=== PATIENT | male | born 1930 | race Caucasian/White ===

== ENCOUNTER 2017-06-29 19:39 | Inpatient (IN) | payer MEDICARE ==
--- NOTE | 2017-06-29 19:40 | ED Physician Chart ---
ED Chief Complaint/HPI - Patient Information Date Seen:: 06/29/17 Time Seen:: 19:40 Chief Complaint:: Increased confusion History of Present Illness:: 86 yo male was brought from SNF to ER for evaluation of increased confusion. The patient was recently diagnosed with UTI and was treated with levaquin. He had a cervical collar for a recent C2 fracture due to falls. ED Review of Systems - Review of Systems General/Constitutional: No fever Skin: No bruising Head: No headache Eyes: No pain ENT: No nasal drainage, Other (hearing loss) Neck: Neck pain Cardio Vascular: No chest pain Pulmonary: No SOB GI: No nausea, No vomiting Musculoskeletal: No bone or joint pain Neurological: Other (Confusion) ED Past Medical History - Past Medical History Past Medical History: HTN, CVA/TIA (with left side weakness), Other (UTI, CERVICAL 2 FRACTURE, RIGHT LEG CONTRACTED, A-FIB, MULTIPLE FALLS, PROSTATE CANCER, INTESTINAL AND RECTAL CANCER) Social History: Non Smoker, No Alcohol, No Drug Use Surgical History: None Family Medical History - Family Member Mother History Unknown: Yes ED Physical Exam - Physical Examination General/Constitutional: Awake Other Gen/Cons comments:: oriented to self and place Head: Atraumatic Eyes: PERRL Skin: No skin lesions ENMT: Nasal exam nl Other Neck comments:: Wearing cervical collar Respiratory: No Wheeze/Rhonchi/Rales Cardio Vascular: RRR, No murmur, gallop, rubs, NL S1 S2 GI: No tenderness/rebounding/guarding Extremities: No edema Other Neuro/Psych comments:: oriented to self and place ED Labs/Radiology/EKG Results - Radiology Results Results: CXR: no consolidation ED Assessment - Assessment General Assessment: Confusion Anemia Dehydration Assessment/Comments:: CBC, CMP, UA CXR, EKG NS 1L IV x 1 Admit to med surg ED Septic Shock - . Is Septic Shock (SBP<90, OR Lactate>4 mmol\L) present?: No ED Reassessment (Disposition) - Reassessment Reassessment Condition:: Unchanged - Patient Disposition Discharge/Transfer:: Acute Care w/in this hosp Admitting Medical Physician:: Adilia Handley ED Discharge Plan - Patient Disposition Admit/Discharge/Transfer: Acute Care w/in this hosp
[2017-06-29 20:01] LABS: % BASOPHILS 0.7 % (0.0-2.0); % EOSINOPHILS 2.7 % (0.0-5.0); % LYMPHOCYTES 24.1 % (20.0-50.0); % MONOCYTES 8.1 % (2.0-10.0); % NEUTROPHILS 64.4 % (40.0-80.0); EOSINOPHILE ABSOLUTE 0.2 Th/cmm (0.1-0.4); HEMATOCRIT 35.1 % (41.0-60); HEMOGLOBIN 11.6 gm/dL (12-16); LYMPHOCYTE ABSOLUTE 1.5 Th/cmm (1.5-3.0); MEAN CELL VOLUME 93.2 fl (80-99); MEAN CORPUSCULAR HEMOGLOBIN 30.8 pg (27.0-31.0); MEAN PLATELET VOLUME 6.8 fl; MONOCYTE ABSOLUTE 0.5 Th/cmm (0.3-1.0); NEUTROPHILE ABSOLUTE 3.9 Th/cmm (1.8-8.0); PLATELET COUNT 227 Th/cmm (150-400); RED BLOOD COUNT 3.76 Mil/cmm (3.80-5.80); RED CELL DISTRIBUTION WIDTH 13.5 % (11.5-20.0); WHITE BLOOD COUNT 6.1 Th/cmm (4.8-10.8)
[2017-06-29 20:19] LABS: ALB/GLOB RATIO 1.1 (1.0-1.8); ALBUMIN 3.3 gm/dL (4.2-5.5); ALKALINE PHOSPHATASE 58 U/L (34-104); ANION GAP 9.9 (7.0-16.0); BILIRUBIN,TOTAL 0.5 mg/dL (0.3-1.0); BUN - UREA NITROGEN 14 mg/dL (7-25); CALCIUM SERUM 8.8 mg/dL (8.6-10.3); CHLORIDE 104 mEq/L (98-107); CREATININE - SERUM 0.7 mg/dL (0.7-1.3); GLUCOSE 99 mg/dL (70-105); POTASSIUM SERUM 3.9 mEq/L (3.5-5.1); SGOT 19 U/L (13-39); SGPT/ALT 15 U/L (7-52); SODIUM SERUM 135 mEq/L (136-145); TOTAL PROTEIN,SERUM 6.2 gm/dL (6.0-8.3)
[2017-06-29 21:10] LABS: URINE MICROSCOPIC INDICATED? YES; URINE SOURCE RANDOM
[2017-06-29 21:13] LABS: URINE BILIRUBIN NEGATIVE (NEGATIVE); URINE BLOOD NEGATIVE (NEGATIVE); URINE GLUCOSE (UA) NEGATIVE (NEGATIVE); URINE KETONE TRACE mg/dL (NEGATIVE); URINE LEUKOCYTE ESTERASE NEGATIVE (NEGATIVE); URINE NITRATE NEGATIVE (NEGATIVE); URINE PROTEIN NEGATIVE (NEGATIVE)
[2017-06-29 21:20] LABS: URINE CLARITY CLEAR (CLEAR); URINE COLOR YELLOW
[2017-06-29 21:21] LABS: URINE BACTERIA NONE SEEN /hpf (NONE SEEN); URINE EPITHELIAL CELLS NONE SEEN /lpf (FEW); URINE RBC NONE SEEN /hpf (0-5); URINE WBC NONE SEEN /hpf (0-5)
[2017-06-29] MEDS ORDERED: Sodium Chloride 0.9% 1,000 ML IV ONE (21:33)
[2017-06-30] MEDS ORDERED: cefTRIAXone 1 GM in Sodium Chloride 0.9% 50 ML IV ONE
[2017-06-30] MEDS: Sodium Chloride 0.45% 1,000 ML IV SCH ×3 (00:59→19:41)
[2017-06-30 04:13] VITALS: BP 134/67
[2017-06-30 05:51] LABS: % BASOPHILS 0.8 % (0.0-2.0); % LYMPHOCYTES 17.7 % (20.0-50.0); % MONOCYTES 6.2 % (2.0-10.0); % NEUTROPHILS 73.3 % (40.0-80.0); BASOPHILE ABSOLUTE 0.1 Th/cumm (0-0.2); EOSINOPHILE ABSOLUTE 0.2 Th/cmm (0.1-0.4); HEMATOCRIT 34.2 % (41.0-60); HEMOGLOBIN 11.7 gm/dL (12-16); LYMPHOCYTE ABSOLUTE 1.5 Th/cmm (1.5-3.0); MEAN CELL VOLUME 92.5 fl (80-99); MEAN CORPUSCULAR HEMOGLOBIN 31.5 pg (27.0-31.0); MEAN CORPUSCULAR HGB CONC 34.1 pg (28.0-36.0); MONOCYTE ABSOLUTE 0.5 Th/cmm (0.3-1.0); PLATELET COUNT 207 Th/cmm (150-400); RED CELL DISTRIBUTION WIDTH 13.4 % (11.5-20.0)
[2017-06-30 05:56] LABS: WHITE BLOOD COUNT 8.3 Th/cmm (4.8-10.8)
[2017-06-30 06:05] LABS: ANION GAP 8.7 (7.0-16.0); BUN - UREA NITROGEN 14 mg/dL (7-25); CALCIUM SERUM 8.7 mg/dL (8.6-10.3); CHLORIDE 104 mEq/L (98-107); CHOLESTEROL 163 mg/dL (<200); CREATININE - SERUM 0.7 mg/dL (0.7-1.3); GLUCOSE 104 mg/dL (70-105); HDL -HIGH DENSITY LIPOPROTEIN 58 mg/dL (23-92); POTASSIUM SERUM 3.7 mEq/L (3.5-5.1); SODIUM SERUM 133 mEq/L (136-145); TRIGLYCERIDES 93 mg/dL (<150)
--- NOTE | 2017-06-30 08:12 | Diagnostic Imaging Report ---
Chest x-ray single view History: Shortness of breath Comparison: None The heart size is normal. No focal pulmonary parenchymal processes. No hilar or mediastinal abnormalities. COPD changes are noted Impression: No acute abnormalities, COPD changes bilaterally.
[2017-06-30] MEDS ORDERED: VTE Chemical Prophylaxis Screen/Admission MC PRN (09:45)
[2017-06-30] MEDS ORDERED: Influenza Vaccine 0.5 mL Syr IM ONE (10:21)
[2017-06-30] MEDS ORDERED: Pneumococcal Vaccine 0.5 mL Vial IM ONE (10:21)
--- NOTE | 2017-06-30 10:52 | Diagnostic Imaging Report ---
Head CT without intravenous contrast Indication: confusion Comparison: None Technique: Axial images were obtained from the vertex to the skull base without IV contrast. Coronal reconstructions were made. Total DLP: 533, CTDI31.3 FINDINGS: Images of the brain obtained without contrast demonstrate no evidence of an acute hemorrhage. Atrophy noted. Moderate white matter is noted. The ventricles and basal cisterns are patent. No mass effect or midline shift. There is minimal atherosclerosis of carotid siphons. No evidence of a skull fracture or focal soft tissue swelling. There is irregularity of the left calvarium frontal calvarium. No focal soft tissue swelling. Chronic appearing left leg zygomatic arch fracture is noted. IMPRESSION: No evidence of an acute intracranial hemorrhage. Atrophy. Moderate supratentorial white matter disease which is nonspecific and may be due to chronic microvessel ischemia. Irregularity of the left likely calvarium which may be sequela of previous trauma/possibly old fracture or old surgery, please correlate clinically. Chronic appearing left leg zygomatic arch fracture. Please correlate with clinical findings.
[2017-06-30] MEDS: cefTRIAXone 1 GM in 0.9% NS 50 ML IV SCH (21:11)
[2017-07-01] MEDS: Sodium Chloride 0.45% 1,000 ML IV SCH ×3 (03:19→15:17)
[2017-07-01] MEDS: cefTRIAXone 1 GM in 0.9% NS 50 ML IV SCH (21:20)
[2017-07-02] MEDS: Sodium Chloride 0.45% 1,000 ML IV SCH ×2 (07:21)
--- NOTE | 2017-07-06 00:46 | History & Physical ---
ADMIT DATE: 06/30/2017 HISTORY OF PRESENT ILLNESS: The patient was admitted on 06/29/2017 to [facility]. Actually, the patient came from [facility] because of increasing confusion, agitation and diagnosed as UTI. REVIEW OF SYSTEMS: Negative. PAST MEDICAL HISTORY: Hypertension, history of CVA, history of atrial fib, history of multiple falls, history of prostate CA. PHYSICAL EXAMINATION: HEENT: Head examination is normal. ENT normal. LUNGS: Clear. CARDIOVASCULAR SYSTEM: S1, S2 heard. ABDOMEN: Soft. Bowel sounds are present. CENTRAL NERVOUS SYSTEM: Increasing confusion. DIAGNOSES: Toxic metabolic encephalopathy, anemia, dehydration, sepsis, history of CVA, history of hypertension, history of atrial fib. The patient is being admitted. We will go ahead and have a workup including antibiotic, and ID doctor and Neurology has been called. JOB# [id number]
--- NOTE | 2017-07-31 18:50 | Discharge Summary ---
DATE OF DISCHARGE: 07/02/2017 ADMITTING DIAGNOSES: Toxic metabolic encephalopathy, anemia, dehydration, sepsis, history of cerebrovascular accident, history of hypertension, history of atrial fibrillation, and chronic obstructive pulmonary disease. The patient was treated for all of that including Neurology consult and ID consult and Cardiology consult. The patient improved and the patient was in stable condition on 07/02/2017. FINAL DIAGNOSES: Improved mental status, status post sepsis, history of hypertension, history of atrial fibrillation, history of cerebrovascular accident, and history of chronic obstructive pulmonary disease was made. The patient is going to be transferred back to [facility] where I will be following the patient. CONDITION AT THE TIME OF DISCHARGE: Stable. MEDICATIONS: See the reconciliation sheet. ACTIVITY: As tolerated. JOB# [id number]
== END 2017-07-02 15:15 | disposition home or self-care (01) | DRG 871 ==
LOC: ER 19:39 → MSI 22:39 → TELE 06-30 00:11
PROVIDERS: ADMIT Internal Medicine; ATTEND Internal Medicine
DX: A41.9 Sepsis, unspecified organism (principal); G92 Toxic encephalopathy; I48.91 Unspecified atrial fibrillation; E86.0 Dehydration; I69.354 Hemiplegia and hemiparesis following cerebral infarction affecting left non-dominant side; D64.9 Anemia, unspecified; R41.0 Disorientation, unspecified; Z66 Do not resuscitate; I10 Essential (primary) hypertension; Z85.46 Personal history of malignant neoplasm of prostate
CPT/HCPCS: 36415-UA; 70450-TC; 71045-TC; 80048-TC; 80053-TC; 80061-TC; 81001-TC; 82140-TC; 83880-TC; 84443-TC; 84484-TC; 85025-TC; 87086-90; 93005; J0696; J2060; J7030

== ENCOUNTER 2018-04-08 14:59 | Inpatient (IN) | payer MEDICARE, MEDICAID ==
[2018-04-08] MEDS ORDERED: Lactated Ringer 1,000 ML IV ONE (15:03)
[2018-04-08 15:34] LABS: % BASOPHILS 3.6 % (0.0-2.0); % EOSINOPHILS 1.7 % (0.0-5.0); % LYMPHOCYTES 18.8 % (20.0-50.0); % MONOCYTES 4.6 % (2.0-10.0); % NEUTROPHILS 71.3 % (40.0-80.0); BASOPHILE ABSOLUTE 0.3 Th/cumm (0-0.2); EOSINOPHILE ABSOLUTE 0.1 Th/cmm (0.1-0.4); HEMATOCRIT 38.2 % (41.0-60); HEMOGLOBIN 13.1 gm/dL (12-16); LYMPHOCYTE ABSOLUTE 1.5 Th/cmm (1.5-3.0); MEAN CELL VOLUME 92.1 fl (80-99); MEAN CORPUSCULAR HEMOGLOBIN 31.5 pg (27.0-31.0); MEAN CORPUSCULAR HGB CONC 34.2 pg (28.0-36.0); MEAN PLATELET VOLUME 8.4 fl; MONOCYTE ABSOLUTE 0.4 Th/cmm (0.3-1.0); NEUTROPHILE ABSOLUTE 5.9 Th/cmm (1.8-8.0); PLATELET COUNT 159 Th/cmm (150-400); RED BLOOD COUNT 4.15 Mil/cmm (3.80-5.80); RED CELL DISTRIBUTION WIDTH 13.8 % (11.5-20.0); WHITE BLOOD COUNT 8.2 Th/cmm (4.8-10.8)
[2018-04-08 15:57] LABS: ALBUMIN 3.8 gm/dL (4.2-5.5); ALKALINE PHOSPHATASE 67 U/L (34-104); AMYLASE SERUM 18 U/L (29-103); BILIRUBIN,TOTAL 0.6 mg/dL (0.3-1.0); BUN - UREA NITROGEN 25 mg/dL (7-25); CALCIUM SERUM 9.4 mg/dL (8.6-10.3); CARBON DIOXIDE 23.5 mEq/L (21.0-31.0); CHLORIDE 106 mEq/L (98-107); CREATININE - SERUM 1.1 mg/dL (0.7-1.3); GLUCOSE 102 mg/dL (70-105); LIPASE 10 U/L (11-82); MAGNESIUM 2.2 mg/dL (1.9-2.7); POTASSIUM SERUM 4.5 mEq/L (3.5-5.1); SGOT 19 U/L (13-39); SGPT/ALT 10 U/L (7-52); SODIUM SERUM 137 mEq/L (136-145); TOTAL PROTEIN,SERUM 7.5 gm/dL (6.0-8.3)
[2018-04-08 16:33] LABS: URINE BILIRUBIN NEGATIVE (NEGATIVE); URINE BLOOD NEGATIVE (NEGATIVE); URINE GLUCOSE (UA) NEGATIVE (NEGATIVE); URINE KETONE TRACE mg/dL (NEGATIVE); URINE LEUKOCYTE ESTERASE SMALL (NEGATIVE); URINE NITRATE NEGATIVE (NEGATIVE); URINE PROTEIN NEGATIVE (NEGATIVE)
[2018-04-08 16:35] LABS: URINE CLARITY CLEAR (CLEAR); URINE COLOR YELLOW; URINE MICROSCOPIC INDICATED? YES
[2018-04-08 16:38] LABS: URINE SOURCE CLEAN CATCH
[2018-04-08 16:39] LABS: URINE BACTERIA 3+ /hpf (NONE SEEN); URINE EPITHELIAL CELLS FEW /lpf (FEW); URINE RBC 0-2 /hpf (0-5)
--- NOTE | 2018-04-08 16:41 | ED Physician Chart ---
ED Chief Complaint/HPI - Patient Information Date Seen:: 04/08/18 Time Seen:: 15:22 Chief Complaint:: abd pain, n and v History of Present Illness:: abd pain, n and v in a patient with prior abdominal surgery for colon cancer resection patient last passed gas this a.m. Allergies:: Allergies Allergy/AdvReac Type Severity Reaction Status Date / Time No Known Allergies Allergy Verified 06/29/17 19:59 Vitals:: Vital Signs - 8 hr 04/08/18 15:22 Temp 98.2 F HR 69 RR 19 BP 122/63 O2 Sat % 98 Historian:: Family Member, Medical Records Review:: Nurse's Note Reviewed, Transfer documents Reviewed ED Review of Systems - Review of Systems General/Constitutional: No fever, No chills, No weight loss, No weakness, No diaphoresis, No edema, No loss of appetite Skin: No skin lesions, No rash, No bruising Head: No headache, No light-headedness Eyes: No loss of vision, No pain, No diplopia ENT: No earache, No nasal drainage, No sore throat, No tinnitus Neck: No neck pain, No swelling, No thyromegaly, No stiffness, No mass noted Cardio Vascular: No chest pain, No palpitations, No PND, No orthopnea, No edema Pulmonary: No SOB, No cough, No sputum, No wheezing GI: Nausea, Vomiting, No diarrhea, Pain, No melena, No hematochezia, No constipation, No hematemesis G/U: No dysuria, No frequency, No hematuria Musculoskeletal: No bone or joint pain, No back pain, No muscle pain Endocrine: No polyuria, No polydipsia Psychiatric: No prior psych history, No depression, No anxiety, No suicidal ideation Hematopoietic: No bruising, No lymphadenopathy Allergic/Immuno: No urticaria, No angioedema Neurological: No syncope, No focal symptoms, No weakness, No paresthesia, No headache, No seizure, No dizziness, No confusion, No vertigo ED Past Medical History - Past Medical History Obtainable: No Past Medical History: Other (prostate cancer; colon cancer with surgical resection) Surgical History: other (colon cancer (history provided by daughter after case presentation to Dr. Kiran)) Family Medical History - Family Member Mother History Unknown: Yes ED Physical Exam - Physical Examination General/Constitutional: Awake, Well-developed, well-nourished, Alert, No distress, Non-toxic appearing Other Gen/Cons comments:: not ambulatory due to contracted right knee. Head: Atraumatic Eyes: Lids, conjuctiva normal Skin: Nl inspection ENMT: External ears, nose nl Neck: Nontender, No nuchal rigidity Respiratory: Nl effort/Exclusion, Clear to Auscultation, No Wheeze/Rhonchi/Rales Cardio Vascular: RRR, No murmur, gallop, rubs, NL S1 S2 Other GI comments:: Distended abdomen with decreased bowel sounds. No tinkles or rushes. Tender to the touch. No peritoneal signs. Other Extremities comments:: R knee contracture. ED Labs/Radiology/EKG Results - Lab Results Results: Laboratory Tests 04/08/18 04/08/18 04/08/18 15:10 15:10 15:10 WBC 8.2 RBC 4.15 Hgb 13.1 Hct 38.2 L MCV 92.1 MCH 31.5 H MCHC Differential 34.2 RDW 13.8 Plt Count 159 MPV 8.4 Neutrophils % 71.3 Lymphocytes % 18.8 L Monocytes % 4.6 Eosinophils % 1.7 Basophils % 3.6 H Sodium 137 Potassium 4.5 Chloride 106 Carbon Dioxide 23.5 Anion Gap 12.0 BUN 25 Creatinine 1.1 Est GFR ( Amer) TNP Est GFR (Non-Af Amer) TNP BUN/Creatinine Ratio 22.7 Glucose 102 Whole Bld Lactic Acid Calcium 9.4 Phosphorus 3.0 Magnesium 2.2 Total Bilirubin 0.6 AST 19 ALT 10 Alkaline Phosphatase 67 Total Protein 7.5 Albumin 3.8 L Globulin 3.7 Albumin/Globulin Ratio 1.0 Amylase 18 L Lipase 10 L TSH 1.79 Urine Color Urine Clarity Urine pH Ur Specific [place] Urine Protein Urine Glucose (UA) Urine Ketones Urine Blood Urine Nitrate Urine Bilirubin Urine Urobilinogen Ur Leukocyte Esterase 04/08/18 04/08/18 15:10 16:25 WBC RBC Hgb Hct MCV MCH MCHC Differential RDW Plt Count MPV Neutrophils % Lymphocytes % Monocytes % Eosinophils % Basophils % Sodium Potassium Chloride Carbon Dioxide Anion Gap BUN Creatinine Est GFR ( Amer) Est GFR (Non-Af Amer) BUN/Creatinine Ratio Glucose Whole Bld Lactic Acid 0.97 Calcium Phosphorus Magnesium Total Bilirubin AST ALT Alkaline Phosphatase Total Protein Albumin Globulin Albumin/Globulin Ratio Amylase Lipase TSH Urine Color YELLOW Urine Clarity CLEAR Urine pH 6.0 Ur Specific [place] 1.025 Urine Protein NEGATIVE Urine Glucose (UA) NEGATIVE Urine Ketones TRACE Urine Blood NEGATIVE Urine Nitrate NEGATIVE Urine Bilirubin NEGATIVE Urine Urobilinogen 1.0 Ur Leukocyte Esterase SMALL H ED Assessment - Assessment General Assessment: spoke to Dr. Handley who will admit the patient. Phone call at 4:[address] Kiran to be consulted. Assessment/Comments:: Dr. Kiran informed of this consult at 4:45 p.m. EKG FROM 16:48:06 p.m.: normal sinus rhythm, movement artifact, nonspecific ST T wave changes. CT scan of the abdomen: "mildly dialted small and large bowel. non-specific apeparnace; severe degenerative chagnes of spin along with chronic changes about hps; ASVD; SLIGHT HAZINESS OF MESENTERY. FINDING OF QUESTIONABLE SIGNIFICANCE. ED Septic Shock - . Is Septic Shock (SBP<90, OR Lactate>4 mmol\\L) present?: No - <6hrs of presentation: Vital Signs: Vital Signs - 8 hr 04/08/18 15:22 Temp 98.2 F HR 69 RR 19 BP 122/63 O2 Sat % 98 ED Reassessment (Disposition) - Reassessment Reassessment Condition:: Improved - Diagnosis Diagnosis:: Partial small bowel obstruction, not complete - Patient Disposition Discharge/Transfer:: Acute Care w/in this hosp Admitted to:: Telemetry Admitting Medical Physician:: Adliia Handley Condition at Disposition:: Stable, Improved
[2018-04-08] MEDS ORDERED: Piperacillin Sodium/Tazobact 3.375 gm Vial IV ONE (16:48)
[2018-04-08] MEDS ORDERED: Morphine Sulfate 2 mg/mL 1mL Syr IV PRN ×2 (17:31→17:32)
--- NOTE | 2018-04-08 18:33 | General Progress Note ---
Subjective - Review of Systems Service Date: 04/08/18 Events since last encounter: chart reviewed question of SBO abdomen scar fromprevious surgery (patient unable to give info on what surgery) SBO series ordered Objective - Results Result Diagrams: 04/08/18 15:10 04/08/18 15:10 Recent Labs: Laboratory Last Values WBC 8.2 Th/cmm (4.8-10.8) 04/08/18 15:10 RBC 4.15 Mil/cmm (3.80-5.80) 04/08/18 15:10 Hgb 13.1 gm/dL (12-16) 04/08/18 15:10 Hct 38.2 % (41.0-60) L 04/08/18 15:10 MCV 92.1 fl (80-99) 04/08/18 15:10 MCH 31.5 pg (27.0-31.0) H 04/08/18 15:10 MCHC Differential 34.2 pg (28.0-36.0) 04/08/18 15:10 RDW 13.8 % (11.5-20.0) 04/08/18 15:10 Plt Count 159 Th/cmm (150-400) 04/08/18 15:10 MPV 8.4 fl 04/08/18 15:10 Neutrophils % 71.3 % (40.0-80.0) 04/08/18 15:10 Lymphocytes % 18.8 % (20.0-50.0) L 04/08/18 15:10 Monocytes % 4.6 % (2.0-10.0) 04/08/18 15:10 Eosinophils % 1.7 % (0.0-5.0) 04/08/18 15:10 Basophils % 3.6 % (0.0-2.0) H 04/08/18 15:10 Sodium 137 mEq/L (136-145) 04/08/18 15:10 Potassium 4.5 mEq/L (3.5-5.1) 04/08/18 15:10 Chloride 106 mEq/L (98-107) 04/08/18 15:10 Carbon Dioxide 23.5 mEq/L (21.0-31.0) 04/08/18 15:10 Anion Gap 12.0 (7.0-16.0) 04/08/18 15:10 BUN 25 mg/dL (7-25) 04/08/18 15:10 Creatinine 1.1 mg/dL (0.7-1.3) 04/08/18 15:10 Est GFR ( Amer) TNP 04/08/18 15:10 Est GFR (Non-Af Amer) TNP 04/08/18 15:10 BUN/Creatinine Ratio 22.7 04/08/18 15:10 Glucose 102 mg/dL (70-105) 04/08/18 15:10 Whole Bld Lactic Acid 0.97 mmol/L (0.60-1.99) 04/08/18 15:10 Calcium 9.4 mg/dL (8.6-10.3) 04/08/18 15:10 Phosphorus 3.0 mg/dL (2.5-5.0) 04/08/18 15:10 Magnesium 2.2 mg/dL (1.9-2.7) 04/08/18 15:10 Total Bilirubin 0.6 mg/dL (0.3-1.0) 04/08/18 15:10 AST 19 U/L (13-39) 04/08/18 15:10 ALT 10 U/L (7-52) 04/08/18 15:10 Alkaline Phosphatase 67 U/L (34-104) 04/08/18 15:10 Total Protein 7.5 gm/dL (6.0-8.3) 04/08/18 15:10 Albumin 3.8 gm/dL (4.2-5.5) L 04/08/18 15:10 Globulin 3.7 gm/dL 04/08/18 15:10 Albumin/Globulin Ratio 1.0 (1.0-1.8) 04/08/18 15:10 Amylase 18 U/L (29-103) L 04/08/18 15:10 Lipase 10 U/L (11-82) L 04/08/18 15:10 TSH 1.79 uIU/ml (0.34-5.60) 04/08/18 15:10 Urine Source CLEAN CATCH 04/08/18 16:25 Urine Color YELLOW 04/08/18 16:25 Urine Clarity CLEAR (CLEAR) 04/08/18 16:25 Urine pH 6.0 (4.6 - 8.0) 04/08/18 16:25 Ur Specific [place] 1.025 (1.005-1.030) 04/08/18 16:25 Urine Protein NEGATIVE mg/dL (NEGATIVE) 04/08/18 16:25 Urine Glucose (UA) NEGATIVE mg/dL (NEGATIVE) 04/08/18 16:25 Urine Ketones TRACE mg/dL (NEGATIVE) 04/08/18 16:25 Urine Blood NEGATIVE (NEGATIVE) 04/08/18 16:25 Urine Nitrate NEGATIVE (NEGATIVE) 04/08/18 16:25 Urine Bilirubin NEGATIVE (NEGATIVE) 04/08/18 16:25 Urine Urobilinogen 1.0 E.U./dL (0.2 - 1.0) 04/08/18 16:25 Ur Leukocyte Esterase SMALL (NEGATIVE) H 04/08/18 16:25 Urine RBC 0-2 /hpf (0-5) H 04/08/18 16:25 Urine WBC 6-10 /hpf (0-5) 04/08/18 16:25 Ur Epithelial Cells FEW /lpf (FEW) 04/08/18 16:25 Urine Bacteria 3+ /hpf (NONE SEEN) H 04/08/18 16:25 - Physical Exam Vitals and I&O: Vital Signs Temp 97.6 F 04/08/18 17:49 Pulse 60 04/08/18 17:49 Resp 71 04/08/18 17:49 BP 117/54 04/08/18 17:49 Pulse Ox 96 04/08/18 17:49 Intake & Output 04/07/18 04/08/18 04/08/18 18:59 06:59 18:59 Weight (lbs) 74.843 kg Other: Weight Source Estimated Active Medications: Current Medications Lactated Ringer's (Lactated Ringer) 1,000 mls @ 200 mls/hr IV .Q5H ONE Stop: 04/08/18 20:02 Last Admin: 04/08/18 15:27 Dose: 200 mls/hr Piperacillin Sod/Tazobactam (Sod 3.375 gm/ Sodium Chloride) 50 mls @ 100 mls/ hr IV X1 ONE Stop: 04/08/18 17:10 Last Admin: 04/08/18 16:50 Dose: 100 mls/hr Lactated Ringer's (Lactated Ringer) 1,000 mls @ 145 mls/hr IV .Q6H54M [facility] Stop: 06/07/18 17:29 Ceftriaxone Sodium 1 gm/ (Sodium Chloride) 50 mls @ 100 mls/hr IV Q24HR [facility] Stop: 06/07/18 17:44 Morphine Sulfate (Morphine) 1 mg IV Q4HR PRN PRN Reason: Pain (Mild) Stop: 06/07/18 17:30 Morphine Sulfate (Morphine) 2 mg IV Q4HR PRN PRN Reason: Pain (Moderate) Stop: 06/07/18 17:31 Ondansetron HCl (Zofran) 4 mg IV Q6HR PRN PRN Reason: Vomiting Stop: 06/07/18 17:28 Assessment/Plan - Problem List Patient Problems: All Active Problems WEAKNESS WITH NAUSEA/VOMITING (Acute)
[2018-04-08] MEDS ORDERED: Diatrizoate Meglumine/Diatri 30 mL Sol ONE (18:40)
[2018-04-08] MEDS: Lactated Ringer 1,000 ML IV SCH (21:43)
[2018-04-08] MEDS: cefTRIAXone 1 GM in Sodium Chloride 0.9% 50 ML IV SCH (21:49)
--- NOTE | 2018-04-08 21:58 | History & Physical ---
ADMIT DATE: 04/08/2018 HISTORY OF PRESENT ILLNESS: The patient is very well known to me. The patient resident of [facility]. The patient is known to have history of multiple problems including history of abdominal surgery in the past. The patient is known to have benign enlargement of the prostate, prostate cancer, colon cancer, surgical resection, and the patient has history of COPD. The patient came to the Emergency Room because of increasing nausea, vomiting, abdominal pain, and found to have subacute intestinal obstruction. ER doctor admitted the patient. REVIEW OF SYSTEMS: Other than abdominal pain and vomiting, negative PAST MEDICAL HISTORY: History of prostate cancer, colon cancer, surgical resection. PHYSICAL EXAMINATION: HEAD: Normal. ENT: Normal. NECK: Supple, nontender. LUNGS: Clear. CARDIOVASCULAR SYSTEM: S1, S2 heard. ABDOMEN: Soft. Abdomen is distended. Decreased bowel sounds. LABORATORY DATA: White count was 8.2, hemoglobin was 13, hematocrit was 38. Urine showed small leukocyte esterase positive. DIAGNOSES: Acute abdominal pain, subacute intestinal obstruction, history of prior surgery, colon history of prostate cancer, history of chronic obstructive pulmonary disease, and urinary tract infection. PLAN: The patient is being admitted. I will go ahead and give him antibiotics and IV fluids. Dr. Nile Amador, ID consult. JOB# [id number]
[2018-04-09 05:35] LABS: % BASOPHILS 0.5 % (0.0-2.0); % EOSINOPHILS 3.7 % (0.0-5.0); % LYMPHOCYTES 17.6 % (20.0-50.0); % MONOCYTES 7.6 % (2.0-10.0); % NEUTROPHILS 70.6 % (40.0-80.0); EOSINOPHILE ABSOLUTE 0.2 Th/cmm (0.1-0.4); HEMOGLOBIN 11.2 gm/dL (12-16); MEAN CELL VOLUME 92.8 fl (80-99); MEAN CORPUSCULAR HEMOGLOBIN 31.5 pg (27.0-31.0); MEAN PLATELET VOLUME 7.6 fl; MONOCYTE ABSOLUTE 0.4 Th/cmm (0.3-1.0); NEUTROPHILE ABSOLUTE 4.3 Th/cmm (1.8-8.0); PLATELET COUNT 153 Th/cmm (150-400); RED BLOOD COUNT 3.55 Mil/cmm (3.80-5.80); RED CELL DISTRIBUTION WIDTH 13.6 % (11.5-20.0); WHITE BLOOD COUNT 5.9 Th/cmm (4.8-10.8)
[2018-04-09 05:44] LABS: HEMATOCRIT 32.9 % (41.0-60)
[2018-04-09 05:50] LABS: AMYLASE SERUM 16 U/L (29-103); ANION GAP 12.6 (7.0-16.0); BUN - UREA NITROGEN 22 mg/dL (7-25); CALCIUM SERUM 8.4 mg/dL (8.6-10.3); CARBON DIOXIDE 21.2 mEq/L (21.0-31.0); CHLORIDE 109 mEq/L (98-107); CHOLESTEROL 115 mg/dL (<200); CREATININE - SERUM 0.9 mg/dL (0.7-1.3); GLUCOSE 96 mg/dL (70-105); HDL -HIGH DENSITY LIPOPROTEIN 46 mg/dL (23-92); LIPASE 5 U/L (11-82); POTASSIUM SERUM 3.8 mEq/L (3.5-5.1); SODIUM SERUM 139 mEq/L (136-145); TRIGLYCERIDES 49 mg/dL (<150)
[2018-04-09] MEDS: Lactated Ringer 1,000 ML IV SCH ×3 (05:52→20:49)
--- NOTE | 2018-04-09 08:06 | Diagnostic Imaging Report ---
Small bowel follow-through HISTORY: Abdominal distention, pain Water-soluble contrast administered orally. There is free flow contrast from the stomach. Dilated loops of small bowel noted through 3-4 hours. There is delayed transit to the colon without significant dilatation. Findings associated with a partial small bowel obstruction cannot be excluded. At 12 hours, contrast is noted within nondilated large bowel and within the rectal region. There has been complete passage of contrast through the small bowel. IMPRESSION: Delayed transit of contrast associated with dilated loops of small bowel which eventually passed through the colon. Changes associated with transient partial small bowel obstruction cannot be excluded. Clinical correlation and follow-up recommended.
--- NOTE | 2018-04-09 08:08 | Diagnostic Imaging Report ---
Portable chest x-ray HISTORY: Pain The overall heart size is difficult to assess with portable technique and a poor inspiration, but appears to be within normal limits. No focal pulmonary processes. No hilar or mediastinal abnormalities. IMPRESSION: No acute abnormalities
--- NOTE | 2018-04-09 08:12 | Diagnostic Imaging Report ---
CT scan abdomen and pelvis without intravenous contrast HISTORY: Pain, nausea/vomiting Total DLP equals 610 CTDI equals 12.4 Axial sections were obtained from the xiphoid process down to the pubic symphysis. Limited sections of the lower chest demonstrate chronic mild pleural and parenchymal changes within the right left lower hemithoracic regions. No focal lesions seen within the liver. The spleen appears normal. No focal abnormality seen in the region of the pancreas. No significant focal renal lesions. Atherosclerotic calcification seen in the aorta and iliac vessels. There are multiple loops of dilated small bowel. Nondilated large bowel is seen. Changes associated with small bowel obstruction cannot be excluded. No abnormal masses or fluid collections seen within the pelvis. The prostate gland is enlarged. There is a distended urinary bladder. Severe degenerative changes noted throughout the spine. IMPRESSION: 1. Mildly dilated small bowel. Changes associated with a degree of small bowel obstruction cannot be excluded. Clinical correlation is needed. 2. Mild haziness of the mesentery of questionable significance which should be correlated clinically. 3. Severe degenerative changes throughout the spine and about the hips 4. Atherosclerotic vascular changes
--- NOTE | 2018-04-09 08:20 | Diagnostic Imaging Report ---
Portable chest x-ray HISTORY: Nasogastric tube placement, shortness of breath Compared with the prior exam performed earlier in the day (1510 hours), a nasogastric tube is seen. The tip is in the region of the stomach. No change in the pulmonary status. IMPRESSION: 1. Nasogastric tube projecting over the gastric area.
[2018-04-09] MEDS: Rivastigmine 9.5 mg/24 hr Tdm TD SCH (08:45)
[2018-04-09] MEDS: Calcium Carb/Vit D 500 mg/200 U Tab PO SCH (08:45)
[2018-04-09] MEDS: Aspirin 81mg Chewable Tab PO SCH (08:46)
[2018-04-09] MEDS: Multivitamin w/ Minerals Tab PO SCH (08:46)
[2018-04-09] MEDS: Diltiazem CD 120 mg 24H PO SCH (08:46)
[2018-04-09] MEDS ORDERED: CALCIUM CARBONATE PO SCH (09:00)
[2018-04-09] MEDS ORDERED: VITAMIN D3 PO SCH (09:00)
[2018-04-09] MEDS ORDERED: [UNRECOGNIZED DRUG - OTHER] PO SCH (09:00)
[2018-04-09] MEDS ORDERED: DILTIAZEM HCL 240 MG PO SCH (09:00)
--- NOTE | 2018-04-09 10:42 | General Progress Note ---
Subjective - Review of Systems Service Date: 04/09/18 Events since last encounter: chart reviewed SBO series noted had BM, NGT drainage minimal start clears Objective - Results Result Diagrams: 04/09/18 05:30 04/09/18 05:30 Recent Labs: Laboratory Last Values WBC 5.9 Th/cmm (4.8-10.8) 04/09/18 05:30 RBC 3.55 Mil/cmm (3.80-5.80) L 04/09/18 05:30 Hgb 11.2 gm/dL (12-16) L 04/09/18 05:30 Hct 32.9 % (41.0-60) L D 04/09/18 05:30 MCV 92.8 fl (80-99) 04/09/18 05:30 MCH 31.5 pg (27.0-31.0) H 04/09/18 05:30 MCHC Differential 34.0 pg (28.0-36.0) 04/09/18 05:30 RDW 13.6 % (11.5-20.0) 04/09/18 05:30 Plt Count 153 Th/cmm (150-400) 04/09/18 05:30 MPV 7.6 fl 04/09/18 05:30 Neutrophils % 70.6 % (40.0-80.0) 04/09/18 05:30 Lymphocytes % 17.6 % (20.0-50.0) L 04/09/18 05:30 Monocytes % 7.6 % (2.0-10.0) 04/09/18 05:30 Eosinophils % 3.7 % (0.0-5.0) 04/09/18 05:30 Basophils % 0.5 % (0.0-2.0) 04/09/18 05:30 Sodium 139 mEq/L (136-145) 04/09/18 05:30 Potassium 3.8 mEq/L (3.5-5.1) 04/09/18 05:30 Chloride 109 mEq/L (98-107) H 04/09/18 05:30 Carbon Dioxide 21.2 mEq/L (21.0-31.0) 04/09/18 05:30 Anion Gap 12.6 (7.0-16.0) 04/09/18 05:30 BUN 22 mg/dL (7-25) 04/09/18 05:30 Creatinine 0.9 mg/dL (0.7-1.3) 04/09/18 05:30 Est GFR ( Amer) TNP 04/09/18 05:30 Est GFR (Non-Af Amer) TNP 04/09/18 05:30 BUN/Creatinine Ratio 24.4 04/09/18 05:30 Glucose 96 mg/dL (70-105) 04/09/18 05:30 Whole Bld Lactic Acid 0.97 mmol/L (0.60-1.99) 04/08/18 15:10 Calcium 8.4 mg/dL (8.6-10.3) L 04/09/18 05:30 Phosphorus 3.0 mg/dL (2.5-5.0) 04/08/18 15:10 Magnesium 2.2 mg/dL (1.9-2.7) 04/08/18 15:10 Total Bilirubin 0.6 mg/dL (0.3-1.0) 04/08/18 15:10 AST 19 U/L (13-39) 04/08/18 15:10 ALT 10 U/L (7-52) 04/08/18 15:10 Alkaline Phosphatase 67 U/L (34-104) 04/08/18 15:10 Total Protein 7.5 gm/dL (6.0-8.3) 04/08/18 15:10 Albumin 3.8 gm/dL (4.2-5.5) L 04/08/18 15:10 Globulin 3.7 gm/dL 04/08/18 15:10 Albumin/Globulin Ratio 1.0 (1.0-1.8) 04/08/18 15:10 Triglycerides 49 mg/dL (<150) 04/09/18 05:30 Cholesterol 115 mg/dL (<200) 04/09/18 05:30 LDL Cholesterol Direct 58 mg/dL (75-193) L 04/09/18 05:30 HDL Cholesterol 46 mg/dL (23-92) 04/09/18 05:30 Amylase 16 U/L (29-103) L 04/09/18 05:30 Lipase 5 U/L (11-82) L 04/09/18 05:30 TSH 0.74 uIU/ml (0.34-5.60) 04/09/18 05:30 Urine Source CLEAN CATCH 04/08/18 16:25 Urine Color YELLOW 04/08/18 16:25 Urine Clarity CLEAR (CLEAR) 04/08/18 16:25 Urine pH 6.0 (4.6 - 8.0) 04/08/18 16:25 Ur Specific [place] 1.025 (1.005-1.030) 04/08/18 16:25 Urine Protein NEGATIVE mg/dL (NEGATIVE) 04/08/18 16:25 Urine Glucose (UA) NEGATIVE mg/dL (NEGATIVE) 04/08/18 16:25 Urine Ketones TRACE mg/dL (NEGATIVE) 04/08/18 16:25 Urine Blood NEGATIVE (NEGATIVE) 04/08/18 16:25 Urine Nitrate NEGATIVE (NEGATIVE) 04/08/18 16:25 Urine Bilirubin NEGATIVE (NEGATIVE) 04/08/18 16:25 Urine Urobilinogen 1.0 E.U./dL (0.2 - 1.0) 04/08/18 16:25 Ur Leukocyte Esterase SMALL (NEGATIVE) H 04/08/18 16:25 Urine RBC 0-2 /hpf (0-5) H 04/08/18 16:25 Urine WBC 6-10 /hpf (0-5) 04/08/18 16:25 Ur Epithelial Cells FEW /lpf (FEW) 04/08/18 16:25 Urine Bacteria 3+ /hpf (NONE SEEN) H 04/08/18 16:25 - Physical Exam Vitals and I&O: Vital Signs Temp 98.6 F 04/09/18 08:44 Pulse 72 04/09/18 08:46 Resp 19 04/09/18 08:44 BP 124/68 04/09/18 08:46 Pulse Ox 98 04/09/18 08:44 Intake & Output 04/08/18 04/09/18 04/09/18 18:59 06:59 18:59 Intake Total 1100 Balance 1100 Weight (lbs) 74.843 kg 77.201 kg Intake: Intake, IV Amount 1000 Lactated Ringer 1,000 ml 1000 @ 145 mls/hr IV .Q6H54M [facility] Rx#:[id number] Other 100 Other: # Voids 3 # Bowel Movements 3 Stool Characteristics Soft Weight Source Estimated Bedscale Active Medications: Current Medications Acetaminophen (Tylenol) 650 mg PO Q6HR PRN PRN Reason: Pain (Mild) 1-3 Stop: 06/07/18 19:54 Amiodarone HCl (Cordarone) 200 mg PO DAILY [facility] Stop: 06/08/18 08:59 Last Admin: 04/09/18 08:45 Dose: 200 mg Aspirin (Aspirin Chewable) 81 mg PO DAILY [facility] Stop: 06/08/18 08:59 Last Admin: 04/09/18 08:46 Dose: 81 mg Calcium/Vitamin D (Oscal W/Vitamin D) 1 tab PO DAILY [facility] Stop: 06/08/18 08:59 Last Admin: 04/09/18 08:45 Dose: 1 tab Diltiazem HCl (Cardizem Cd) 240 mg PO DAILY [facility] Stop: 06/08/18 08:59 Last Admin: 04/09/18 08:46 Dose: 240 mg Famotidine (Pepcid) 20 mg PO HS [facility] Stop: 06/07/18 20:59 Last Admin: 04/08/18 21:55 Dose: 20 mg Lactated Ringer's (Lactated Ringer) 1,000 mls @ 145 mls/hr IV .Q6H54M [facility] Stop: 06/07/18 20:09 Last Admin: 04/09/18 05:52 Dose: 145 mls/hr Ceftriaxone Sodium 1 gm/ (Sodium Chloride) 50 mls @ 100 mls/hr IV Q24HR [facility] Stop: 06/07/18 19:44 Last Admin: 04/08/18 21:49 Dose: 100 mls/hr Losartan Potassium (Cozaar) 25 mg PO DAILY [facility] Stop: 06/08/18 08:59 Last Admin: 04/09/18 08:46 Dose: 25 mg Miscellaneous (Mirtazapine [Mirtazapine]) 7.5 mg PO HS [facility] Stop: 06/07/18 20:59 Morphine Sulfate (Morphine) 1 mg IV Q4HR PRN PRN Reason: Pain (Mild) 1-3 Stop: 06/07/18 17:30 Morphine Sulfate (Morphine) 2 mg IV Q4HR PRN PRN Reason: Pain (Moderate) 4-7 Stop: 06/07/18 17:31 Ondansetron HCl (Zofran) 4 mg IV Q6HR PRN PRN Reason: Vomiting Stop: 06/07/18 17:28 Rivastigmine (Exelon 9.5 Mg/24 Hr Tdm) 1 patch TD DAILY [facility] Stop: 06/08/18 08:59 Last Admin: 04/09/18 08:45 Dose: 1 patch Tamsulosin HCl (Flomax) 0.4 mg PO DAILY [facility] Stop: 06/08/18 08:59 Last Admin: 04/09/18 08:45 Dose: 0.4 mg Tramadol HCl (Ultram) 50 mg PO Q6H PRN PRN Reason: Pain (Moderate) 4-7 Stop: 06/07/18 20:12 Assessment/Plan - Problem List Patient Problems: All Active Problems WEAKNESS WITH NAUSEA/VOMITING (Acute)
--- NOTE | 2018-04-09 16:08 | Consultation ---
DATE OF CONSULTATION: HEMATOLOGY/ONCOLOGY CONSULTATION REFERRING PHYSICIAN: Dr. Handley. REASON FOR CONSULTATION: Prostate cancer and colon cancer. HISTORY OF PRESENT ILLNESS: The patient is an 87-year-old male who was admitted because of nausea, vomiting, abdominal distention, and pain. He was found to have dilatation of the small bowel and so suggestive of a bowel obstruction; therefore admitted. He was seen by the surgeon. Initially was on nasogastric tube suction and now is on clear liquid diet with no vomiting this morning. PAST MEDICAL HISTORY: History of colon cancer, status post resection, prostate cancer, and COPD. Apparently, he had a prostatectomy in the past. MEDICATIONS: Reviewed. SOCIAL HISTORY: Resident of a nursing facility. PHYSICAL EXAMINATION: GENERAL: The patient is awake, not in distress. VITAL SIGNS: Stable. HEENT: Atraumatic. NECK: Supple. CHEST: Good air entry. ABDOMEN: Soft, scar in the midline. Slight distention. No guarding or rebound. EXTREMITIES: Unremarkable. NERVOUS SYSTEM: No focal deficits. LABORATORY DATA: CBC: White count 5.9, hemoglobin 11.2, platelets 153. Chemistry: Creatinine 0.9. Liver functions, AST and ALT are normal. TSH is 0.7 and urine unremarkable. The small bowel series showed dilated small bowel with delayed transit time suggestive of partial small-bowel obstruction and CT scan of the abdomen and pelvis showed no evidence of retroperitoneal lymphadenopathy or other lesions suggestive of metastases in the bone or liver. ASSESSMENT: Colon cancer and prostate cancer, status post surgical resection in the past. I will obtain a tumor marker CEA and PSA. There is no evidence of metastasis based on the imaging studies. The bowel dilatation seems to be partial obstruction and that is clinically improving. If the PSA is elevated, further workup will be pursued. Thank you Dr. Handley for the opportunity to participate in the care of this interesting case. JOB# [id number]
[2018-04-09] MEDS: cefTRIAXone 1 GM in Sodium Chloride 0.9% 50 ML IV SCH (19:01)
--- NOTE | 2018-04-09 20:07 | Consultation ---
DATE OF CONSULTATION: 04/09/2018 HISTORY OF PRESENT ILLNESS: This 87-year-old male was seen and examined at the courtesy of Dr. Handley regarding cardiac evaluation. This patient was transferred here from [facility]. He was transferred with abdominal pain, nausea, vomiting. He was evaluated in the Emergency Room and admitted with a diagnosis of partial small-bowel obstruction. Since then the patient has seen by Dr. Kiran. The patient has a history of multiple problems. According to the information available, the patient has history of hypertension, history of cardiac arrhythmia, history of colon cancer for which he has had abdominal surgery, history of prostate cancer. The patient also has COPD. He was also found to have UTI. Not much history available from the patient. PAST MEDICAL HISTORY: As mentioned above. FAMILY HISTORY: Not much available from the patient. REVIEW OF SYSTEMS: Basically was very limited information. The patient did complain of abdominal pain, nausea, vomiting, but there is no chest pain, no shortness of breath, no history of palpitations, no history of PND, no history of orthopnea, no history of syncope. PHYSICAL EXAMINATION: VITAL SIGNS: Heart rate was 74, blood pressure was 126/60, temperature 97.2, respiration 18, O2 saturation 96. SKIN: Normal. HEAD: Normocephalic. EYES: Conjunctivae were pink. There is no icterus in the eyes. Pupils reactive to light. NECK: There was no increased jugular venous distention, no thyromegaly, no lymphadenopathy. Carotids equal both sides. CHEST: Bilaterally symmetrical and moved well with respiration. Respiratory movements equal both sides. Trachea is central. There is note to percussion. Breath sounds, few scattered rales. CARDIOVASCULAR SYSTEM: PMI not well localized. There is no pulsation or thrill. No parasternal heave. S1 normal, S2 physiologic. There was no S3, no rub. ABDOMEN: Soft. There was no rigidity, no guarding. Bowel sounds are present. There was no edema, no calf tenderness. Peripheral pulses diminished. LABORATORY DATA: EKG showed a possibly sinus rhythm even though there is artifact and P-waves are not very clearly visible, intraventricular conduction delay. Looking at the labs, TSH was 0.74. WBC was 5.9, hemoglobin 11.2, hematocrit 32.9, MCV 92.8, MCH 31.5, MCHC 34, platelet count was 153. Sodium 139, potassium 3.8, chloride 109, CO2 31.2, glucose 196, BUN 22, creatinine 0.9. Lipid profile showed cholesterol of 115, triglycerides 49, HDL 46, LDL 58. Amylase was 16, lipase 5. Urine shows bacteria 3+, magnesium was 2.2, lactic acid 0.97. TSH 1.79. A small bowel follow through showed delayed transit of contrast associated with dilated loops of small bowel, which eventually passed through the colon, changes associated with transient partial small-bowel obstruction cannot be excluded. Clinical correlation and followup recommended. CT of the abdomen and the pelvis showed mildly dilated small bowel and large bowel, nonspecific appearance, severe degenerative changes spine along with chronic changes without hips, arteriosclerotic vascular disease, slight haziness of the mesentery finding of questionable significance. RECENT MEDICATIONS: Include Cordarone 200 mg daily, aspirin 81 mg daily, diltiazem 240 mg daily, Pepcid 20 daily. The patient is on IV fluids, Flomax 0.4, Rocephin 1 gram IV daily, losartan potassium 25 mg p.o. daily. The rhythm histories have shown rhythm is ____. The baseline is not clear but there is either question of sinus rhythm or junctional rhythm. We will have to repeat the EKG. IMPRESSION: History of hypertension, history of cardiac arrhythmia, abdominal pain, partial small-bowel obstruction, status post colon cancer, status post abdominal surgery, status post prostate cancer, chronic obstructive pulmonary disease and history of urinary tract infection. PLAN: At present, the patient's vital signs are stable. Since the patient is getting Cordarone 200 mg daily, and Cardizem also 240, since there is a question of a junctional rhythm we will cut down the dose of Cordarone to 100 mg daily. We will also get a repeat EKG and echocardiogram in a.m., echocardiogram to evaluate left ventricular function and valvular structure. Thank you. We will follow with you as needed. [facility]# [id number]
--- NOTE | 2018-04-09 22:22 | Progress Notes ---
DATE: 04/09/2018 SUBJECTIVE: The patient was seen in his room. The patient is asleep but easily arousable, but unfortunately the patient is a poor historian, still has on a NGT connected to low intermittent suction. Small bowel x-ray done today with the impression of dilated loops of small bowel, but the contrast eventually passed through the colon, possible partial small-bowel obstruction. Otherwise, the patient appears to be in no acute distress. OBJECTIVE: VITAL SIGNS: Temperature 98.6, heart rate 72, respirations 19, blood pressure 124/68. HEENT: Head is atraumatic and normocephalic. Eyes: Bilateral conjunctivae are clear. Bilateral pupils are equally round and reactive. NECK: Supple. No JVD. CARDIOVASCULAR: S1 and S2, without murmur. PULMONARY: Clear to auscultation. GASTROINTESTINAL: Soft and nontender without guarding. Positive bowel sounds. MUSCULOSKELETAL: No clubbing. No cyanosis noted. ASSESSMENT: 1. Acute abdominal pain. 2. Partial small-bowel obstruction. 3. History of chronic obstructive pulmonary disease. 4. Osteoarthritis. PLAN: We will continue current treatment. We will continue NGT connected to low intermittent suction. We will follow up with the surgeon for appropriate management. Treatment plans were discussed with the patient's nurse. Treatment plans were discussed with Dr. Handley. JOB# [id number]
[2018-04-10 06:17] LABS: % BASOPHILS 0.3 % (0.0-2.0); % LYMPHOCYTES 25.7 % (20.0-50.0); % MONOCYTES 9.1 % (2.0-10.0); % NEUTROPHILS 56.9 % (40.0-80.0); EOSINOPHILE ABSOLUTE 0.5 Th/cmm (0.1-0.4); HEMATOCRIT 34.2 % (41.0-60); HEMOGLOBIN 11.6 gm/dL (12-16); LYMPHOCYTE ABSOLUTE 1.5 Th/cmm (1.5-3.0); MEAN CELL VOLUME 92.6 fl (80-99); MEAN CORPUSCULAR HEMOGLOBIN 31.3 pg (27.0-31.0); MEAN CORPUSCULAR HGB CONC 33.8 pg (28.0-36.0); MEAN PLATELET VOLUME 7.5 fl; MONOCYTE ABSOLUTE 0.5 Th/cmm (0.3-1.0); NEUTROPHILE ABSOLUTE 3.5 Th/cmm (1.8-8.0); PLATELET COUNT 154 Th/cmm (150-400); RED BLOOD COUNT 3.69 Mil/cmm (3.80-5.80); RED CELL DISTRIBUTION WIDTH 13.7 % (11.5-20.0)
[2018-04-10 06:33] LABS: ALKALINE PHOSPHATASE 50 U/L (34-104); ANION GAP 8.5 (7.0-16.0); BILIRUBIN,TOTAL 0.4 mg/dL (0.3-1.0); BUN - UREA NITROGEN 14 mg/dL (7-25); CALCIUM SERUM 8.6 mg/dL (8.6-10.3); CARBON DIOXIDE 26.3 mEq/L (21.0-31.0); CHLORIDE 107 mEq/L (98-107); CREATININE - SERUM 0.8 mg/dL (0.7-1.3); GLUCOSE 92 mg/dL (70-105); POTASSIUM SERUM 3.8 mEq/L (3.5-5.1); SGOT 15 U/L (13-39); SGPT/ALT 10 U/L (7-52); SODIUM SERUM 138 mEq/L (136-145); TOTAL PROTEIN,SERUM 5.9 gm/dL (6.0-8.3)
--- NOTE | 2018-04-10 08:23 | Internal Medicine Prog Note ---
Internal Medicine Subjective - Subjective Patient seen and examined:: chart reviewed Patient is:: awake, verbal, in bed, talking Patient Complaints of:: other (abd pain ) Per staff patient has:: no adverse event Internal Medicine Objective - Results Result Diagrams: 04/10/18 05:45 04/10/18 05:45 Recent Labs: Laboratory Last Values WBC 6.0 Th/cmm (4.8-10.8) 04/10/18 05:45 RBC 3.69 Mil/cmm (3.80-5.80) L 04/10/18 05:45 Hgb 11.6 gm/dL (12-16) L 04/10/18 05:45 Hct 34.2 % (41.0-60) L 04/10/18 05:45 MCV 92.6 fl (80-99) 04/10/18 05:45 MCH 31.3 pg (27.0-31.0) H 04/10/18 05:45 MCHC Differential 33.8 pg (28.0-36.0) 04/10/18 05:45 RDW 13.7 % (11.5-20.0) 04/10/18 05:45 Plt Count 154 Th/cmm (150-400) 04/10/18 05:45 MPV 7.5 fl 04/10/18 05:45 Neutrophils % 56.9 % (40.0-80.0) 04/10/18 05:45 Lymphocytes % 25.7 % (20.0-50.0) 04/10/18 05:45 Monocytes % 9.1 % (2.0-10.0) 04/10/18 05:45 Eosinophils % 8.0 % (0.0-5.0) H 04/10/18 05:45 Basophils % 0.3 % (0.0-2.0) 04/10/18 05:45 Sodium 138 mEq/L (136-145) 04/10/18 05:45 Potassium 3.8 mEq/L (3.5-5.1) 04/10/18 05:45 Chloride 107 mEq/L (98-107) 04/10/18 05:45 Carbon Dioxide 26.3 mEq/L (21.0-31.0) 04/10/18 05:45 Anion Gap 8.5 (7.0-16.0) 04/10/18 05:45 BUN 14 mg/dL (7-25) 04/10/18 05:45 Creatinine 0.8 mg/dL (0.7-1.3) 04/10/18 05:45 Est GFR ( Amer) TNP 04/10/18 05:45 Est GFR (Non-Af Amer) TNP 04/10/18 05:45 BUN/Creatinine Ratio 17.5 04/10/18 05:45 Glucose 92 mg/dL (70-105) 04/10/18 05:45 Whole Bld Lactic Acid 0.97 mmol/L (0.60-1.99) 04/08/18 15:10 Calcium 8.6 mg/dL (8.6-10.3) 04/10/18 05:45 Phosphorus 3.0 mg/dL (2.5-5.0) 04/08/18 15:10 Magnesium 2.2 mg/dL (1.9-2.7) 04/08/18 15:10 Total Bilirubin 0.4 mg/dL (0.3-1.0) 04/10/18 05:45 AST 15 U/L (13-39) 04/10/18 05:45 ALT 10 U/L (7-52) 04/10/18 05:45 Alkaline Phosphatase 50 U/L (34-104) 04/10/18 05:45 Total Protein 5.9 gm/dL (6.0-8.3) L 04/10/18 05:45 Albumin 3.0 gm/dL (4.2-5.5) L 04/10/18 05:45 Globulin 2.9 gm/dL 04/10/18 05:45 Albumin/Globulin Ratio 1.0 (1.0-1.8) 04/10/18 05:45 Triglycerides 49 mg/dL (<150) 04/09/18 05:30 Cholesterol 115 mg/dL (<200) 04/09/18 05:30 LDL Cholesterol Direct 58 mg/dL (75-193) L 04/09/18 05:30 HDL Cholesterol 46 mg/dL (23-92) 04/09/18 05:30 Amylase 16 U/L (29-103) L 04/09/18 05:30 Lipase 5 U/L (11-82) L 04/09/18 05:30 TSH 0.74 uIU/ml (0.34-5.60) 04/09/18 05:30 Urine Source CLEAN CATCH 04/08/18 16:25 Urine Color YELLOW 04/08/18 16:25 Urine Clarity CLEAR (CLEAR) 04/08/18 16:25 Urine pH 6.0 (4.6 - 8.0) 04/08/18 16:25 Ur Specific [place] 1.025 (1.005-1.030) 04/08/18 16:25 Urine Protein NEGATIVE mg/dL (NEGATIVE) 04/08/18 16:25 Urine Glucose (UA) NEGATIVE mg/dL (NEGATIVE) 04/08/18 16:25 Urine Ketones TRACE mg/dL (NEGATIVE) 04/08/18 16:25 Urine Blood NEGATIVE (NEGATIVE) 04/08/18 16:25 Urine Nitrate NEGATIVE (NEGATIVE) 04/08/18 16:25 Urine Bilirubin NEGATIVE (NEGATIVE) 04/08/18 16:25 Urine Urobilinogen 1.0 E.U./dL (0.2 - 1.0) 04/08/18 16:25 Ur Leukocyte Esterase SMALL (NEGATIVE) H 04/08/18 16:25 Urine RBC 0-2 /hpf (0-5) H 04/08/18 16:25 Urine WBC 6-10 /hpf (0-5) 04/08/18 16:25 Ur Epithelial Cells FEW /lpf (FEW) 04/08/18 16:25 Urine Bacteria 3+ /hpf (NONE SEEN) H 04/08/18 16:25 - Physical Exam Vitals and I&O: Vital Signs Temp 96.1 F 04/10/18 07:40 Pulse 65 04/10/18 07:40 Resp 17 04/10/18 07:40 BP 127/67 04/10/18 07:40 Pulse Ox 99 04/10/18 07:40 Intake & Output 04/09/18 04/10/18 04/10/18 19:59 06:59 18:59 Intake Total Output Total Balance Weight (lbs) Intake: Intake, IV Amount Lactated Ringer 1,000 ml @ 145 mls/hr IV .Q6H54M [facility] Rx#:[id number] cefTRIAXone 1 gm In Sodium Chloride 0.9% 50 ml @ 100 mls/hr IV Q24HR [facility] Rx#:[id number] Oral Output: Urine Other: # Bowel Movements Stool Characteristics Weight Source Active Medications: Current Medications Acetaminophen (Tylenol) 650 mg PO Q6HR PRN PRN Reason: Pain (Mild) 1-3 Stop: 06/07/18 19:54 Amiodarone HCl (Cordarone) 100 mg PO DAILY [facility] Stop: 06/09/18 08:59 Aspirin (Aspirin Chewable) 81 mg PO DAILY [facility] Stop: 06/08/18 08:59 Last Admin: 04/09/18 08:46 Dose: 81 mg Calcium/Vitamin D (Oscal W/Vitamin D) 1 tab PO DAILY [facility] Stop: 06/08/18 08:59 Last Admin: 04/09/18 08:45 Dose: 1 tab Diltiazem HCl (Cardizem Cd) 240 mg PO DAILY [facility] Stop: 06/08/18 08:59 Last Admin: 04/09/18 08:46 Dose: 240 mg Famotidine (Pepcid) 20 mg PO HS [facility] Stop: 06/07/18 20:59 Last Admin: 04/09/18 20:47 Dose: 20 mg Ceftriaxone Sodium 1 gm/ (Sodium Chloride) 50 mls @ 100 mls/hr IV Q24HR [facility] Stop: 06/07/18 19:44 Last Infusion: 04/09/18 19:31 Dose: Infused Lactated Ringer's (Lactated Ringer) 1,000 mls @ 30 mls/hr IV .Q24H [facility] Stop: 06/08/18 20:29 Last Admin: 04/09/18 20:49 Dose: 30 mls/hr Losartan Potassium (Cozaar) 25 mg PO DAILY [facility] Stop: 06/08/18 08:59 Last Admin: 04/09/18 08:46 Dose: 25 mg Miscellaneous (Mirtazapine [Mirtazapine]) 7.5 mg PO HS [facility] Stop: 06/07/18 20:59 Morphine Sulfate (Morphine) 1 mg IV Q4HR PRN PRN Reason: Pain (Mild) 1-3 Stop: 06/07/18 17:30 Morphine Sulfate (Morphine) 2 mg IV Q4HR PRN PRN Reason: Pain (Moderate) 4-7 Stop: 06/07/18 17:31 Ondansetron HCl (Zofran) 4 mg IV Q6HR PRN PRN Reason: Vomiting Stop: 06/07/18 17:28 Rivastigmine (Exelon 9.5 Mg/24 Hr Tdm) 1 patch TD DAILY [facility] Stop: 06/08/18 08:59 Last Admin: 04/09/18 08:45 Dose: 1 patch Tamsulosin HCl (Flomax) 0.4 mg PO DAILY [facility] Stop: 06/08/18 08:59 Last Admin: 04/09/18 08:45 Dose: 0.4 mg Tramadol HCl (Ultram) 50 mg PO Q6H PRN PRN Reason: Pain (Moderate) 4-7 Stop: 06/07/18 20:12 General: alert HEENT: NC/AT Neck: Supple Lungs: CTAB Cardiovascular: RRR Abdomen: soft, tender Extremities: clear, edema Neurological: no change, alert Internal Medicine Assmt/Plan - Assessment Assessment: abd pain partial small-bowel obstruction h/o copd oa h/o prostrate ca h/o uti - Plan Plan: as per order sheet Nutritional Asmnt/Malnutr-PDOC - Dietary Evaluation Malnutrition Findings (Please click <Entered> for more info): Nutritional Asmnt/Malnutrition Start: 04/09/18 11: 36 Text: Status: Complete Freq: Protocol: Document 04/09/18 11:37 LILIA (Rec: 04/09/18 11:41 LILIA [id number]) Nutritional Asmnt/Malnutrition Patient General Information Diagnosis partial SBO, UTI Pertinent Medical Hx/Surgical Hx COPD, prostate CA, colon CA s/ p surgical resection Subjective Information Pt asleep at time of visit Current Diet Order/ Nutrition Support NPO Pertinent Medications oscal with vit D, pepcid, LR @ 145ml/hr (3480ml/day, 45ml/kg) , morphine, zofran Pertinent Labs 04/09: Na 139, K 3.8, Cl 109, CO2 21.2, BUN 22, Cr 0.9, Ca 8 .4, glucose 96 Nutritional Hx/Data Height 1.78 m Height (Calculated Centimeters) 177.8 Current Weight (lbs) 77.111 kg Weight (Calculated Kilograms) 77.1 Weight (Calculated Grams) 02893.7 Body Mass Index (BMI) 24.3 Weight Status Approriate GI Symptoms GI Symptoms None Last BM none noted Cultural/Ethnic/Yazdanism Belief unknown Usual diet at home unknown Skin Integrity/Comment: kady score 15 Estimated Nutritional Goals BEE in Kcals: Using Current wt Calories/Kcals/Kg 30kcals/kg Kcals Calculated 2310kcals/day Protein: Using Current wt Protein g/kg/kg Protein Calculated 77g/day Fluid: ml 2310ml/day (1ml/kcal) Nutritional Problem 1. Problem Problem Inadequate enteral/parenteral/ PO diet related to Etiology increased needs as evidenced by Signs/Symptoms: NPO currently, for parital SBO Intervention/Recommendation Comments Recommend initiating PN Expected Outcomes/Goals Expected Outcomes/Goals Nutrition support to meet estimated needs.
--- NOTE | 2018-04-10 09:06 | General Progress Note ---
Subjective - Review of Systems Service Date: 04/10/18 Events since last encounter: having BM, tolerating diet, denies pain advance diet Objective - Results Result Diagrams: 04/10/18 05:45 04/10/18 05:45 Recent Labs: Laboratory Last Values WBC 6.0 Th/cmm (4.8-10.8) 04/10/18 05:45 RBC 3.69 Mil/cmm (3.80-5.80) L 04/10/18 05:45 Hgb 11.6 gm/dL (12-16) L 04/10/18 05:45 Hct 34.2 % (41.0-60) L 04/10/18 05:45 MCV 92.6 fl (80-99) 04/10/18 05:45 MCH 31.3 pg (27.0-31.0) H 04/10/18 05:45 MCHC Differential 33.8 pg (28.0-36.0) 04/10/18 05:45 RDW 13.7 % (11.5-20.0) 04/10/18 05:45 Plt Count 154 Th/cmm (150-400) 04/10/18 05:45 MPV 7.5 fl 04/10/18 05:45 Neutrophils % 56.9 % (40.0-80.0) 04/10/18 05:45 Lymphocytes % 25.7 % (20.0-50.0) 04/10/18 05:45 Monocytes % 9.1 % (2.0-10.0) 04/10/18 05:45 Eosinophils % 8.0 % (0.0-5.0) H 04/10/18 05:45 Basophils % 0.3 % (0.0-2.0) 04/10/18 05:45 Sodium 138 mEq/L (136-145) 04/10/18 05:45 Potassium 3.8 mEq/L (3.5-5.1) 04/10/18 05:45 Chloride 107 mEq/L (98-107) 04/10/18 05:45 Carbon Dioxide 26.3 mEq/L (21.0-31.0) 04/10/18 05:45 Anion Gap 8.5 (7.0-16.0) 04/10/18 05:45 BUN 14 mg/dL (7-25) 04/10/18 05:45 Creatinine 0.8 mg/dL (0.7-1.3) 04/10/18 05:45 Est GFR ( Amer) TNP 04/10/18 05:45 Est GFR (Non-Af Amer) TNP 04/10/18 05:45 BUN/Creatinine Ratio 17.5 04/10/18 05:45 Glucose 92 mg/dL (70-105) 04/10/18 05:45 Whole Bld Lactic Acid 0.97 mmol/L (0.60-1.99) 04/08/18 15:10 Calcium 8.6 mg/dL (8.6-10.3) 04/10/18 05:45 Phosphorus 3.0 mg/dL (2.5-5.0) 04/08/18 15:10 Magnesium 2.2 mg/dL (1.9-2.7) 04/08/18 15:10 Total Bilirubin 0.4 mg/dL (0.3-1.0) 04/10/18 05:45 AST 15 U/L (13-39) 04/10/18 05:45 ALT 10 U/L (7-52) 04/10/18 05:45 Alkaline Phosphatase 50 U/L (34-104) 04/10/18 05:45 Total Protein 5.9 gm/dL (6.0-8.3) L 04/10/18 05:45 Albumin 3.0 gm/dL (4.2-5.5) L 04/10/18 05:45 Globulin 2.9 gm/dL 04/10/18 05:45 Albumin/Globulin Ratio 1.0 (1.0-1.8) 04/10/18 05:45 Triglycerides 49 mg/dL (<150) 04/09/18 05:30 Cholesterol 115 mg/dL (<200) 04/09/18 05:30 LDL Cholesterol Direct 58 mg/dL (75-193) L 04/09/18 05:30 HDL Cholesterol 46 mg/dL (23-92) 04/09/18 05:30 Amylase 16 U/L (29-103) L 04/09/18 05:30 Lipase 5 U/L (11-82) L 04/09/18 05:30 TSH 0.74 uIU/ml (0.34-5.60) 04/09/18 05:30 Urine Source CLEAN CATCH 04/08/18 16:25 Urine Color YELLOW 04/08/18 16:25 Urine Clarity CLEAR (CLEAR) 04/08/18 16:25 Urine pH 6.0 (4.6 - 8.0) 04/08/18 16:25 Ur Specific [place] 1.025 (1.005-1.030) 04/08/18 16:25 Urine Protein NEGATIVE mg/dL (NEGATIVE) 04/08/18 16:25 Urine Glucose (UA) NEGATIVE mg/dL (NEGATIVE) 04/08/18 16:25 Urine Ketones TRACE mg/dL (NEGATIVE) 04/08/18 16:25 Urine Blood NEGATIVE (NEGATIVE) 04/08/18 16:25 Urine Nitrate NEGATIVE (NEGATIVE) 04/08/18 16:25 Urine Bilirubin NEGATIVE (NEGATIVE) 04/08/18 16:25 Urine Urobilinogen 1.0 E.U./dL (0.2 - 1.0) 04/08/18 16:25 Ur Leukocyte Esterase SMALL (NEGATIVE) H 04/08/18 16:25 Urine RBC 0-2 /hpf (0-5) H 04/08/18 16:25 Urine WBC 6-10 /hpf (0-5) 04/08/18 16:25 Ur Epithelial Cells FEW /lpf (FEW) 04/08/18 16:25 Urine Bacteria 3+ /hpf (NONE SEEN) H 04/08/18 16:25 - Physical Exam Vitals and I&O: Vital Signs Temp 96.1 F 04/10/18 07:40 Pulse 65 04/10/18 07:40 Resp 17 04/10/18 07:40 BP 127/67 04/10/18 07:40 Pulse Ox 99 04/10/18 07:40 Intake & Output 04/09/18 04/10/18 04/10/18 19:59 06:59 18:59 Intake Total Output Total Balance Weight (lbs) Intake: Intake, IV Amount Lactated Ringer 1,000 ml @ 145 mls/hr IV .Q6H54M [facility] Rx#:[id number] cefTRIAXone 1 gm In Sodium Chloride 0.9% 50 ml @ 100 mls/hr IV Q24HR [facility] Rx#:[id number] Oral Output: Urine Other: # Bowel Movements Stool Characteristics Weight Source Active Medications: Current Medications Acetaminophen (Tylenol) 650 mg PO Q6HR PRN PRN Reason: Pain (Mild) 1-3 Stop: 06/07/18 19:54 Amiodarone HCl (Cordarone) 100 mg PO DAILY [facility] Stop: 06/09/18 08:59 Aspirin (Aspirin Chewable) 81 mg PO DAILY [facility] Stop: 06/08/18 08:59 Last Admin: 04/09/18 08:46 Dose: 81 mg Calcium/Vitamin D (Oscal W/Vitamin D) 1 tab PO DAILY [facility] Stop: 06/08/18 08:59 Last Admin: 04/09/18 08:45 Dose: 1 tab Diltiazem HCl (Cardizem Cd) 240 mg PO DAILY [facility] Stop: 06/08/18 08:59 Last Admin: 04/09/18 08:46 Dose: 240 mg Famotidine (Pepcid) 20 mg PO HS [facility] Stop: 06/07/18 20:59 Last Admin: 04/09/18 20:47 Dose: 20 mg Ceftriaxone Sodium 1 gm/ (Sodium Chloride) 50 mls @ 100 mls/hr IV Q24HR [facility] Stop: 06/07/18 19:44 Last Infusion: 04/09/18 19:31 Dose: Infused Lactated Ringer's (Lactated Ringer) 1,000 mls @ 30 mls/hr IV .Q24H [facility] Stop: 06/08/18 20:29 Last Admin: 04/09/18 20:49 Dose: 30 mls/hr Losartan Potassium (Cozaar) 25 mg PO DAILY [facility] Stop: 06/08/18 08:59 Last Admin: 04/09/18 08:46 Dose: 25 mg Miscellaneous (Mirtazapine [Mirtazapine]) 7.5 mg PO HS [facility] Stop: 06/07/18 20:59 Morphine Sulfate (Morphine) 1 mg IV Q4HR PRN PRN Reason: Pain (Mild) 1-3 Stop: 06/07/18 17:30 Morphine Sulfate (Morphine) 2 mg IV Q4HR PRN PRN Reason: Pain (Moderate) 4-7 Stop: 06/07/18 17:31 Ondansetron HCl (Zofran) 4 mg IV Q6HR PRN PRN Reason: Vomiting Stop: 06/07/18 17:28 Rivastigmine (Exelon 9.5 Mg/24 Hr Tdm) 1 patch TD DAILY [facility] Stop: 06/08/18 08:59 Last Admin: 04/09/18 08:45 Dose: 1 patch Tamsulosin HCl (Flomax) 0.4 mg PO DAILY [facility] Stop: 06/08/18 08:59 Last Admin: 04/09/18 08:45 Dose: 0.4 mg Tramadol HCl (Ultram) 50 mg PO Q6H PRN PRN Reason: Pain (Moderate) 4-7 Stop: 06/07/18 20:12 Assessment/Plan - Problem List Patient Problems: All Active Problems WEAKNESS WITH NAUSEA/VOMITING (Acute) Nutritional Asmnt/Malnutr-PDOC - Dietary Evaluation Malnutrition Findings (Please click <Entered> for more info): Nutritional Asmnt/Malnutrition Start: 04/09/18 11: 36 Text: Status: Complete Freq: Protocol: Document 04/09/18 11:37 LILIA (Rec: 04/09/18 11:41 LILIA CHILO- [email or web address]) Nutritional Asmnt/Malnutrition Patient General Information Diagnosis partial SBO, UTI Pertinent Medical Hx/Surgical Hx COPD, prostate CA, colon CA s/ p surgical resection Subjective Information Pt asleep at time of visit Current Diet Order/ Nutrition Support NPO Pertinent Medications oscal with vit D, pepcid, LR @ 145ml/hr (3480ml/day, 45ml/kg) , morphine, zofran Pertinent Labs 04/09: Na 139, K 3.8, Cl 109, CO2 21.2, BUN 22, Cr 0.9, Ca 8 .4, glucose 96 Nutritional Hx/Data Height 1.78 m Height (Calculated Centimeters) 177.8 Current Weight (lbs) 77.111 kg Weight (Calculated Kilograms) 77.1 Weight (Calculated Grams) 61004.7 Body Mass Index (BMI) 24.3 Weight Status Approriate GI Symptoms GI Symptoms None Last BM none noted Cultural/Ethnic/Restorationist Belief unknown Usual diet at home unknown Skin Integrity/Comment: kady score 15 Estimated Nutritional Goals BEE in Kcals: Using Current wt Calories/Kcals/Kg 30kcals/kg Kcals Calculated 2310kcals/day Protein: Using Current wt Protein g/kg/kg Protein Calculated 77g/day Fluid: ml 2310ml/day (1ml/kcal) Nutritional Problem 1. Problem Problem Inadequate enteral/parenteral/ PO diet related to Etiology increased needs as evidenced by Signs/Symptoms: NPO currently, for parital SBO Intervention/Recommendation Comments Recommend initiating PN Expected Outcomes/Goals Expected Outcomes/Goals Nutrition support to meet estimated needs.
[2018-04-10] MEDS: Diltiazem CD 120 mg 24H PO SCH (09:23)
[2018-04-10] MEDS: Aspirin 81mg Chewable Tab PO SCH (09:24)
[2018-04-10] MEDS: Calcium Carb/Vit D 500 mg/200 U Tab PO SCH (09:24)
[2018-04-10] MEDS: Multivitamin w/ Minerals Tab PO SCH (09:25)
[2018-04-10] MEDS: Rivastigmine 9.5 mg/24 hr Tdm TD SCH (09:25)
--- NOTE | 2018-04-10 13:03 | Consultation ---
DATE OF CONSULTATION: 04/08/2018 SURGICAL CONSULTATION REFERRING PHYSICIAN: Dr. Handley. REASON FOR CONSULTATION: Abdominal pain. Thank you for referring this patient to me. HISTORY OF PRESENT ILLNESS: This is an 87-year-old male admitted because of abdominal pain, nausea and vomiting. This patient came to the Emergency Room and because CT scan showed possible bowel obstruction, he was admitted. PAST MEDICAL HISTORY: Includes prostatic CA, colon CA, post-surgical resections. LABORATORY STUDIES: Show CBC to be essentially normal. The chemistry likewise is within normal limits. CT scan of the abdomen showed dilated small bowel, raising the question of bowel obstruction. There are also severe degenerative changes of the spine and hips. PHYSICAL EXAMINATION: The patient speaks Cypriot and appears to be alert. He is, however, unable to give any meaningful information about his surgeries. Abdomen, however, is flat and soft. There is moderate tenderness in the lower abdomen. The scar from previous surgery is noted at the midline. PLAN: Small bowel series will be ordered. In the meantime, keep the patient n.p.o. We will follow with you. JOB# [id number]
--- NOTE | 2018-04-10 17:07 | Consultation ---
Consult Note - Consult Note Service Date: 04/10/18 Referring Physician: Adilia Handley Consult Note: PHYSICIAN Consultation Note: Date of Admission: 04/08/18 Purpose of Consultation: UTI. Chief Complaint: Patient HARDEEP GOLD [facility] with PARTIAL SBO, UTI. History of Present Illness: 87 mL with past medical history of prostate cancer, colon cancer, surgical resection brought in from [facility] nursing facility for increasing nausea, vomiting and abdominal pain. Patient found to be a subacute intestinal obstruction. On initial evaluation, his temperature was 98.2F and WBC count was 8200. Urinalysis showed the bacteriuria and mild pyuria. Antibiotic-polo patient was started on Rocephin. With conservative management, his abdomen pain has resolved nausea and vomiting has resolved. ID consult was called for further antibiotic management to treat UTI. Past Medical History: BPH, colon cancers, status post ankle surgery and resection of the colon cancer, prostate cancer. Allergies Allergy/AdvReac Type Severity Reaction Status Date / Time No Known Allergies Allergy Verified 06/29/17 19:59 Vital Signs Temp 97.1 F 04/10/18 15:41 Pulse 74 04/10/18 15:41 Resp 18 04/10/18 16:00 BP 122/73 04/10/18 15:41 Pulse Ox 99 04/10/18 15:41 Intake & Output 04/09/18 04/10/18 04/10/18 19:59 06:59 18:59 Intake Total Output Total Balance Weight (lbs) Intake: Intake, IV Amount Lactated Ringer 1,000 ml @ 145 mls/hr IV .Q6H54M [facility] Rx#:[id number] cefTRIAXone 1 gm In Sodium Chloride 0.9% 50 ml @ 100 mls/hr IV Q24HR [facility] Rx#:[id number] Oral Output: Urine Other: # Bowel Movements Stool Characteristics Weight Source Laboratory Results - last 24 hr 04/10/18 04/10/18 05:45 05:45 WBC 6.0 RBC 3.69 L Hgb 11.6 L Hct 34.2 L MCV 92.6 MCH 31.3 H MCHC Differential 33.8 RDW 13.7 Plt Count 154 MPV 7.5 Neutrophils % 56.9 Lymphocytes % 25.7 Monocytes % 9.1 Eosinophils % 8.0 H Basophils % 0.3 Sodium 138 Potassium 3.8 Chloride 107 Carbon Dioxide 26.3 Anion Gap 8.5 BUN 14 Creatinine 0.8 Est GFR ( Amer) TNP Est GFR (Non-Af Amer) TNP BUN/Creatinine Ratio 17.5 Glucose 92 Calcium 8.6 Total Bilirubin 0.4 AST 15 ALT 10 Alkaline Phosphatase 50 Total Protein 5.9 L Albumin 3.0 L Globulin 2.9 Albumin/Globulin Ratio 1.0 Home Medication Medication Instructions Recorded Type Acetaminophen [Tylenol] 650 mg PO Q6HR PRN 06/29/17 History Amiodarone [Cordarone] 200 mg PO DAILY 06/29/17 History Aspirin 81 mg PO DAILY 06/29/17 History Diltiazem HCl [Cardizem LA] 240 mg PO DAILY 06/29/17 History Famotidine 20 mg PO HS 06/29/17 History Losartan Potassium [Cozaar] 25 mg PO DAILY 06/29/17 History Tamsulosin [Flomax] 0.4 mg PO DAILY 06/29/17 History Tramadol HCl [Ultram] 50 mg PO Q6H PRN 06/29/17 History Calcium Carbonate/Vitamin D3 1 each PO DAILY 04/08/18 History [Calcium 600-Vit D3 400 Caplet] Mirtazapine 7.5 mg PO HS 04/08/18 History Multivitamin w/ Minerals 1 tab PO DAILY 04/08/18 History [Theragran M] Rivastigmine [Exelon 9.5 mg/24 hr 1 patch TP DAILY 04/08/18 History Tdm] Current Medications Generic Name Dose Route Start Last Admin Trade Name Freq PRN Reason Stop Dose Admin Acetaminophen 650 mg 04/08/18 19:55 Tylenol PO 06/07/18 19:54 Q6HR PRN Pain (Mild) 1-3 Amiodarone HCl 100 mg 04/10/18 09:00 04/10/18 09:24 Cordarone PO 06/09/18 08:59 100 mg DAILY [facility] Administration Aspirin 81 mg 04/09/18 09:00 04/10/18 09:24 Aspirin Chewable PO 06/08/18 08:59 81 mg DAILY [facility] Administration Calcium/Vitamin D 1 tab 04/09/18 09:00 04/10/18 09:24 Oscal W/Vitamin D PO 06/08/18 08:59 1 tab DAILY [facility] Administration Diltiazem HCl 240 mg 04/09/18 09:00 04/10/18 09:23 Cardizem Cd PO 06/08/18 08:59 240 mg DAILY [facility] Administration Famotidine 20 mg 04/08/18 21:00 04/09/18 20:47 Pepcid PO 06/07/18 20:59 20 mg HS [facility] Administration Ceftriaxone Sodium 1 gm/ 50 mls @ 100 mls/hr 04/08/18 19:45 04/09/18 19:31 Sodium Chloride IV 06/07/18 19:44 Infused Q24HR [facility] Infusion Lactated Ringer's 1,000 mls @ 30 mls/hr 04/09/18 20:30 04/09/18 20:49 Lactated Ringer IV 06/08/18 20:29 30 mls/hr .Q24H [facility] Administration Losartan Potassium 25 mg 04/09/18 09:00 04/10/18 09:24 Cozaar PO 06/08/18 08:59 25 mg DAILY [facility] Administration Miscellaneous 7.5 mg 04/08/18 21:00 Mirtazapine [Mirtazapine] PO 06/07/18 20:59 HS [facility] Morphine Sulfate 1 mg 04/08/18 17:31 Morphine IV 06/07/18 17:30 Q4HR PRN Pain (Mild) 1-3 Morphine Sulfate 2 mg 04/08/18 17:32 Morphine IV 06/07/18 17:31 Q4HR PRN Pain (Moderate) 4-7 Ondansetron HCl 4 mg 04/08/18 17:31 Zofran IV 06/07/18 17:28 Q6HR PRN Vomiting Rivastigmine 1 patch 04/09/18 09:00 04/10/18 09:25 Exelon 9.5 Mg/24 Hr Tdm TD 06/08/18 08:59 1 patch DAILY [facility] Administration Tamsulosin HCl 0.4 mg 04/09/18 09:00 04/10/18 09:24 Flomax PO 06/08/18 08:59 0.4 mg DAILY [facility] Administration Tramadol HCl 50 mg 04/08/18 20:13 Ultram PO 06/07/18 20:12 Q6H PRN Pain (Moderate) 4-7 Review of Systems: A 12 point ROS was reviewed with the pertinent positive and negatives noted in the HPI. General/Constitutional: No fever, No chills, No weight loss, No weakness, No diaphoresis, No edema, No loss of appetite Skin: No skin lesions, No rash, No bruising Head: No headache, No light-headedness Eyes: No loss of vision, No pain, No diplopia ENT: No earache, No nasal drainage, No sore throat, No tinnitus Neck: No neck pain, No swelling, No thyromegaly, No stiffness, No mass noted Cardio Vascular: No chest pain, No palpitations, No PND, No orthopnea, No edema Pulmonary: No SOB, No cough, No sputum, No wheezing GI: Nausea, Vomiting, and abdominal pain has resolved. No diarrhea, Pain, No melena, No hematochezia, No constipation, No hematemesis G/U: No dysuria, No frequency, No hematuria Musculoskeletal: No bone or joint pain, No back pain, No muscle pain Endocrine: No polyuria, No polydipsia Psychiatric: No prior psych history, No depression, No anxiety, No suicidal ideation Hematopoietic: No bruising, No lymphadenopathy Allergic/Immuno: No urticaria, No angioedema Neurological: No syncope, No focal symptoms, No weakness, No paresthesia, No headache, No seizure, No dizziness, No confusion, No vertigo Social History Smoking Status Unknown if ever smoked Family Medical History Unknown. Physical Exam: General: Comfortable, in well-nourished well-developed not in acute distress. HEENT: Head: Normocytic, atraumatic oral cavity: Moist, pink tongue eyes: Pallor is present. No icterus. Pupil PERRLA. EOMI. Face is symmetrical. Neck: Supple, no JVD. No use of accessory neck muscles. Cardio: S1 and S2 within normal limits regular rhythm no murmur no gallop. Respiratory: Vesicular breath sound. No crackles. No wheezing. Abdominal: Soft, nontender, nondistended, bowel sounds present. Patient has made about surgical scars without any opening or any abnormalities. Genital/Urinary: Deferred. Extremities: No cyanosis, no clubbing, no edema. Pulses are palpable in all 4 limbs. Neurological: Alert, awake, oriented 3. Communicates well. Assessment: 1. UTI. 2. Small bowel obstruction, resolved. 3. BPH, last prostate CA. 4. History of colonic carcinoma, status post resection of the abdominal cavity. Plan: Continue Rocephin at this time. May change antibiotic to Bactrim single straight by mouth twice a day for 5 days total. On May give Bactrim DS 1 by mouth daily for 5 days. Thank you, Dr. Handley, for involving me in taking care of this patient. Perry Beckman Devesh N., M.D. [id number]
[2018-04-10] MEDS: cefTRIAXone 1 GM in Sodium Chloride 0.9% 50 ML IV SCH (18:45)
[2018-04-11] MEDS: Lactated Ringer 1,000 ML IV SCH (03:36)
[2018-04-11 08:42] LABS: BUN - UREA NITROGEN 9 mg/dL (7-25); CALCIUM SERUM 8.8 mg/dL (8.6-10.3); CARBON DIOXIDE 24.9 mEq/L (21.0-31.0); CHLORIDE 107 mEq/L (98-107); CREATININE - SERUM 0.8 mg/dL (0.7-1.3); GLUCOSE 101 mg/dL (70-105); POTASSIUM SERUM 3.9 mEq/L (3.5-5.1); SODIUM SERUM 139 mEq/L (136-145)
[2018-04-11] MEDS: Aspirin 81mg Chewable Tab PO SCH (09:31)
[2018-04-11] MEDS: Diltiazem CD 120 mg 24H PO SCH (09:31)
[2018-04-11] MEDS: Multivitamin w/ Minerals Tab PO SCH (09:31)
[2018-04-11] MEDS: Calcium Carb/Vit D 500 mg/200 U Tab PO SCH (09:31)
[2018-04-11] MEDS: Rivastigmine 9.5 mg/24 hr Tdm TD SCH (09:33)
[2018-04-11 09:36] LABS: % BASOPHILS 0.3 % (0.0-2.0); % EOSINOPHILS 2.4 % (0.0-5.0); % LYMPHOCYTES 20.2 % (20.0-50.0); % NEUTROPHILS 70.1 % (40.0-80.0); EOSINOPHILE ABSOLUTE 0.1 Th/cmm (0.1-0.4); HEMATOCRIT 35.4 % (41.0-60); LYMPHOCYTE ABSOLUTE 1.2 Th/cmm (1.5-3.0); MEAN CELL VOLUME 92.8 fl (80-99); MEAN CORPUSCULAR HEMOGLOBIN 31.6 pg (27.0-31.0); MEAN PLATELET VOLUME 7.8 fl; MONOCYTE ABSOLUTE 0.4 Th/cmm (0.3-1.0); NEUTROPHILE ABSOLUTE 4.2 Th/cmm (1.8-8.0); PLATELET COUNT 180 Th/cmm (150-400); RED BLOOD COUNT 3.81 Mil/cmm (3.80-5.80); RED CELL DISTRIBUTION WIDTH 13.4 % (11.5-20.0); WHITE BLOOD COUNT 5.9 Th/cmm (4.8-10.8)
--- NOTE | 2018-04-11 13:37 | Infectious Disease Prog Note ---
Infectious Disease Subjective - Review of Systems Service Date: 04/11/18 Subjective: There is no new change, no fever. Infectious Disease Objective - Results Result Diagrams: 04/11/18 08:18 04/11/18 08:18 Recent Labs: Laboratory Last Values WBC 5.9 Th/cmm (4.8-10.8) 04/11/18 08:18 RBC 3.81 Mil/cmm (3.80-5.80) 04/11/18 08:18 Hgb 12.0 gm/dL (12-16) 04/11/18 08:18 Hct 35.4 % (41.0-60) L 04/11/18 08:18 MCV 92.8 fl (80-99) 04/11/18 08:18 MCH 31.6 pg (27.0-31.0) H 04/11/18 08:18 MCHC Differential 34.0 pg (28.0-36.0) 04/11/18 08:18 RDW 13.4 % (11.5-20.0) 04/11/18 08:18 Plt Count 180 Th/cmm (150-400) 04/11/18 08:18 MPV 7.8 fl 04/11/18 08:18 Neutrophils % 70.1 % (40.0-80.0) 04/11/18 08:18 Lymphocytes % 20.2 % (20.0-50.0) 04/11/18 08:18 Monocytes % 7.0 % (2.0-10.0) 04/11/18 08:18 Eosinophils % 2.4 % (0.0-5.0) 04/11/18 08:18 Basophils % 0.3 % (0.0-2.0) 04/11/18 08:18 Sodium 139 mEq/L (136-145) 04/11/18 08:18 Potassium 3.9 mEq/L (3.5-5.1) 04/11/18 08:18 Chloride 107 mEq/L (98-107) 04/11/18 08:18 Carbon Dioxide 24.9 mEq/L (21.0-31.0) 04/11/18 08:18 Anion Gap 11.0 (7.0-16.0) 04/11/18 08:18 BUN 9 mg/dL (7-25) 04/11/18 08:18 Creatinine 0.8 mg/dL (0.7-1.3) 04/11/18 08:18 Est GFR ( Amer) TNP 04/11/18 08:18 Est GFR (Non-Af Amer) TNP 04/11/18 08:18 BUN/Creatinine Ratio 11.3 04/11/18 08:18 Glucose 101 mg/dL (70-105) 04/11/18 08:18 Whole Bld Lactic Acid 0.97 mmol/L (0.60-1.99) 04/08/18 15:10 Calcium 8.8 mg/dL (8.6-10.3) 04/11/18 08:18 Phosphorus 3.0 mg/dL (2.5-5.0) 04/08/18 15:10 Magnesium 2.2 mg/dL (1.9-2.7) 04/08/18 15:10 Total Bilirubin 0.4 mg/dL (0.3-1.0) 04/10/18 05:45 AST 15 U/L (13-39) 04/10/18 05:45 ALT 10 U/L (7-52) 04/10/18 05:45 Alkaline Phosphatase 50 U/L (34-104) 04/10/18 05:45 Total Protein 5.9 gm/dL (6.0-8.3) L 04/10/18 05:45 Albumin 3.0 gm/dL (4.2-5.5) L 04/10/18 05:45 Globulin 2.9 gm/dL 04/10/18 05:45 Albumin/Globulin Ratio 1.0 (1.0-1.8) 04/10/18 05:45 Triglycerides 49 mg/dL (<150) 04/09/18 05:30 Cholesterol 115 mg/dL (<200) 04/09/18 05:30 LDL Cholesterol Direct 58 mg/dL (75-193) L 04/09/18 05:30 HDL Cholesterol 46 mg/dL (23-92) 04/09/18 05:30 Amylase 16 U/L (29-103) L 04/09/18 05:30 Lipase 5 U/L (11-82) L 04/09/18 05:30 TSH 0.74 uIU/ml (0.34-5.60) 04/09/18 05:30 Urine Source CLEAN CATCH 04/08/18 16:25 Urine Color YELLOW 04/08/18 16:25 Urine Clarity CLEAR (CLEAR) 04/08/18 16:25 Urine pH 6.0 (4.6 - 8.0) 04/08/18 16:25 Ur Specific [place] 1.025 (1.005-1.030) 04/08/18 16:25 Urine Protein NEGATIVE mg/dL (NEGATIVE) 04/08/18 16:25 Urine Glucose (UA) NEGATIVE mg/dL (NEGATIVE) 04/08/18 16:25 Urine Ketones TRACE mg/dL (NEGATIVE) 04/08/18 16:25 Urine Blood NEGATIVE (NEGATIVE) 04/08/18 16:25 Urine Nitrate NEGATIVE (NEGATIVE) 04/08/18 16:25 Urine Bilirubin NEGATIVE (NEGATIVE) 04/08/18 16:25 Urine Urobilinogen 1.0 E.U./dL (0.2 - 1.0) 04/08/18 16:25 Ur Leukocyte Esterase SMALL (NEGATIVE) H 04/08/18 16:25 Urine RBC 0-2 /hpf (0-5) H 04/08/18 16:25 Urine WBC 6-10 /hpf (0-5) 04/08/18 16:25 Ur Epithelial Cells FEW /lpf (FEW) 04/08/18 16:25 Urine Bacteria 3+ /hpf (NONE SEEN) H 04/08/18 16:25 - Physical Exam Vitals and I&O: Vital Signs Temp 98.2 F 04/11/18 12:05 Pulse 74 04/11/18 12:05 Resp 18 04/11/18 12:05 BP 131/79 04/11/18 12:05 Pulse Ox 97 04/11/18 12:05 Intake & Output 04/10/18 04/11/18 04/11/18 18:59 06:59 18:59 Intake Total 520 1325.5 50 Output Total 500 700 Balance 520 825.5 -650 Weight (lbs) 81.193 kg 81.102 kg 81.102 kg Intake: Intake, IV Amount 1075.5 Lactated Ringer 1,000 ml 1025.5 @ 30 mls/hr IV .Q24H [facility] Rx#:[id number] cefTRIAXone 1 gm In 50 Sodium Chloride 0.9% 50 ml @ 100 mls/hr IV Q24HR [facility] Rx#:[id number] Oral 520 250 50 Output: Urine 500 700 Other: # Voids 4 2 3 # Bowel Movements 2 1 Stool Characteristics Soft Weight Source Bedscale Bedscale Bedscale Active Medications: Current Medications Acetaminophen (Tylenol) 650 mg PO Q6HR PRN PRN Reason: Pain (Mild) 1-3 Stop: 06/07/18 19:54 Amiodarone HCl (Cordarone) 100 mg PO DAILY [facility] Stop: 06/09/18 08:59 Last Admin: 04/11/18 09:31 Dose: 100 mg Aspirin (Aspirin Chewable) 81 mg PO DAILY [facility] Stop: 06/08/18 08:59 Last Admin: 04/11/18 09:31 Dose: 81 mg Calcium/Vitamin D (Oscal W/Vitamin D) 1 tab PO DAILY [facility] Stop: 06/08/18 08:59 Last Admin: 04/11/18 09:31 Dose: 1 tab Diltiazem HCl (Cardizem Cd) 240 mg PO DAILY [facility] Stop: 06/08/18 08:59 Last Admin: 04/11/18 09:31 Dose: 240 mg Famotidine (Pepcid) 20 mg PO HS [facility] Stop: 06/07/18 20:59 Last Admin: 04/10/18 20:46 Dose: 20 mg Ceftriaxone Sodium 1 gm/ (Sodium Chloride) 50 mls @ 100 mls/hr IV Q24HR [facility] Stop: 06/07/18 19:44 Last Infusion: 04/10/18 19:13 Dose: Infused Lactated Ringer's (Lactated Ringer) 1,000 mls @ 30 mls/hr IV .Q24H [facility] Stop: 06/08/18 20:29 Last Infusion: 04/11/18 06:00 Dose: 30 mls/hr Losartan Potassium (Cozaar) 25 mg PO DAILY [facility] Stop: 06/08/18 08:59 Last Admin: 04/11/18 09:31 Dose: 25 mg Mirtazapine (Remeron) 7.5 mg PO HS [facility] Stop: 06/07/18 20:59 Morphine Sulfate (Morphine) 1 mg IV Q4HR PRN PRN Reason: Pain (Mild) 1-3 Stop: 06/07/18 17:30 Morphine Sulfate (Morphine) 2 mg IV Q4HR PRN PRN Reason: Pain (Moderate) 4-7 Stop: 06/07/18 17:31 Ondansetron HCl (Zofran) 4 mg IV Q6HR PRN PRN Reason: Vomiting Stop: 06/07/18 17:28 Rivastigmine (Exelon 9.5 Mg/24 Hr Tdm) 1 patch TD DAILY [facility] Stop: 06/08/18 08:59 Last Admin: 04/11/18 09:33 Dose: 1 patch Tamsulosin HCl (Flomax) 0.4 mg PO DAILY [facility] Stop: 06/08/18 08:59 Last Admin: 04/11/18 09:31 Dose: 0.4 mg Tramadol HCl (Ultram) 50 mg PO Q6H PRN PRN Reason: Pain (Moderate) 4-7 Stop: 06/07/18 20:12 General: no acute distress, well developed, well nourished HEENT: atraumatic, normocephalic, PERRLA, EOMI Neck: supple, no thyromegaly, no lymphadenopathy Cardiovascular: S1S2, regular Lungs: clear to auscultation bilaterally, clear to percussion Abdomen: soft, no tender, no distended Extremities: no cyanosis, no clubbing, no edema Neurological: awake, alert, oriented Skin: intact Infectious Disease Assmt/Plan - Problem List Patient Problems: All Active Problems WEAKNESS WITH NAUSEA/VOMITING (Acute) - Assessment Assessment: 1. UTI. 2. Small bowel obstruction, resolved. 3. BPH, last prostate CA. 4. History of colonic carcinoma, status post resection of the abdominal cavity. - Plan Plan: Continue Rocephin at this time. May change antibiotic to Bactrim single straight by mouth twice a day for 5 days total. On May give Bactrim DS 1 by mouth daily for 5 days. Nutritional Asmnt/Malnutr-PDOC - Dietary Evaluation Malnutrition Findings (Please click <Entered> for more info): Nutritional Asmnt/Malnutrition Start: 04/09/18 11: 36 Text: Status: Complete Freq: Protocol: Document 04/09/18 11:37 LILIA (Rec: 04/09/18 11:41 LILIA [id number]) Nutritional Asmnt/Malnutrition Patient General Information Diagnosis partial SBO, UTI Pertinent Medical Hx/Surgical Hx COPD, prostate CA, colon CA s/ p surgical resection Subjective Information Pt asleep at time of visit Current Diet Order/ Nutrition Support NPO Pertinent Medications oscal with vit D, pepcid, LR @ 145ml/hr (3480ml/day, 45ml/kg) , morphine, zofran Pertinent Labs 04/09: Na 139, K 3.8, Cl 109, CO2 21.2, BUN 22, Cr 0.9, Ca 8 .4, glucose 96 Nutritional Hx/Data Height 1.78 m Height (Calculated Centimeters) 177.8 Current Weight (lbs) 77.111 kg Weight (Calculated Kilograms) 77.1 Weight (Calculated Grams) 78250.7 Body Mass Index (BMI) 24.3 Weight Status Approriate GI Symptoms GI Symptoms None Last BM none noted Cultural/Ethnic/Adventism Belief unknown Usual diet at home unknown Skin Integrity/Comment: kady score 15 Estimated Nutritional Goals BEE in Kcals: Using Current wt Calories/Kcals/Kg 30kcals/kg Kcals Calculated 2310kcals/day Protein: Using Current wt Protein g/kg/kg Protein Calculated 77g/day Fluid: ml 2310ml/day (1ml/kcal) Nutritional Problem 1. Problem Problem Inadequate enteral/parenteral/ PO diet related to Etiology increased needs as evidenced by Signs/Symptoms: NPO currently, for parital SBO Intervention/Recommendation Comments Recommend initiating PN Expected Outcomes/Goals Expected Outcomes/Goals Nutrition support to meet estimated needs.
--- NOTE | 2018-04-11 14:00 | Cardiology ---
04/10/2018 PATIENT OF: Dr. Handley 04/10/2018. M-MODE ECHOCARDIOGRAM: Mitral valve, anterior leaflet of mitral valve shows normal excursion, EF velocity. Posterior leaflet of the mitral valve shows normal excursion. Left ventricular posterior wall shows increased thickness, normal excursion. Interventricular septum shows increased thickness, normal excursion, hypertrophy of the left ventricle, ejection fraction 61%. Left atrium normal. Aortic root shows normal dimension, normal excursion of aortic leaflets. CONCLUSION: Hypertrophy of the left ventricle, ejection fraction 61%. 2D ECHO: Long axis view showed normal sized left ventricle with hypertrophy of the left ventricle. Left atrium normal. Aortic root shows normal dimension, normal excursion of aortic leaflets. Short axis view of mitral valve normal. Short axis view of aortic valve normal. Apical four chamber view showed normal sized left ventricle with hypertrophy of the left ventricle. Left atrium normal. Right ventricular cavity, right atrium normal, no pericardial effusion. CONCLUSION: Hypertrophy of the left ventricle, ejection fraction 61%. Doppler study shows moderate mitral regurgitation, mild tricuspid regurgitation. CONCLUSION: Moderate mitral regurgitation, mild tricuspid regurgitation, trace aortic regurgitation, ejection fraction 60%, hypertrophy of the left ventricle. JOB# [id number]
== END 2018-04-11 13:45 | DRG 389 ==
LOC: ER 14:59 → TELE 17:45 → MSI 04-11 09:54
PROVIDERS: ADMIT Internal Medicine; ATTEND Internal Medicine
DX: K56.600 Partial intestinal obstruction, unspecified as to cause (principal); N39.0 Urinary tract infection, site not specified; J44.9 Chronic obstructive pulmonary disease, unspecified; Z66 Do not resuscitate; M19.90 Unspecified osteoarthritis, unspecified site; N40.0 Benign prostatic hyperplasia without lower urinary tract symptoms; Z85.46 Personal history of malignant neoplasm of prostate; Z85.038 Personal history of other malignant neoplasm of large intestine
CPT/HCPCS: 36415-UA; 71045-TC; 74250-TC; 80048-TC; 80053-TC; 80061-TC; 81001-TC; 82150-TC; 82378-90; 83605; 83690-TC; 83735-TC; 84100-TC; 84153-90; 84443-TC; 85025-TC; 87086-90; 93005; 96375; J0696; J2405; J2543; Z7610

== ENCOUNTER 2018-06-06 21:52 | Inpatient (IN) | payer MEDICARE, MEDICAID ==
[2018-06-06] MEDS ORDERED: Sodium Chloride 0.9% 1,000 ML IV ONE (22:35)
--- NOTE | 2018-06-06 22:42 | ED Physician Chart ---
ED Chief Complaint/HPI - Patient Information Date Seen:: 06/06/18 Time Seen:: 22:30 Chief Complaint:: coffee ground emesis History of Present Illness:: location: general quality: coffee ground emesis severity: moderate duration; one day context: SNF patient had 2 episodes of coffee ground emesis, chart check shows patient takes aspirin daily. no pain complaint. no diarrhea, no CP, no SOB reported. facility RNs reported to Dr. Handley who advised send to ER for medical evaluation. medics report stable vital signs during transport. no hypotension. on arrival pt with stable vitals signs. no hematemesis in ER. mod factors: none assoc s/s; none hx from medics, facility RN, Dr. Handley Allergies:: Allergies Allergy/AdvReac Type Severity Reaction Status Date / Time No Known Allergies Allergy Verified 06/29/17 19:59 Historian:: EMS Review:: Nurse's Note Reviewed, EMS run form Reviewed ED Review of Systems - Review of Systems General/Constitutional: No fever, No diaphoresis Skin: No rash Eyes: No diplopia ENT: No nasal drainage Neck: No swelling Cardio Vascular: No edema Pulmonary: No cough, No sputum, No wheezing GI: Vomiting, No diarrhea G/U: No hematuria Endocrine: No polydipsia Hematopoietic: No lymphadenopathy Allergic/Immuno: No angioedema Neurological: No syncope, No seizure ED Past Medical History - Past Medical History Past Medical History: CVA/TIA, Other (left sided weakness, colon ca, opiate use , prostate ca, atrial fibrillation) Family History: None Social History: Non Smoker, No Alcohol, No Drug Use, Single, Care Facility ( [facility], non ambulatory wheelchair only) Surgical History: other (colon ca surgery) Medication: Reviewed Family Medical History - Family Member Mother History Unknown: Yes ED Physical Exam - Physical Examination General/Constitutional: Awake, Well-developed, well-nourished, Alert, No distress, Non-toxic appearing, Ambulatory Head: Atraumatic Eyes: Lids, conjuctiva normal, PERRL, EOMI Skin: Nl inspection, No skin lesions, Well hydrated ENMT: External ears, nose nl, Oropharynx nl Neck: Nontender, No nuchal rigidity Respiratory: Nl effort/Exclusion, Clear to Auscultation, No Wheeze/Rhonchi/Rales Cardio Vascular: RRR, No murmur, gallop, rubs, NL S1 S2 GI: No tenderness/rebounding/guarding, Normal BS's, Nondistended : No CVA tenderness Extremities: No tenderness or effusion Neuro/Psych: Normal sensory exam, No focal deficits (left sided weakness) Misc: Normal back ED Assessment - Assessment General Assessment: pt stable while in ER ED Septic Shock - . Is Septic Shock (SBP<90, OR Lactate>4 mmol\L) present?: No - <6hrs of presentation: Assessment of Lungs: Lung CTA bilateral Assessment of Heart: RRR Capillary refill evaluation: Capillary refill < 2 secs Skin Exam: Warm, Dry, Good Turgur ED Reassessment (Disposition) - Reassessment Reassessment:: medical decision making pt with coffee ground emesis x 2 labs do not show an acute immediate abnormality will advise admission and further work up. consult GI pt case discussed with Dr. Handley Reassessment Condition:: Improved - Diagnosis Diagnosis:: Upper GI bleed - Patient Disposition Discharge/Transfer:: Acute Care w/in this hosp Admitted to:: Med/Surg Admitting Medical Physician:: Adilia Handley Time:: 00:15 Condition at Disposition:: Stable, Improved
[2018-06-06 22:55] LABS: % BASOPHILS 0.4 % (0.0-2.0); % EOSINOPHILS 3.3 % (0.0-5.0); % LYMPHOCYTES 23.6 % (20.0-50.0); % MONOCYTES 10.3 % (2.0-10.0); % NEUTROPHILS 62.4 % (40.0-80.0); EOSINOPHILE ABSOLUTE 0.2 Th/cmm (0.1-0.4); HEMATOCRIT 37.1 % (41.0-60); HEMOGLOBIN 12.1 gm/dL (12-16); LYMPHOCYTE ABSOLUTE 1.2 Th/cmm (1.5-3.0); MEAN CELL VOLUME 91.8 fl (80-99); MEAN CORPUSCULAR HEMOGLOBIN 30.1 pg (27.0-31.0); MEAN CORPUSCULAR HGB CONC 32.7 pg (28.0-36.0); MEAN PLATELET VOLUME 7.1 fl; MONOCYTE ABSOLUTE 0.5 Th/cmm (0.3-1.0); PLATELET COUNT 185 Th/cmm (150-400); RED BLOOD COUNT 4.04 Mil/cmm (3.80-5.80); RED CELL DISTRIBUTION WIDTH 13.8 % (11.5-20.0); WHITE BLOOD COUNT 4.9 Th/cmm (4.8-10.8)
[2018-06-06 23:09] LABS: INR 1.12 (0.5-1.4); PROTHROMBIN TIME (TEST) 11.5 SECONDS (9.5-11.5)
[2018-06-06 23:13] LABS: ALB/GLOB RATIO 1.2 (1.0-1.8); ALBUMIN 3.5 gm/dL (4.2-5.5); ALKALINE PHOSPHATASE 60 U/L (34-104); ANION GAP 12.3 (7.0-16.0); BILIRUBIN,TOTAL 0.7 mg/dL (0.3-1.0); BUN - UREA NITROGEN 24 mg/dL (7-25); CALCIUM SERUM 9.1 mg/dL (8.6-10.3); CARBON DIOXIDE 23.8 mEq/L (21.0-31.0); CHLORIDE 104 mEq/L (98-107); CREATININE - SERUM 0.9 mg/dL (0.7-1.3); GLUCOSE 104 mg/dL (70-105); POTASSIUM SERUM 4.1 mEq/L (3.5-5.1); SGOT 21 U/L (13-39); SGPT/ALT 15 U/L (7-52); SODIUM SERUM 136 mEq/L (136-145); TOTAL PROTEIN,SERUM 6.4 gm/dL (6.0-8.3)
[2018-06-07] MEDS: D5-0.45NS 1,000 ML IV SCH ×2 (04:36→18:00)
[2018-06-07 05:36] LABS: % BASOPHILS 0.6 % (0.0-2.0); % EOSINOPHILS 6.4 % (0.0-5.0); % LYMPHOCYTES 27.3 % (20.0-50.0); % MONOCYTES 13.5 % (2.0-10.0); % NEUTROPHILS 52.2 % (40.0-80.0); EOSINOPHILE ABSOLUTE 0.3 Th/cmm (0.1-0.4); HEMATOCRIT 33.8 % (41.0-60); HEMOGLOBIN 11.2 gm/dL (12-16); LYMPHOCYTE ABSOLUTE 1.3 Th/cmm (1.5-3.0); MEAN CELL VOLUME 92.1 fl (80-99); MEAN CORPUSCULAR HEMOGLOBIN 30.5 pg (27.0-31.0); MEAN CORPUSCULAR HGB CONC 33.1 pg (28.0-36.0); MEAN PLATELET VOLUME 7.8 fl; MONOCYTE ABSOLUTE 0.6 Th/cmm (0.3-1.0); NEUTROPHILE ABSOLUTE 2.5 Th/cmm (1.8-8.0); PLATELET COUNT 170 Th/cmm (150-400); RED BLOOD COUNT 3.67 Mil/cmm (3.80-5.80); RED CELL DISTRIBUTION WIDTH 13.6 % (11.5-20.0); WHITE BLOOD COUNT 4.7 Th/cmm (4.8-10.8)
[2018-06-07 05:45] LABS: URINE SOURCE CLEAN C
[2018-06-07 05:49] LABS: INR 1.06 (0.5-1.4)
[2018-06-07 05:51] LABS: URINE BILIRUBIN NEGATIVE (NEGATIVE); URINE BLOOD NEGATIVE (NEGATIVE); URINE GLUCOSE (UA) NEGATIVE (NEGATIVE); URINE KETONE 15 mg/dL (NEGATIVE); URINE LEUKOCYTE ESTERASE NEGATIVE (NEGATIVE); URINE NITRATE NEGATIVE (NEGATIVE); URINE PROTEIN NEGATIVE (NEGATIVE); URINE UROBILINOGEN 0.2 E.U./dL (0.2 - 1.0)
[2018-06-07 05:54] LABS: URINE CLARITY CLEAR (CLEAR); URINE COLOR ORANGE
[2018-06-07 05:55] LABS: URINE MICROSCOPIC INDICATED? NO
[2018-06-07 06:10] LABS: ANION GAP 11.5 (7.0-16.0); BUN - UREA NITROGEN 25 mg/dL (7-25); CALCIUM SERUM 8.4 mg/dL (8.6-10.3); CHLORIDE 106 mEq/L (98-107); CREATININE - SERUM 0.9 mg/dL (0.7-1.3); GLUCOSE 96 mg/dL (70-105); POTASSIUM SERUM 4.5 mEq/L (3.5-5.1); SODIUM SERUM 138 mEq/L (136-145)
[2018-06-07 07:52] VITALS: BP 112/63
--- NOTE | 2018-06-07 12:24 | Consultation ---
DATE OF CONSULTATION: 06/07/2018 REQUESTING PHYSICIAN: Dr. Handley. REASON FOR CONSULTATION: Coffee-ground emesis. Thank you for asking me to see this patient in consultation. HISTORY OF PRESENT ILLNESS: This is a pleasant 87-year-old male with history of mild cognitive impairment and possibly dementia, history of colon cancer, status post resection in remission, prostate cancer in remission, who presents with his second hospitalization for coffee-ground emesis. The patient had 2 episodes of coffee-ground emesis and has been also complaining of [id number] dull abdominal discomfort for many months. When he arrived to the hospital, he was not having any further episodes of vomiting, but was complaining of abdominal pain. He otherwise looks well. I discussed his history with his daughter who stated that he has never had any upper endoscopy performed before. PAST MEDICAL HISTORY: Dementia, CVA, TIA, atrial fibrillation. SOCIAL HISTORY: No tobacco, alcohol or drugs. He lives at [facility]. PAST SURGICAL HISTORY: Colon cancer surgery in the past. MEDICATIONS: Have been reviewed. FAMILY HISTORY: Noncontributory for GI disease. REVIEW OF SYSTEMS: As in HPI. All other 12-point systems are negative. PHYSICAL EXAMINATION: VITAL SIGNS: Temperature of 97.6, pulse of 66, blood pressure is 112/63, respiratory rate of 20, satting 94% on room air. GENERAL: He is in no acute distress, slightly hard of hearing. HEENT: Normocephalic, atraumatic. PERRL positive. LUNGS: Clear bilaterally. No wheezes, rales or rhonchi. HEART: Regular rate and rhythm, normal S1, S2. ABDOMEN: Soft, nontender. Bowel sounds are positive. EXTREMITIES: Show no lower extremity edema. PSYCHIATRIC: Alert, oriented x 2. NEUROLOGIC: Grossly intact. LABORATORY DATA: Hemoglobin of 11.2, white count of 4.7. Sodium 138, potassium 4.5. IMAGING: None relevant. ASSESSMENT AND PLAN: This is a pleasant 87-year-old male with history of likely dementia, history of stroke who presents with recurrence of coffee-ground emesis as well as abdominal discomfort and mild anemia. 1. Coffee-ground emesis. 2. Abdominal pain. 3. History of colon cancer. 4. History of prostate cancer. 5. Dementia. The patient has had two recurrences for the similar episode and warrants further endoscopic investigation to rule out esophagitis, esophageal cancer, gastric malignancy, gastritis or even peptic ulcer disease. Okay to start clear-liquid diet in this patient and keep him n.p.o. after midnight. We will for an endoscopy tomorrow. I discussed this plan of care with his daughter who would appreciate a further investigation to find out what is going on with her father. Thank you for allowing me to participate in this consultation. [facility]# [id number]
[2018-06-07] MEDS ORDERED: VTE Chemical Prophylaxis Screen/Admission MC PRN (14:25)
[2018-06-07] MEDS ORDERED: Fleet Enema 135 mL RC PRN (19:15)
--- NOTE | 2018-06-07 20:58 | History & Physical ---
ADMIT DATE: 06/07/2018 HISTORY OF PRESENT ILLNESS: The patient is [facility]. The patient's number is [id number]. The patient started having nausea, vomiting, abdominal pain and coffee-ground emesis, was brought to the Emergency Room, was admitted for possible GI bleeding. The patient has prior history of cerebrovascular accident, history of COPD, history of atrial fibrillation, history of prostate CA, history of colon CA. The patient is complaining of lower abdominal pain and no other problems. REVIEW OF SYSTEMS: Otherwise, negative. PAST MEDICAL HISTORY: As noted above. PAST SURGICAL HISTORY: Colon cancer surgery. PHYSICAL EXAMINATION: GENERAL: The patient is alert, oriented, well-developed male patient. VITAL SIGNS: Noted in chart. HEAD: Normal. ENT: Normal. NECK: Supple, nontender. LUNGS: Clear. CARDIOVASCULAR SYSTEM: S1 and S2. ABDOMEN: Soft. Bowel sounds heard. CENTRAL NERVOUS SYSTEM: Slightly confused, normal. DIAGNOSES: Coffee-ground emesis, possible upper gastrointestinal bleeding, history of prostate cancer, history of hypertension, history of chronic obstructive pulmonary disease, history of colon cancer and history of surgery for that, history of left-sided knee replacement. PLAN: The patient is being admitted and I will call the GI doctor and I will also call Dr. Alex for Neurology consult and also will have Dr. Sree Amador see the patient for cardiac clearance. JOB# [id number]
[2018-06-07] MEDS: Magnesium Hydroxide (MOM) 30 mL UDC PO SCH (21:28)
[2018-06-08 05:56] LABS: INR 1.04 (0.5-1.4); PROTHROMBIN TIME (TEST) 10.8 SECONDS (9.5-11.5)
[2018-06-08] MEDS: D5-0.45NS 1,000 ML IV SCH ×2 (06:54→20:31)
--- NOTE | 2018-06-08 08:30 | Diagnostic Imaging Report ---
CHEST X-RAY: AP view INDICATION: Cough, preop COMPARISON: 04/08/2018 FINDINGS: Increased interstitial lung markings are noted. Right midlung atelectasis or scarring is noted. No focal consolidation or pleural effusions. Heart size normal. Degenerative changes spine are noted with scoliosis. IMPRESSION: Increased interstitial lung markings suggestive of chronic changes. No focal consolidation identified.
[2018-06-08] MEDS: Calcium Carb/Vit D 500 mg/200 U Tab PO SCH (08:32)
[2018-06-08] MEDS: Multivitamin w/ Minerals Tab PO SCH (08:32)
[2018-06-08] MEDS: Aspirin 81mg Chewable Tab PO SCH (08:32)
[2018-06-08] MEDS: Diltiazem CD 120 mg 24H PO SCH (08:32)
[2018-06-08 08:39] LABS: % BASOPHILS 0.6 % (0.0-2.0); % EOSINOPHILS 8.8 % (0.0-5.0); % LYMPHOCYTES 28.3 % (20.0-50.0); % MONOCYTES 10.4 % (2.0-10.0); % NEUTROPHILS 51.9 % (40.0-80.0); EOSINOPHILE ABSOLUTE 0.5 Th/cmm (0.1-0.4); HEMATOCRIT 34.8 % (41.0-60); HEMOGLOBIN 11.4 gm/dL (12-16); LYMPHOCYTE ABSOLUTE 1.5 Th/cmm (1.5-3.0); MEAN CELL VOLUME 93.1 fl (80-99); MEAN CORPUSCULAR HEMOGLOBIN 30.4 pg (27.0-31.0); MEAN CORPUSCULAR HGB CONC 32.7 pg (28.0-36.0); MEAN PLATELET VOLUME 7.9 fl; MONOCYTE ABSOLUTE 0.6 Th/cmm (0.3-1.0); NEUTROPHILE ABSOLUTE 2.7 Th/cmm (1.8-8.0); PLATELET COUNT 179 Th/cmm (150-400); RED BLOOD COUNT 3.74 Mil/cmm (3.80-5.80); RED CELL DISTRIBUTION WIDTH 13.5 % (11.5-20.0); WHITE BLOOD COUNT 5.3 Th/cmm (4.8-10.8)
[2018-06-08 08:53] LABS: ANION GAP 9.2 (7.0-16.0); BUN - UREA NITROGEN 14 mg/dL (7-25); CALCIUM SERUM 8.6 mg/dL (8.6-10.3); CARBON DIOXIDE 24.6 mEq/L (21.0-31.0); CHLORIDE 106 mEq/L (98-107); CREATININE - SERUM 0.8 mg/dL (0.7-1.3); GLUCOSE 96 mg/dL (70-105); POTASSIUM SERUM 3.8 mEq/L (3.5-5.1); SODIUM SERUM 136 mEq/L (136-145)
[2018-06-08] MEDS ORDERED: Lidocaine 2% Gel 5 mL TP ONE (13:50)
[2018-06-08] MEDS ORDERED: Propofol 10 mg/mL 20mL Vial **SURGERY USE ONLY IV ONE (13:50)
[2018-06-08] MEDS ORDERED: Influenza Vaccine (65 yr & older) 0.5 ml Syr IM ONE (14:00)
--- NOTE | 2018-06-08 15:34 | General Progress Note ---
Subjective - Review of Systems Events since last encounter: pt. c/o abd pain Objective - Results Result Diagrams: 06/09/18 05:14 06/09/18 05:14 Recent Labs: Laboratory Last Values WBC 5.3 Th/cmm (4.8-10.8) 06/08/18 05:15 RBC 3.74 Mil/cmm (3.80-5.80) L 06/08/18 05:15 Hgb 11.4 gm/dL (12-16) L 06/08/18 05:15 Hct 34.8 % (41.0-60) L 06/08/18 05:15 MCV 93.1 fl (80-99) 06/08/18 05:15 MCH 30.4 pg (27.0-31.0) 06/08/18 05:15 MCHC Differential 32.7 pg (28.0-36.0) 06/08/18 05:15 RDW 13.5 % (11.5-20.0) 06/08/18 05:15 Plt Count 179 Th/cmm (150-400) 06/08/18 05:15 MPV 7.9 fl 06/08/18 05:15 Neutrophils % 51.9 % (40.0-80.0) 06/08/18 05:15 Lymphocytes % 28.3 % (20.0-50.0) 06/08/18 05:15 Monocytes % 10.4 % (2.0-10.0) H 06/08/18 05:15 Eosinophils % 8.8 % (0.0-5.0) H 06/08/18 05:15 Basophils % 0.6 % (0.0-2.0) 06/08/18 05:15 PT 10.8 SECONDS (9.5-11.5) 06/08/18 05:15 INR 1.04 (0.5-1.4) 06/08/18 05:15 PTT (Actin FS) 26.2 SECONDS (26.0-38.0) 06/07/18 04:50 Sodium 136 mEq/L (136-145) 06/08/18 05:15 Potassium 3.8 mEq/L (3.5-5.1) 06/08/18 05:15 Chloride 106 mEq/L (98-107) 06/08/18 05:15 Carbon Dioxide 24.6 mEq/L (21.0-31.0) 06/08/18 05:15 Anion Gap 9.2 (7.0-16.0) 06/08/18 05:15 BUN 14 mg/dL (7-25) 06/08/18 05:15 Creatinine 0.8 mg/dL (0.7-1.3) 06/08/18 05:15 Est GFR ( Amer) TNP 06/08/18 05:15 Est GFR (Non-Af Amer) TNP 06/08/18 05:15 BUN/Creatinine Ratio 17.5 06/08/18 05:15 Glucose 96 mg/dL (70-105) 06/08/18 05:15 POC Glucose 94 MG/DL (70 - 105) 06/08/18 13:34 Calcium 8.6 mg/dL (8.6-10.3) 06/08/18 05:15 Total Bilirubin 0.7 mg/dL (0.3-1.0) 06/06/18 22:50 AST 21 U/L (13-39) 06/06/18 22:50 ALT 15 U/L (7-52) 06/06/18 22:50 Alkaline Phosphatase 60 U/L (34-104) 06/06/18 22:50 Total Protein 6.4 gm/dL (6.0-8.3) 06/06/18 22:50 Albumin 3.5 gm/dL (4.2-5.5) L 06/06/18 22:50 Globulin 2.9 gm/dL 06/06/18 22:50 Albumin/Globulin Ratio 1.2 (1.0-1.8) 06/06/18 22:50 Urine Source CLEAN C 06/07/18 03:40 Urine Color ORANGE 06/07/18 03:40 Urine Clarity CLEAR (CLEAR) 06/07/18 03:40 Urine pH 6.0 (4.6 - 8.0) 06/07/18 03:40 Ur Specific [place] >= 1.030 (1.005-1.030) 06/07/18 03:40 Urine Protein NEGATIVE mg/dL (NEGATIVE) 06/07/18 03:40 Urine Glucose (UA) NEGATIVE mg/dL (NEGATIVE) 06/07/18 03:40 Urine Ketones 15 mg/dL (NEGATIVE) H 06/07/18 03:40 Urine Blood NEGATIVE (NEGATIVE) 06/07/18 03:40 Urine Nitrate NEGATIVE (NEGATIVE) 06/07/18 03:40 Urine Bilirubin NEGATIVE (NEGATIVE) 06/07/18 03:40 Urine Urobilinogen 0.2 E.U./dL (0.2 - 1.0) 06/07/18 03:40 Ur Leukocyte Esterase NEGATIVE (NEGATIVE) 06/07/18 03:40 - Physical Exam Vitals and I&O: Vital Signs Temp 97.2 F 06/08/18 13:40 Pulse 64 06/08/18 13:40 Resp 18 06/08/18 13:40 BP 144/80 06/08/18 13:40 Pulse Ox 98 06/08/18 13:40 Intake & Output 06/07/18 06/08/18 06/08/18 18:59 06:59 18:59 Intake Total 1250 967.5 0 Balance 1250 967.5 0 Weight (lbs) 74.843 kg 84.64 kg 84.368 kg Intake: Intake, IV Amount 1000 967.5 D5-0.45NS 1,000 ml @ 75 1000 967.5 mls/hr IV .[id number] [facility] Rx #:[id number] Oral 250 0 Tube Feeding 0 Other: # Voids 2 2 3 # Bowel Movements 0 0 0 Weight Source Bedscale Bedscale Bedscale Active Medications: Current Medications Acetaminophen (Tylenol) 650 mg PO Q6HR PRN PRN Reason: Pain or Fever >101 Stop: 08/06/18 19:14 Amiodarone HCl (Cordarone) 200 mg PO DAILY [facility] Stop: 08/07/18 08:59 Last Admin: 06/08/18 08:32 Dose: Not Given Aspirin (Aspirin Chewable) 81 mg PO DAILY [facility] Stop: 08/07/18 08:59 Last Admin: 06/08/18 08:32 Dose: Not Given Bisacodyl (Dulcolax 10 Mg Supp) 10 mg RC PRN PRN PRN Reason: Constipation Stop: 08/06/18 19:14 Calcium/Vitamin D (Oscal W/Vitamin D) 1 tab PO DAILY [facility] Stop: 08/07/18 08:59 Last Admin: 06/08/18 08:32 Dose: Not Given Diltiazem HCl (Cardizem Cd) 240 mg PO DAILY [facility] Stop: 08/07/18 08:59 Last Admin: 06/08/18 08:32 Dose: Not Given Dextrose/Sodium Chloride (D5-0.45ns) 1,000 mls @ 75 mls/hr IV .[id number] [facility] Stop: 08/06/18 03:59 Last Admin: 06/08/18 06:54 Dose: 75 mls/hr Losartan Potassium (Cozaar) 25 mg PO DAILY [facility] Stop: 08/07/18 08:59 Last Admin: 06/08/18 08:32 Dose: Not Given Magnesium Hydroxide (Milk Of Magnesia) 30 ml PO HS [facility] Stop: 08/06/18 20:59 Last Admin: 06/07/18 21:28 Dose: Not Given Metoclopramide HCl (Reglan) 10 mg PO Q8HR [facility] Stop: 08/06/18 20:59 Last Admin: 06/08/18 13:27 Dose: Not Given Mirtazapine (Remeron) 7.5 mg PO HS [facility] Stop: 08/06/18 20:59 Miscellaneous (Vte Chemical Prophylaxis Screen/ Admission) 1 ea [facility] PRN PRN PRN Reason: PROTOCOL Stop: 08/06/18 14:24 Pantoprazole Sodium (Protonix) 40 mg IVP Q12H [facility] Stop: 08/06/18 21:29 Last Admin: 06/08/18 09:32 Dose: 40 mg Sodium Phosphate (Fleet Enema) 135 ml RC PRN PRN PRN Reason: Constipation Stop: 08/06/18 19:14 Tamsulosin HCl (Flomax) 0.4 mg PO DAILY [facility] Stop: 08/07/18 08:59 Last Admin: 06/08/18 08:32 Dose: Not Given General: Alert, No acute distress HEENT: Atraumatic, PERRLA, EOMI Neck: Supple Cardiovascular: Regular rate Lungs: Clear to auscultation Abdomen: Bowel sounds, Soft, Tender Psych/Mental Status: Mental status NL Assessment/Plan - Assessment Assessment: coffee ground emesis possible upper gi bleed h/o prostate cancer h/o htn h/o copd h/o colon cancer, had surgery h/o left knee total replacement - Plan Plan: as per GI, endoscopy to done cpm
--- NOTE | 2018-06-08 15:58 | Operative Report ---
DATE OF SURGERY: 06/08/2018 PROCEDURE: Esophagogastroduodenoscopy with biopsy. PREOPERATIVE DIAGNOSIS: Upper gastrointestinal bleed. POSTOPERATIVE DIAGNOSES: 1. Mild esophagitis, status post biopsy. 2. Small hiatal hernia. 3. Mild gastritis, status post biopsy and CLOtest. 4. Upper gastrointestinal bleed, likely from a combination of esophagitis and gastritis, now stopped. INDICATIONS: An 87-year-old male admitted for upper GI bleed, undergoing an upper endoscopy for further evaluation. CONSENT: Informed consent was obtained from the patient and his family prior to procedure after detailed explanation of risks, benefits and alternatives including, but not limited to infection, bleeding, perforation and . SEDATION: Monitored anesthesia care per Dr. Velez. DESCRIPTION OF PROCEDURE AND FINDINGS: The procedure took place as an inpatient in the GI suite of [facility]. The patient was kept in a left lateral decubitus position. Adequate sedation was achieved by Dr. Velez. An Olympus diagnostic upper endoscope was advanced via the patient's mouth and into the esophagus. It was advanced via the stomach and into the duodenum up to second portion. Retroflexion was next performed in the stomach. Notable findings included mild reflux esophagitis change with a slightly irregular appearing Z-line at about 38 cm from the gums. Biopsy obtained from here to rule out short segment Teran's esophagus. Retroflexion in the stomach revealed a small 1-2 cm hiatal hernia. No GE junction, masses or varices were identified. Mild gastritis was identified of the antrum. Biopsies were obtained from antrum and mid body submitted for CLOtest as well as pathology. The pyloric channel and duodenum up to this portion appeared normal. The scope was then withdrawn from the patient. The patient tolerated the procedure well and no complications are anticipated. RECOMMENDATIONS: 1. Follow up biopsy results. 2. Protonix. 3. Oral diet as tolerated. 4. Antiemetics as needed. Thank you, Dr. Roger Handley for involving us in the care of your patient. If you have any further questions, please call us. JOB# [id number]
[2018-06-08] MEDS: Magnesium Hydroxide (MOM) 30 mL UDC PO SCH (20:30)
[2018-06-09 05:33] LABS: EOSINOPHILE ABSOLUTE 0.3 Th/cmm (0.1-0.4); MONOCYTE ABSOLUTE 0.5 Th/cmm (0.3-1.0)
[2018-06-09 05:40] LABS: % BASOPHILS 0.5 % (0.0-2.0); % EOSINOPHILS 5.8 % (0.0-5.0); % LYMPHOCYTES 24.3 % (20.0-50.0); % MONOCYTES 8.8 % (2.0-10.0); % NEUTROPHILS 60.6 % (40.0-80.0); HEMOGLOBIN 12.2 gm/dL (12-16); LYMPHOCYTE ABSOLUTE 1.5 Th/cmm (1.5-3.0); MEAN CELL VOLUME 91.9 fl (80-99); MEAN CORPUSCULAR HEMOGLOBIN 31.1 pg (27.0-31.0); MEAN CORPUSCULAR HGB CONC 33.9 pg (28.0-36.0); MEAN PLATELET VOLUME 7.4 fl; NEUTROPHILE ABSOLUTE 3.7 Th/cmm (1.8-8.0); PLATELET COUNT 199 Th/cmm (150-400); RED BLOOD COUNT 3.92 Mil/cmm (3.80-5.80)
[2018-06-09 06:02] LABS: ANION GAP 10.1 (7.0-16.0); BUN - UREA NITROGEN 6 mg/dL (7-25); CALCIUM SERUM 8.8 mg/dL (8.6-10.3); CARBON DIOXIDE 24.5 mEq/L (21.0-31.0); CHLORIDE 107 mEq/L (98-107); CREATININE - SERUM 0.9 mg/dL (0.7-1.3); GLUCOSE 94 mg/dL (70-105); POTASSIUM SERUM 3.6 mEq/L (3.5-5.1); SODIUM SERUM 138 mEq/L (136-145)
[2018-06-09] MEDS: Calcium Carb/Vit D 500 mg/200 U Tab PO SCH (09:30)
[2018-06-09] MEDS: Aspirin 81mg Chewable Tab PO SCH (09:30)
[2018-06-09] MEDS: Diltiazem CD 120 mg 24H PO SCH (09:30)
[2018-06-09] MEDS: Multivitamin w/ Minerals Tab PO SCH (09:30)
[2018-06-09] MEDS: D5-0.45NS 1,000 ML IV SCH (13:23)
--- NOTE | 2018-06-09 15:45 | General Progress Note ---
Subjective - Review of Systems Events since last encounter: pt. tolerating diet, abd pain improving Objective - Results Result Diagrams: 06/09/18 05:14 06/09/18 05:14 Recent Labs: Laboratory Last Values WBC 6.0 Th/cmm (4.8-10.8) 06/09/18 05:14 RBC 3.92 Mil/cmm (3.80-5.80) 06/09/18 05:14 Hgb 12.2 gm/dL (12-16) 06/09/18 05:14 Hct 36.0 % (41.0-60) L 06/09/18 05:14 MCV 91.9 fl (80-99) 06/09/18 05:14 MCH 31.1 pg (27.0-31.0) H 06/09/18 05:14 MCHC Differential 33.9 pg (28.0-36.0) 06/09/18 05:14 RDW 13.0 % (11.5-20.0) 06/09/18 05:14 Plt Count 199 Th/cmm (150-400) 06/09/18 05:14 MPV 7.4 fl 06/09/18 05:14 Neutrophils % 60.6 % (40.0-80.0) 06/09/18 05:14 Lymphocytes % 24.3 % (20.0-50.0) 06/09/18 05:14 Monocytes % 8.8 % (2.0-10.0) 06/09/18 05:14 Eosinophils % 5.8 % (0.0-5.0) H 06/09/18 05:14 Basophils % 0.5 % (0.0-2.0) 06/09/18 05:14 PT 10.8 SECONDS (9.5-11.5) 06/08/18 05:15 INR 1.04 (0.5-1.4) 06/08/18 05:15 PTT (Actin FS) 26.2 SECONDS (26.0-38.0) 06/07/18 04:50 Sodium 138 mEq/L (136-145) 06/09/18 05:14 Potassium 3.6 mEq/L (3.5-5.1) 06/09/18 05:14 Chloride 107 mEq/L (98-107) 06/09/18 05:14 Carbon Dioxide 24.5 mEq/L (21.0-31.0) 06/09/18 05:14 Anion Gap 10.1 (7.0-16.0) 06/09/18 05:14 BUN 6 mg/dL (7-25) L 06/09/18 05:14 Creatinine 0.9 mg/dL (0.7-1.3) 06/09/18 05:14 Est GFR ( Amer) TNP 06/09/18 05:14 Est GFR (Non-Af Amer) TNP 06/09/18 05:14 BUN/Creatinine Ratio 6.7 06/09/18 05:14 Glucose 94 mg/dL (70-105) 06/09/18 05:14 POC Glucose 94 MG/DL (70 - 105) 06/08/18 13:34 Calcium 8.8 mg/dL (8.6-10.3) 06/09/18 05:14 Total Bilirubin 0.7 mg/dL (0.3-1.0) 06/06/18 22:50 AST 21 U/L (13-39) 06/06/18 22:50 ALT 15 U/L (7-52) 06/06/18 22:50 Alkaline Phosphatase 60 U/L (34-104) 06/06/18 22:50 Total Protein 6.4 gm/dL (6.0-8.3) 06/06/18 22:50 Albumin 3.5 gm/dL (4.2-5.5) L 06/06/18 22:50 Globulin 2.9 gm/dL 06/06/18 22:50 Albumin/Globulin Ratio 1.2 (1.0-1.8) 06/06/18 22:50 Urine Source CLEAN C 06/07/18 03:40 Urine Color ORANGE 06/07/18 03:40 Urine Clarity CLEAR (CLEAR) 06/07/18 03:40 Urine pH 6.0 (4.6 - 8.0) 06/07/18 03:40 Ur Specific [place] >= 1.030 (1.005-1.030) 06/07/18 03:40 Urine Protein NEGATIVE mg/dL (NEGATIVE) 06/07/18 03:40 Urine Glucose (UA) NEGATIVE mg/dL (NEGATIVE) 06/07/18 03:40 Urine Ketones 15 mg/dL (NEGATIVE) H 06/07/18 03:40 Urine Blood NEGATIVE (NEGATIVE) 06/07/18 03:40 Urine Nitrate NEGATIVE (NEGATIVE) 06/07/18 03:40 Urine Bilirubin NEGATIVE (NEGATIVE) 06/07/18 03:40 Urine Urobilinogen 0.2 E.U./dL (0.2 - 1.0) 06/07/18 03:40 Ur Leukocyte Esterase NEGATIVE (NEGATIVE) 06/07/18 03:40 Helicobacter pylori Ab NEGATIVE (NEGATIVE) 06/08/18 14:45 - Physical Exam Vitals and I&O: Vital Signs Temp 98.1 F 06/09/18 15:19 Pulse 78 06/09/18 15:19 Resp 18 06/09/18 15:19 BP 133/76 06/09/18 15:19 Pulse Ox 99 06/09/18 15:19 Intake & Output 06/08/18 06/09/18 06/09/18 18:59 06:59 18:59 Intake Total 900 1240 1000 Balance 900 1240 1000 Weight (lbs) 84.368 kg 84.368 kg Intake: Intake, IV Amount 1000 1000 D5-0.45NS 1,000 ml @ 75 1000 1000 mls/hr IV .[id number] [facility] Rx #:[id number] Oral 900 240 Tube Feeding 0 Other: # Voids 2 800 # Bowel Movements 1 1 Stool Characteristics Soft Soft Weight Source Bedscale Bedscale Active Medications: Current Medications Acetaminophen (Tylenol) 650 mg PO Q6HR PRN PRN Reason: Pain or Fever >101 Stop: 08/06/18 19:14 Amiodarone HCl (Cordarone) 200 mg PO DAILY [facility] Stop: 08/07/18 08:59 Last Admin: 06/09/18 09:30 Dose: 200 mg Aspirin (Aspirin Chewable) 81 mg PO DAILY [facility] Stop: 08/07/18 08:59 Last Admin: 06/09/18 09:30 Dose: 81 mg Bisacodyl (Dulcolax 10 Mg Supp) 10 mg RC PRN PRN PRN Reason: Constipation Stop: 08/06/18 19:14 Calcium/Vitamin D (Oscal W/Vitamin D) 1 tab PO DAILY [facility] Stop: 08/07/18 08:59 Last Admin: 06/09/18 09:30 Dose: 1 tab Diltiazem HCl (Cardizem Cd) 240 mg PO DAILY [facility] Stop: 08/07/18 08:59 Last Admin: 06/09/18 09:30 Dose: 240 mg Dextrose/Sodium Chloride (D5-0.45ns) 1,000 mls @ 75 mls/hr IV .[id number] [facility] Stop: 08/06/18 03:59 Last Admin: 06/09/18 13:23 Dose: 75 mls/hr Losartan Potassium (Cozaar) 25 mg PO DAILY [facility] Stop: 08/07/18 08:59 Last Admin: 06/09/18 09:30 Dose: 25 mg Magnesium Hydroxide (Milk Of Magnesia) 30 ml PO HS [facility] Stop: 08/06/18 20:59 Last Admin: 06/08/18 20:30 Dose: 30 ml Metoclopramide HCl (Reglan) 10 mg PO Q8HR [facility] Stop: 08/06/18 20:59 Last Admin: 06/09/18 13:20 Dose: 10 mg Mirtazapine (Remeron) 7.5 mg PO HS [facility] Stop: 08/06/18 20:59 Miscellaneous (Vte Chemical Prophylaxis Screen/ Admission) 1 ea [facility] PRN PRN PRN Reason: PROTOCOL Stop: 08/06/18 14:24 Pantoprazole Sodium (Protonix) 40 mg IVP Q12H [facility] Stop: 08/06/18 21:29 Last Admin: 06/09/18 09:29 Dose: 40 mg Sodium Phosphate (Fleet Enema) 135 ml RC PRN PRN PRN Reason: Constipation Stop: 08/06/18 19:14 Tamsulosin HCl (Flomax) 0.4 mg PO DAILY [facility] Stop: 08/07/18 08:59 Last Admin: 06/09/18 09:30 Dose: 0.4 mg General: Alert, No acute distress HEENT: Atraumatic, PERRLA, EOMI Neck: Supple Cardiovascular: Regular rate Lungs: Clear to auscultation Abdomen: Bowel sounds, Soft, Tender Psych/Mental Status: Mental status NL - Procedures Procedures: Procedures Procedure Code Date EXCISION OF LOWER ESOPHAGUS, ENDO, DIAGN [id number] 06/07/18 Assessment/Plan - Assessment Assessment: coffee ground emesis possible upper gi bleed h/o prostate cancer h/o htn h/o copd h/o colon cancer, had surgery h/o left knee total replacement - Plan Plan: as per GI, endoscopy to done cpm
[2018-06-09] MEDS: Magnesium Hydroxide (MOM) 30 mL UDC PO SCH (21:41)
--- NOTE | 2018-06-09 22:53 | GI Progress Note ---
Subjective - Review of Systems Service Date: 06/09/18 Subjective: JACK ORAL DIET. Objective - Results Result Diagrams: 06/09/18 05:14 06/09/18 05:14 Recent Labs: Laboratory Last Values WBC 6.0 Th/cmm (4.8-10.8) 06/09/18 05:14 RBC 3.92 Mil/cmm (3.80-5.80) 06/09/18 05:14 Hgb 12.2 gm/dL (12-16) 06/09/18 05:14 Hct 36.0 % (41.0-60) L 06/09/18 05:14 MCV 91.9 fl (80-99) 06/09/18 05:14 MCH 31.1 pg (27.0-31.0) H 06/09/18 05:14 MCHC Differential 33.9 pg (28.0-36.0) 06/09/18 05:14 RDW 13.0 % (11.5-20.0) 06/09/18 05:14 Plt Count 199 Th/cmm (150-400) 06/09/18 05:14 MPV 7.4 fl 06/09/18 05:14 Neutrophils % 60.6 % (40.0-80.0) 06/09/18 05:14 Lymphocytes % 24.3 % (20.0-50.0) 06/09/18 05:14 Monocytes % 8.8 % (2.0-10.0) 06/09/18 05:14 Eosinophils % 5.8 % (0.0-5.0) H 06/09/18 05:14 Basophils % 0.5 % (0.0-2.0) 06/09/18 05:14 PT 10.8 SECONDS (9.5-11.5) 06/08/18 05:15 INR 1.04 (0.5-1.4) 06/08/18 05:15 PTT (Actin FS) 26.2 SECONDS (26.0-38.0) 06/07/18 04:50 Sodium 138 mEq/L (136-145) 06/09/18 05:14 Potassium 3.6 mEq/L (3.5-5.1) 06/09/18 05:14 Chloride 107 mEq/L (98-107) 06/09/18 05:14 Carbon Dioxide 24.5 mEq/L (21.0-31.0) 06/09/18 05:14 Anion Gap 10.1 (7.0-16.0) 06/09/18 05:14 BUN 6 mg/dL (7-25) L 06/09/18 05:14 Creatinine 0.9 mg/dL (0.7-1.3) 06/09/18 05:14 Est GFR ( Amer) TNP 06/09/18 05:14 Est GFR (Non-Af Amer) TNP 06/09/18 05:14 BUN/Creatinine Ratio 6.7 06/09/18 05:14 Glucose 94 mg/dL (70-105) 06/09/18 05:14 POC Glucose 94 MG/DL (70 - 105) 06/08/18 13:34 Calcium 8.8 mg/dL (8.6-10.3) 06/09/18 05:14 Total Bilirubin 0.7 mg/dL (0.3-1.0) 06/06/18 22:50 AST 21 U/L (13-39) 06/06/18 22:50 ALT 15 U/L (7-52) 06/06/18 22:50 Alkaline Phosphatase 60 U/L (34-104) 06/06/18 22:50 Total Protein 6.4 gm/dL (6.0-8.3) 06/06/18 22:50 Albumin 3.5 gm/dL (4.2-5.5) L 06/06/18 22:50 Globulin 2.9 gm/dL 06/06/18 22:50 Albumin/Globulin Ratio 1.2 (1.0-1.8) 06/06/18 22:50 Urine Source CLEAN C 06/07/18 03:40 Urine Color ORANGE 06/07/18 03:40 Urine Clarity CLEAR (CLEAR) 06/07/18 03:40 Urine pH 6.0 (4.6 - 8.0) 06/07/18 03:40 Ur Specific [place] >= 1.030 (1.005-1.030) 06/07/18 03:40 Urine Protein NEGATIVE mg/dL (NEGATIVE) 06/07/18 03:40 Urine Glucose (UA) NEGATIVE mg/dL (NEGATIVE) 06/07/18 03:40 Urine Ketones 15 mg/dL (NEGATIVE) H 06/07/18 03:40 Urine Blood NEGATIVE (NEGATIVE) 06/07/18 03:40 Urine Nitrate NEGATIVE (NEGATIVE) 06/07/18 03:40 Urine Bilirubin NEGATIVE (NEGATIVE) 06/07/18 03:40 Urine Urobilinogen 0.2 E.U./dL (0.2 - 1.0) 06/07/18 03:40 Ur Leukocyte Esterase NEGATIVE (NEGATIVE) 06/07/18 03:40 Helicobacter pylori Ab NEGATIVE (NEGATIVE) 06/08/18 14:45 - Physical Exam Vitals and I&O: Vital Signs Temp 98.0 F 06/09/18 20:00 Pulse 72 06/09/18 20:00 Resp 18 06/09/18 20:00 BP 115/57 06/09/18 20:00 Pulse Ox 97 06/09/18 20:00 Intake & Output 06/09/18 06/09/18 06/10/18 06:59 18:59 06:59 Intake Total 1240 1000 Balance 1240 1000 Weight (lbs) 84.368 kg 82.1 kg Intake: Intake, IV Amount 1000 1000 D5-0.45NS 1,000 ml @ 75 1000 1000 mls/hr IV .[id number] [facility] Rx #:[id number] Oral 240 Other: # Voids 800 # Bowel Movements 1 Stool Characteristics Soft Soft Weight Source Bedscale Bedscale Active Medications: Current Medications Acetaminophen (Tylenol) 650 mg PO Q6HR PRN PRN Reason: Pain or Fever >101 Stop: 08/06/18 19:14 Amiodarone HCl (Cordarone) 200 mg PO DAILY [facility] Stop: 08/07/18 08:59 Last Admin: 06/09/18 09:30 Dose: 200 mg Aspirin (Aspirin Chewable) 81 mg PO DAILY [facility] Stop: 08/07/18 08:59 Last Admin: 06/09/18 09:30 Dose: 81 mg Bisacodyl (Dulcolax 10 Mg Supp) 10 mg RC PRN PRN PRN Reason: Constipation Stop: 08/06/18 19:14 Calcium/Vitamin D (Oscal W/Vitamin D) 1 tab PO DAILY [facility] Stop: 08/07/18 08:59 Last Admin: 06/09/18 09:30 Dose: 1 tab Diltiazem HCl (Cardizem Cd) 240 mg PO DAILY [facility] Stop: 08/07/18 08:59 Last Admin: 06/09/18 09:30 Dose: 240 mg Dextrose/Sodium Chloride (D5-0.45ns) 1,000 mls @ 75 mls/hr IV .[id number] [facility] Stop: 08/06/18 03:59 Last Admin: 06/09/18 13:23 Dose: 75 mls/hr Losartan Potassium (Cozaar) 25 mg PO DAILY [facility] Stop: 08/07/18 08:59 Last Admin: 06/09/18 09:30 Dose: 25 mg Magnesium Hydroxide (Milk Of Magnesia) 30 ml PO HS [facility] Stop: 08/06/18 20:59 Last Admin: 06/09/18 21:41 Dose: 30 ml Metoclopramide HCl (Reglan) 10 mg PO Q8HR [facility] Stop: 08/06/18 20:59 Last Admin: 06/09/18 21:41 Dose: 10 mg Mirtazapine (Remeron) 7.5 mg PO HS [facility] Stop: 08/06/18 20:59 Last Admin: 06/09/18 21:41 Dose: 7.5 mg Miscellaneous (Vte Chemical Prophylaxis Screen/ Admission) 1 ea MC PRN PRN PRN Reason: PROTOCOL Stop: 08/06/18 14:24 Pantoprazole Sodium (Protonix) 40 mg IVP Q12H [facility] Stop: 08/06/18 21:29 Last Admin: 06/09/18 22:02 Dose: 40 mg Sodium Phosphate (Fleet Enema) 135 ml RC PRN PRN PRN Reason: Constipation Stop: 08/06/18 19:14 Tamsulosin HCl (Flomax) 0.4 mg PO DAILY [facility] Stop: 08/07/18 08:59 Last Admin: 06/09/18 09:30 Dose: 0.4 mg General: Alert, No acute distress HEENT: PERRLA Neck: Supple Cardiovascular: Regular rate Lungs: Normal air movement Abdomen: Bowel sounds, Soft Psych/Mental Status: Mental status NL - Procedures Procedures: Procedures Procedure Code Date EXCISION OF LOWER ESOPHAGUS, ENDO, DIAGN [id number] 06/07/18 Assessment/Plan - Assessment Assessment: IMPRESSION: 1. UGIB - EGD SHOWED MILD ESOPHAGITIS, SMALL HIATAL HERNIA, MILD GASTRITIS. 2. MILD ANEMIA. RECS: 1. F/U BX RESULTS. 2. PROTONIX. 3. ANTIEMETICS PRN. 4. MONITOR HGB. 5. ORAL DIET JACK. GI BARCLAY STABLE.
[2018-06-10] MEDS: D5-0.45NS 1,000 ML IV SCH (03:05)
[2018-06-10] MEDS: Calcium Carb/Vit D 500 mg/200 U Tab PO SCH (08:32)
[2018-06-10] MEDS: Aspirin 81mg Chewable Tab PO SCH (08:32)
[2018-06-10] MEDS: Multivitamin w/ Minerals Tab PO SCH (08:32)
[2018-06-10] MEDS: Diltiazem CD 120 mg 24H PO SCH (08:32)
--- NOTE | 2018-06-12 18:56 | Pathology Report ---
[id number] Collection Date: 06/08/2018 Surgeon: Dr. Eileen Cabrera Specimen Description: 1. Esophageal biopsy. 2. Antrum biopsy. Gross Description: Part I: Received in formalin is a single balderrama soft tissue fragment measuring 0.2 cm in greatest dimension. Totally submitted in one cassette labelled A. Gross Description: Part II: Received in formalin are two balderrama soft tissue fragments measuring from 0.1 to 0.2 cm in greatest dimension. Totally submitted in one cassette labelled B. Microscopic Description: Part I: The histologic sections show glandular and squamous mucosa consistent with esophago-gastric junction. There is chronic inflammation present consisting of increased numbers of lymphocytes and plasma cells. The Alcian blue stain shows no significant abnormalities. The PAS stain shows no evidence for fungal organisms. Diagnosis: Part I: Chronic inflammation consistent with esophagogastritis (esophageal biopsy). Microscopic Description: Part II: The histologic sections show gastric mucosa with chronic inflammation present consisting of increased numbers of lymphocytes and plasma cells. The Giemsa stain shows no evidence for Helicobacter pylori. Diagnosis: Part II: 1. Chronic gastritis, antrum biopsy. 2. The Giemsa stain is negative for Helicobacter pylori. JOB# [id number]
== END 2018-06-10 15:30 | DRG 377 ==
LOC: ER 21:52 → MSI 06-07 02:15
PROVIDERS: ADMIT Internal Medicine; ATTEND Internal Medicine
PROC: 0DB58ZX Excision of Esophagus, Via Natural or Artificial Opening Endoscopic, Diagnostic (ICD-10-PCS; principal; 2018-06-08)
PROC: 0DB68ZX Excision of Stomach, Via Natural or Artificial Opening Endoscopic, Diagnostic (ICD-10-PCS; 2018-06-08)
DX: K29.71 Gastritis, unspecified, with bleeding (principal); R53.2 Functional quadriplegia; I69.354 Hemiplegia and hemiparesis following cerebral infarction affecting left non-dominant side; F03.90 Unspecified dementia, unspecified severity, without behavioral disturbance, psychotic disturbance, mood disturbance, and anxiety; I48.91 Unspecified atrial fibrillation; J44.9 Chronic obstructive pulmonary disease, unspecified; Z96.652 Presence of left artificial knee joint; D64.9 Anemia, unspecified; K20.9 Esophagitis, unspecified; K44.9 Diaphragmatic hernia without obstruction or gangrene; Z85.038 Personal history of other malignant neoplasm of large intestine; Z85.46 Personal history of malignant neoplasm of prostate
CPT/HCPCS: 36415-UA; 71045-TC; 80048-TC; 80053-TC; 81003-TC; 82948-90; 85025-TC; 85610-TC; 87338-TC; 93005; 96374; C9113; J2704; J7030; Z7610

== ENCOUNTER 2018-07-17 01:13 | Inpatient (IN) | payer MEDICARE, MEDICAID ==
--- NOTE | 2018-07-17 01:42 | ED Physician Chart ---
ED Chief Complaint/HPI - Patient Information Date Seen:: 07/17/18 Time Seen:: 01:36 Chief Complaint:: vomiting coffee ground color vomitus History of Present Illness:: THIS IS AN 87 YO MALE SENT FROM [facility] FOR EVALUATION AND TREATMENT FOR VOMITING UP BLOOD. THIS PATIENT HAS BEEN IN THIS HOSPITAL TWICE IN THE PAST FOR THE SAME PROBLEM. Allergies:: Allergies Allergy/AdvReac Type Severity Reaction Status Date / Time No Known Allergies Allergy Verified 07/17/18 01:33 Historian:: Medical Records Review:: Nurse's Note Reviewed, Old Chart Reviewed ED Review of Systems - Review of Systems General/Constitutional: No fever, No chills, No weight loss, No weakness, No diaphoresis, No edema, No loss of appetite, Other (THIS PATIENT IS UNABLE TO GIVE A REVIEW OF SYSTEMS.) Skin: No skin lesions, No rash, No bruising Head: No headache, No light-headedness Eyes: No loss of vision, No pain, No diplopia ENT: No earache, No nasal drainage, No sore throat, No tinnitus Neck: No neck pain, No swelling, No thyromegaly, No stiffness, No mass noted Cardio Vascular: No chest pain, No palpitations, No PND, No orthopnea, No edema Pulmonary: No SOB, No cough, No sputum, No wheezing GI: No nausea, No vomiting, No diarrhea, No pain, No melena, No hematochezia, No constipation, No hematemesis G/U: No dysuria, No frequency, No hematuria Musculoskeletal: No bone or joint pain, No back pain, No muscle pain Endocrine: No polyuria, No polydipsia Psychiatric: No prior psych history, No depression, No anxiety, No suicidal ideation Hematopoietic: No bruising, No lymphadenopathy Allergic/Immuno: No urticaria, No angioedema Neurological: No syncope, No focal symptoms, No weakness, No paresthesia, No headache, No seizure, No dizziness, No confusion, No vertigo ED Past Medical History - Past Medical History Obtainable: Yes Past Medical History: HTN, Asthma/COPD, CVA/TIA, PUD/GERD, Dementia, Other ( COLON CA, PROSTATE CA,A-FIB, RECTAL CA) Family History: None Social History: Non Smoker, No Alcohol, No Drug Use, Care Facility Surgical History: other (UNKNOWN) Psychiatricy History: Depression, Dementia Medication: Reviewed Family Medical History - Family Member Mother History Unknown: Yes ED Physical Exam - Physical Examination General/Constitutional: Awake, Well-developed, well-nourished, Alert, No distress, GCS 15, Non-toxic appearing, Ambulatory Other Gen/Cons comments:: LETHARGIC Head: Atraumatic Eyes: Lids, conjuctiva normal, PERRL, EOMI Skin: Nl inspection, No rash, No skin lesions, No ecchymosis, Well hydrated, No lymphadenopathy ENMT: External ears, nose nl, Nasal exam nl, Lips, teeth, gums nl Neck: Nontender, Full ROM w/o pain, No JVD, No nuchal rigidity, No bruit, No mass, No stridor Respiratory: Nl effort/Exclusion, Clear to Auscultation, No Wheeze/Rhonchi/ Rales (FEW RHONCHI HEARD BILATERALLY) Cardio Vascular: RRR, No murmur, gallop, rubs, NL S1 S2 GI: No tenderness/rebounding/guarding, No organomegaly, No hernia, Normal BS's, Nondistended, No mass/bruits, No McBurney tenderness : No CVA tenderness Extremities: No tenderness or effusion, Full ROM, normal strength in all extremities, No edema, Normal digits & nails Neuro/Psych: Alert/oriented, DTR's symmetric, Normal sensory exam, Normal motor strength, Judgement/insight normal, Mood normal, Normal gait, No focal deficits Other Neuro/Psych comments:: HEMIPLEGIC ON THE LEFT SIDE Misc: Normal back, No paraspinal tenderness ED Labs/Radiology/EKG Results - EKG Interpretations EKG Time:: 01:24 Rate & Rhythm: RATE =77, SINUS Frederica: LEFT AXIS ED Assessment - Assessment General Assessment: UPPER GI BLEED ED Septic Shock - . Is Septic Shock (SBP<90, OR Lactate>4 mmol\L) present?: No ED Reassessment (Disposition) - Reassessment Reassessment Condition:: Unchanged - Diagnosis Diagnosis:: UPPER GI BLEED - Patient Disposition Discharge/Transfer:: Acute Care w/in this hosp Admitting Medical Physician:: Adilia Handley
[2018-07-17 01:50] LABS: % BASOPHILS 2.5 % (0.0-2.0); % LYMPHOCYTES 8.6 % (20.0-50.0); % MONOCYTES 6.4 % (2.0-10.0); % NEUTROPHILS 81.5 % (40.0-80.0); BASOPHILE ABSOLUTE 0.2 Th/cumm (0-0.2); EOSINOPHILE ABSOLUTE 0.1 Th/cmm (0.1-0.4); HEMATOCRIT 42.2 % (41.0-60); HEMOGLOBIN 13.9 gm/dL (12-16); LYMPHOCYTE ABSOLUTE 0.9 Th/cmm (1.5-3.0); MEAN CELL VOLUME 90.5 fl (80-99); MEAN CORPUSCULAR HEMOGLOBIN 29.8 pg (27.0-31.0); MEAN CORPUSCULAR HGB CONC 32.9 pg (28.0-36.0); MEAN PLATELET VOLUME 7.8 fl; MONOCYTE ABSOLUTE 0.6 Th/cmm (0.3-1.0); NEUTROPHILE ABSOLUTE 8.1 Th/cmm (1.8-8.0); PLATELET COUNT 202 Th/cmm (150-400); RED BLOOD COUNT 4.66 Mil/cmm (3.80-5.80); RED CELL DISTRIBUTION WIDTH 14.7 % (11.5-20.0); WHITE BLOOD COUNT 9.9 Th/cmm (4.8-10.8)
[2018-07-17] MEDS ORDERED: Sodium Chloride 0.9% 1,000 ML IV ONE (01:54)
[2018-07-17 02:01] LABS: INR 1.04 (0.5-1.4); PROTHROMBIN TIME (TEST) 10.8 SECONDS (9.5-11.5)
[2018-07-17 02:06] LABS: ALB/GLOB RATIO 1.3 (1.0-1.8); ALBUMIN 3.9 gm/dL (4.2-5.5); ALKALINE PHOSPHATASE 66 U/L (34-104); ANION GAP 13.4 (7.0-16.0); BILIRUBIN,TOTAL 0.8 mg/dL (0.3-1.0); BUN - UREA NITROGEN 25 mg/dL (7-25); CALCIUM SERUM 9.5 mg/dL (8.6-10.3); CARBON DIOXIDE 24.1 mEq/L (21.0-31.0); CHLORIDE 103 mEq/L (98-107); GLUCOSE 133 mg/dL (70-105); POTASSIUM SERUM 4.5 mEq/L (3.5-5.1); SGOT 17 U/L (13-39); SGPT/ALT 10 U/L (7-52); SODIUM SERUM 136 mEq/L (136-145)
[2018-07-17] MEDS: D5-0.45NS 1,000 ML IV SCH ×3 (03:31→16:09)
[2018-07-17 05:07] VITALS: BP 119/66
[2018-07-17 06:21] LABS: BUN - UREA NITROGEN 26 mg/dL (7-25); CALCIUM SERUM 9.1 mg/dL (8.6-10.3); CARBON DIOXIDE 23.5 mEq/L (21.0-31.0); CHLORIDE 103 mEq/L (98-107); CHOLESTEROL 164 mg/dL (<200); GLUCOSE 152 mg/dL (70-105); HDL -HIGH DENSITY LIPOPROTEIN 67 mg/dL (23-92); POTASSIUM SERUM 4.5 mEq/L (3.5-5.1); SODIUM SERUM 135 mEq/L (136-145); TRIGLYCERIDES 41 mg/dL (<150)
[2018-07-17 07:11] LABS: % BASOPHILS 3.5 % (0.0-2.0); % EOSINOPHILS 0.2 % (0.0-5.0); % MONOCYTES 4.6 % (2.0-10.0); % NEUTROPHILS 82.7 % (40.0-80.0); BASOPHILE ABSOLUTE 0.3 Th/cumm (0-0.2); HEMATOCRIT 35.5 % (41.0-60); HEMOGLOBIN 12.1 gm/dL (12-16); LYMPHOCYTE ABSOLUTE 0.8 Th/cmm (1.5-3.0); MEAN CELL VOLUME 89.8 fl (80-99); MEAN CORPUSCULAR HEMOGLOBIN 30.6 pg (27.0-31.0); MEAN CORPUSCULAR HGB CONC 34.1 pg (28.0-36.0); MEAN PLATELET VOLUME 7.6 fl; MONOCYTE ABSOLUTE 0.4 Th/cmm (0.3-1.0); NEUTROPHILE ABSOLUTE 7.7 Th/cmm (1.8-8.0); PLATELET COUNT 165 Th/cmm (150-400); RED BLOOD COUNT 3.96 Mil/cmm (3.80-5.80); RED CELL DISTRIBUTION WIDTH 14.3 % (11.5-20.0); WHITE BLOOD COUNT 9.2 Th/cmm (4.8-10.8)
[2018-07-17 07:41] LABS: CREATININE - SERUM 1.2 mg/dL (0.7-1.3)
[2018-07-17 10:37] LABS: CREATININE - SERUM 1.3 mg/dL (0.7-1.3)
--- NOTE | 2018-07-17 16:40 | History & Physical ---
ADMIT DATE: 07/17/2018 HISTORY OF PRESENT ILLNESS: The patient is very well known to me from caring for him at [facility]. Apparently I got a call from [facility] setting that he has been having coffee-ground emesis. The patient was seen and evaluated at [facility] and the patient had similar problems before. The patient has history of gastritis and history of COPD, history of underlying dementia. The patient also has history of hypertension, history of CVA, history of peptic ulcer disease and history of colon cancer, history of prostatic CA, history of atrial fibrillation, rectal CA, and colostomy. REVIEW OF SYSTEMS: Essentially negative except for coffee ground emesis. PAST MEDICAL HISTORY: Hypertension, asthma, COPD, history of CVA, history of peptic ulcer disease, dementia, prostate CA, atrial fibrillation, and history of colon CA. SOCIAL HISTORY: Nonsmoker, nondrinker. PSYCHIATRIC HISTORY: Depression and dementia. PHYSICAL EXAMINATION: GENERAL: The patient is awake, alert, nontoxic. HEAD: Normal. ENT: Normal. NECK: Supple, nontender. LUNGS: Clear. CARDIOVASCULAR SYSTEM: S1, S2 heard. ABDOMEN: Soft. Bowel sounds are present. CENTRAL NERVOUS SYSTEM: The patient has some weakness of the left side. LABORATORY DATA: The EKG showed normal sinus rhythm. DIAGNOSES: 1. Upper gastrointestinal bleeding. 2. He has a history of prior CVA, left hemiparesis. 3. History of COPD. 4. History of hypertension. 5. History of asthma. 6. History of peptic ulcer disease. 7. History of GERD. 8. History of colon cancer. 9. History of prostate cancer. 10. History of atrial fibrillation. PLAN: The patient is being admitted and I will go ahead and have GI, Dr. See see the patient and will also have the hospital superintendent, Dr. Sree Amador, see the patient and I will follow the patient. JOB# [id number]
[2018-07-17] MEDS ORDERED: Non-Formulary Item 1 EA (Mirtazapine [Mirtazapine] 7.5 MG) PO SCH (21:00)
[2018-07-18 05:35] LABS: % BASOPHILS 0.6 % (0.0-2.0); % EOSINOPHILS 7.9 % (0.0-5.0); % LYMPHOCYTES 29.1 % (20.0-50.0); % MONOCYTES 9.1 % (2.0-10.0); % NEUTROPHILS 53.3 % (40.0-80.0); EOSINOPHILE ABSOLUTE 0.5 Th/cmm (0.1-0.4); HEMATOCRIT 34.3 % (41.0-60); HEMOGLOBIN 11.4 gm/dL (12-16); LYMPHOCYTE ABSOLUTE 1.8 Th/cmm (1.5-3.0); MEAN CELL VOLUME 90.7 fl (80-99); MEAN CORPUSCULAR HEMOGLOBIN 30.2 pg (27.0-31.0); MEAN CORPUSCULAR HGB CONC 33.3 pg (28.0-36.0); MEAN PLATELET VOLUME 7.5 fl; MONOCYTE ABSOLUTE 0.6 Th/cmm (0.3-1.0); NEUTROPHILE ABSOLUTE 3.2 Th/cmm (1.8-8.0); PLATELET COUNT 167 Th/cmm (150-400); RED BLOOD COUNT 3.78 Mil/cmm (3.80-5.80); RED CELL DISTRIBUTION WIDTH 14.2 % (11.5-20.0); WHITE BLOOD COUNT 6.1 Th/cmm (4.8-10.8)
--- NOTE | 2018-07-18 06:34 | Consultation ---
DATE OF CONSULTATION: 07/17/2018 REASON FOR CONSULTATION: Coffee-ground emesis. HISTORY OF PRESENT ILLNESS: This consult was obtained through the courtesy of Dr. Handley for this 87-year-old with history of dementia; history of colon cancer, status post resection and history of prostate cancer, admitted to the hospital for coffee-ground emesis. The patient apparently had an episode of coffee-ground emesis at that facility. He was sent here for further evaluation. The patient is not able to provide any history. Apparently, this is his third admission for the same problem. PAST MEDICAL HISTORY: 1. Dementia. 2. Prostatic cancer. 3. Colon cancer. 4. CVA. 5. Atrial fibrillation. PAST SURGICAL HISTORY: Prostate surgery and colon surgery. SOCIAL HISTORY: At this time, the patient is a nonsmoker, alcoholic, IV drug abuser. He lives at the nursing facility. FAMILY HISTORY: Noncontributory and unobtainable. REVIEW OF SYSTEMS: Unobtainable. ALLERGIES: No known drug allergies. MEDICATIONS: The patient is on Protonix and Zofran. PHYSICAL EXAMINATION: GENERAL: The patient is awake, oriented to self only, no acute distress. VITAL SIGNS: Blood pressure is 122/69, heart rate is 78, respiratory rate 17 and temperature is 97.4. HEAD AND NECK: Pupils reactive to light. Extraocular muscles could not be tested. Oral cavity, no lesion. NECK: Supple. CHEST: Good air entry. LUNGS: Clear to auscultation. CARDIOVASCULAR: Regular rate and rhythm. No murmur or gallop. ABDOMEN: Soft, positive bowel sounds. Abdomen was not tender. There is scar in the suprapubic area. Bowel sounds are present. EXTREMITIES: Lower extremities, no edema. CENTRAL NERVOUS SYSTEM: Unable to evaluate, but grossly nonfocal. LABORATORY DATA: Hemoglobin 12.1, hematocrit 35.5. PT is normal. IMPRESSION: An 87-year-old presented with gastrointestinal bleed. ASSESSMENT AND PLAN: Gastrointestinal bleed. The patient had an endoscopy, last month showed esophagitis and gastritis, most probably the same thing. RECOMMENDATIONS: 1. Continue with PPI. 2. Diet as tolerated. 3. Regular checkup for H and H. 4. In the event of future coffee-ground emesis unless there is an active bleeding there is no reason to bring the patient back to the hospital. If his H and H remain stable, we can increase the dose of medications. We can add Carafate. 5. History of colon cancer, this needs further evaluation, when was his last colonoscopy and this can be done as an outpatient. Other medical problem such as dementia, history of CVA, atrial fibrillation, etc., as per Dr. Handley. Thank you, Dr. Handley, for allowing me to participate in the care of the patient. If you have any further questions, please let me know. JOB# [id number]
[2018-07-18 08:09] LABS: IRON LC 44 ug/dL (38-169); TIBC (LC) 279 ug/dL (250-450); UIBC 235 ug/dL (111-343)
--- NOTE | 2018-07-18 09:00 | GI Progress Note ---
Subjective - Review of Systems Service Date: 07/18/18 Subjective: No further coffee ground emesis Objective - Results Result Diagrams: 07/18/18 05:30 07/17/18 05:08 Recent Labs: Laboratory Last Values WBC 6.1 Th/cmm (4.8-10.8) 07/18/18 05:30 RBC 3.78 Mil/cmm (3.80-5.80) L 07/18/18 05:30 Hgb 11.4 gm/dL (12-16) L 07/18/18 05:30 Hct 34.3 % (41.0-60) L 07/18/18 05:30 MCV 90.7 fl (80-99) 07/18/18 05:30 MCH 30.2 pg (27.0-31.0) 07/18/18 05:30 MCHC Differential 33.3 pg (28.0-36.0) 07/18/18 05:30 RDW 14.2 % (11.5-20.0) 07/18/18 05:30 Plt Count 167 Th/cmm (150-400) 07/18/18 05:30 MPV 7.5 fl 07/18/18 05:30 Neutrophils % 53.3 % (40.0-80.0) 07/18/18 05:30 Lymphocytes % 29.1 % (20.0-50.0) 07/18/18 05:30 Monocytes % 9.1 % (2.0-10.0) 07/18/18 05:30 Eosinophils % 7.9 % (0.0-5.0) H 07/18/18 05:30 Basophils % 0.6 % (0.0-2.0) 07/18/18 05:30 PT 10.8 SECONDS (9.5-11.5) 07/17/18 01:35 INR 1.04 (0.5-1.4) 07/17/18 01:35 Sodium 135 mEq/L (136-145) L 07/17/18 05:08 Potassium 4.5 mEq/L (3.5-5.1) 07/17/18 05:08 Chloride 103 mEq/L (98-107) 07/17/18 05:08 Carbon Dioxide 23.5 mEq/L (21.0-31.0) 07/17/18 05:08 Anion Gap 13.0 (7.0-16.0) 07/17/18 05:08 BUN 26 mg/dL (7-25) H 07/17/18 05:08 Creatinine 1.2 mg/dL (0.7-1.3) 07/17/18 05:08 Est GFR ( Amer) TNP 07/17/18 05:08 Est GFR (Non-Af Amer) TNP 07/17/18 05:08 BUN/Creatinine Ratio 21.7 07/17/18 05:08 Glucose 152 mg/dL (70-105) H 07/17/18 05:08 Calcium 9.1 mg/dL (8.6-10.3) 07/17/18 05:08 Iron 44 ug/dL (38-169) 07/17/18 01:35 TIBC 279 ug/dL (250-450) 07/17/18 01:35 Iron Saturation 16 % (15-55) 07/17/18 01:35 Unsaturated IBC 235 ug/dL (111-343) 07/17/18 01:35 Total Bilirubin 0.8 mg/dL (0.3-1.0) 07/17/18 01:35 AST 17 U/L (13-39) 07/17/18 01:35 ALT 10 U/L (7-52) 07/17/18 01:35 Alkaline Phosphatase 66 U/L (34-104) 07/17/18 01:35 Troponin I 0.01 ng/mL (0.01-0.05) 07/17/18 01:35 Total Protein 7.0 gm/dL (6.0-8.3) 07/17/18 01:35 Albumin 3.9 gm/dL (4.2-5.5) L 07/17/18 01:35 Globulin 3.1 gm/dL 07/17/18 01:35 Albumin/Globulin Ratio 1.3 (1.0-1.8) 07/17/18 01:35 Triglycerides 41 mg/dL (<150) 07/17/18 05:08 Cholesterol 164 mg/dL (<200) 07/17/18 05:08 LDL Cholesterol Direct 86 mg/dL (75-193) 07/17/18 05:08 HDL Cholesterol 67 mg/dL (23-92) 07/17/18 05:08 TSH 1.44 uIU/ml (0.34-5.60) 07/17/18 05:08 - Physical Exam Vitals and I&O: Vital Signs Temp 97.5 F 07/18/18 04:00 Pulse 62 07/18/18 04:00 Resp 18 07/18/18 04:00 BP 126/72 07/18/18 04:00 Pulse Ox 94 07/18/18 04:00 Intake & Output 07/17/18 07/18/18 07/18/18 18:59 06:59 18:59 Intake Total 1300 Balance 1300 Weight (lbs) 80.739 kg 80.739 kg Intake: Intake, IV Amount 1000 D5-0.45NS 1,000 ml @ 125 1000 mls/hr IV .Q8H [facility] Rx#: [id number] Oral 300 Other: # Voids 2 # Bowel Movements 1 2 Weight Source Bedscale Bedscale Active Medications: Current Medications Acetaminophen (Tylenol) 650 mg PO Q6HR PRN PRN Reason: Pain or Fever >101 Stop: 09/15/18 14:58 Amiodarone HCl (Cordarone) 200 mg PO DAILY [facility] Stop: 09/16/18 08:59 Dextrose/Sodium Chloride (D5-0.45ns) 1,000 mls @ 75 mls/hr IV .[id number] [facility] Stop: 09/15/18 15:29 Last Admin: 07/17/18 16:09 Dose: 75 mls/hr Mirtazapine (Remeron) 7.5 mg PO HS [facility] Stop: 09/15/18 20:59 Last Admin: 07/17/18 20:45 Dose: 7.5 mg Pantoprazole Sodium (Protonix) 40 mg IVP BID [facility] Stop: 09/15/18 16:59 Last Admin: 07/17/18 17:53 Dose: 40 mg Rivastigmine (Exelon 9.5 Mg/24 Hr Tdm) 1 patch TD DAILY [facility] Stop: 09/16/18 08:59 Tamsulosin HCl (Flomax) 0.4 mg PO DAILY [facility] Stop: 09/16/18 08:59 Tramadol HCl (Ultram) 50 mg PO Q6H PRN PRN Reason: Pain (Moderate) Stop: 09/15/18 14:58 General: Alert HEENT: Atraumatic Cardiovascular: Regular rate Abdomen: Bowel sounds, Soft, no Tender, no Hepatomegaly, no Splenomegaly, no Distended, no Rebound, no Mass, no Guarding - Procedures Procedures: Procedures Procedure Code Date EXCISION OF ESOPHAGUS, ENDO, DIAGN [id number] 06/07/18 EXCISION OF STOMACH, ENDO, DIAGN [id number] 06/07/18 Assessment/Plan - Assessment Assessment: # Coffee ground emesis # Hx colon cancer # CVA # Afib Pt's coffee ground emesis has been thoroughly evaluated in the past with endoscopy on several occasions. No need to do this again unless hemostasis vie endoscopy is needed Plan: - ppi - diet as tolerated - no need to repeat EGD or transfer pt back to acute hospital unless there is active hematemesis that requires urgent endoscopy - trend hgb, transfuse as needed - cont other supportive measures as per primary GI to see intermittently, please call with any questions
[2018-07-18] MEDS: D5-0.45NS 1,000 ML IV SCH (09:50)
[2018-07-18] MEDS: Rivastigmine 9.5 mg/24 hr Tdm TD SCH (10:01)
[2018-07-18] MEDS: Multivitamin w/ Minerals Tab PO SCH (10:01)
--- NOTE | 2018-07-18 11:23 | Internal Medicine Prog Note ---
Internal Medicine Subjective - Subjective Service Date: 07/18/18 Patient seen and examined:: chart reviewed Patient is:: awake, confused Patient Complaints of:: other (Dis-oriented and mildly confused.) Per staff patient has:: no adverse event Internal Medicine Objective - Results Result Diagrams: 07/18/18 05:30 07/17/18 05:08 Recent Labs: Laboratory Last Values WBC 6.1 Th/cmm (4.8-10.8) 07/18/18 05:30 RBC 3.78 Mil/cmm (3.80-5.80) L 07/18/18 05:30 Hgb 11.4 gm/dL (12-16) L 07/18/18 05:30 Hct 34.3 % (41.0-60) L 07/18/18 05:30 MCV 90.7 fl (80-99) 07/18/18 05:30 MCH 30.2 pg (27.0-31.0) 07/18/18 05:30 MCHC Differential 33.3 pg (28.0-36.0) 07/18/18 05:30 RDW 14.2 % (11.5-20.0) 07/18/18 05:30 Plt Count 167 Th/cmm (150-400) 07/18/18 05:30 MPV 7.5 fl 07/18/18 05:30 Neutrophils % 53.3 % (40.0-80.0) 07/18/18 05:30 Lymphocytes % 29.1 % (20.0-50.0) 07/18/18 05:30 Monocytes % 9.1 % (2.0-10.0) 07/18/18 05:30 Eosinophils % 7.9 % (0.0-5.0) H 07/18/18 05:30 Basophils % 0.6 % (0.0-2.0) 07/18/18 05:30 PT 10.8 SECONDS (9.5-11.5) 07/17/18 01:35 INR 1.04 (0.5-1.4) 07/17/18 01:35 Sodium 135 mEq/L (136-145) L 07/17/18 05:08 Potassium 4.5 mEq/L (3.5-5.1) 07/17/18 05:08 Chloride 103 mEq/L (98-107) 07/17/18 05:08 Carbon Dioxide 23.5 mEq/L (21.0-31.0) 07/17/18 05:08 Anion Gap 13.0 (7.0-16.0) 07/17/18 05:08 BUN 26 mg/dL (7-25) H 07/17/18 05:08 Creatinine 1.2 mg/dL (0.7-1.3) 07/17/18 05:08 Est GFR ( Amer) TNP 07/17/18 05:08 Est GFR (Non-Af Amer) TNP 07/17/18 05:08 BUN/Creatinine Ratio 21.7 07/17/18 05:08 Glucose 152 mg/dL (70-105) H 07/17/18 05:08 Calcium 9.1 mg/dL (8.6-10.3) 07/17/18 05:08 Iron 44 ug/dL (38-169) 07/17/18 01:35 TIBC 279 ug/dL (250-450) 07/17/18 01:35 Iron Saturation 16 % (15-55) 07/17/18 01:35 Unsaturated IBC 235 ug/dL (111-343) 07/17/18 01:35 Total Bilirubin 0.8 mg/dL (0.3-1.0) 07/17/18 01:35 AST 17 U/L (13-39) 07/17/18 01:35 ALT 10 U/L (7-52) 07/17/18 01:35 Alkaline Phosphatase 66 U/L (34-104) 07/17/18 01:35 Troponin I 0.01 ng/mL (0.01-0.05) 07/17/18 01:35 Total Protein 7.0 gm/dL (6.0-8.3) 07/17/18 01:35 Albumin 3.9 gm/dL (4.2-5.5) L 07/17/18 01:35 Globulin 3.1 gm/dL 07/17/18 01:35 Albumin/Globulin Ratio 1.3 (1.0-1.8) 07/17/18 01:35 Triglycerides 41 mg/dL (<150) 07/17/18 05:08 Cholesterol 164 mg/dL (<200) 07/17/18 05:08 LDL Cholesterol Direct 86 mg/dL (75-193) 07/17/18 05:08 HDL Cholesterol 67 mg/dL (23-92) 07/17/18 05:08 TSH 1.44 uIU/ml (0.34-5.60) 07/17/18 05:08 - Physical Exam Vitals and I&O: Vital Signs Temp 97.5 F 07/18/18 04:00 Pulse 72 07/18/18 10:01 Resp 18 07/18/18 04:00 BP 126/72 07/18/18 04:00 Pulse Ox 94 07/18/18 04:00 Intake & Output 07/17/18 07/18/18 07/18/18 18:59 06:59 18:59 Intake Total 1300 Balance 1300 Weight (lbs) 80.739 kg 80.739 kg Intake: Intake, IV Amount 1000 D5-0.45NS 1,000 ml @ 125 1000 mls/hr IV .Q8H [facility] Rx#: [id number] Oral 300 Other: # Voids 2 # Bowel Movements 1 2 Weight Source Bedscale Bedscale Active Medications: Current Medications Acetaminophen (Tylenol) 650 mg PO Q6HR PRN PRN Reason: Pain or Fever >101 Stop: 09/15/18 14:58 Amiodarone HCl (Cordarone) 200 mg PO DAILY [facility] Stop: 09/16/18 08:59 Last Admin: 07/18/18 10:01 Dose: 200 mg Dextrose/Sodium Chloride (D5-0.45ns) 1,000 mls @ 75 mls/hr IV .[id number] [facility] Stop: 09/15/18 15:29 Last Admin: 07/18/18 09:50 Dose: Not Given Mirtazapine (Remeron) 7.5 mg PO HS [facility] Stop: 09/15/18 20:59 Last Admin: 07/17/18 20:45 Dose: 7.5 mg Pantoprazole Sodium (Protonix) 40 mg IVP BID [facility] Stop: 09/15/18 16:59 Last Admin: 07/17/18 17:53 Dose: 40 mg Rivastigmine (Exelon 9.5 Mg/24 Hr Tdm) 1 patch TD DAILY [facility] Stop: 09/16/18 08:59 Last Admin: 07/18/18 10:01 Dose: 1 patch Tamsulosin HCl (Flomax) 0.4 mg PO DAILY [facility] Stop: 09/16/18 08:59 Last Admin: 07/18/18 10:01 Dose: 0.4 mg Tramadol HCl (Ultram) 50 mg PO Q6H PRN PRN Reason: Pain (Moderate) Stop: 09/15/18 14:58 General: weak, lethargic HEENT: PERRLA, throat clear Neck: Supple, No JVD Lungs: other (All negative.) Cardiovascular: Normal S1, Normal S2 Extremities: other (General Weakness.) Neurological: lethargic, disorganized, muscle weakness - Procedures Procedures: Procedures Procedure Code Date EXCISION OF ESOPHAGUS, ENDO, DIAGN [id number] 06/07/18 EXCISION OF STOMACH, ENDO, DIAGN [id number] 06/07/18 Internal Medicine Assmt/Plan - Assessment Assessment: Dementia. Coffee Ground Emesis. Upper GI bleeding. History of Gerd. History of Peptic Ulcer Disease. History of COPD. Hististory of Hypertension. History of Asthma. History of Prostatic Cancer. History of Colon Cancer. History of CVA, with left hemiparesis. History of Atrial fibrillation. - Plan Plan: Continuation of care Monitor labs Monitor diet Monitor Mental progress. Continue present care management.
--- NOTE | 2018-07-18 11:46 | Internal Medicine Prog Note ---
Internal Medicine Subjective - Subjective Service Date: 07/18/18 Patient seen and examined:: chart reviewed Patient is:: awake, confused Patient Complaints of:: other (Mildly confused, oriented to self only.) Per staff patient has:: no adverse event, confused Internal Medicine Objective - Results Result Diagrams: 07/18/18 05:30 07/17/18 05:08 Recent Labs: Laboratory Last Values WBC 6.1 Th/cmm (4.8-10.8) 07/18/18 05:30 RBC 3.78 Mil/cmm (3.80-5.80) L 07/18/18 05:30 Hgb 11.4 gm/dL (12-16) L 07/18/18 05:30 Hct 34.3 % (41.0-60) L 07/18/18 05:30 MCV 90.7 fl (80-99) 07/18/18 05:30 MCH 30.2 pg (27.0-31.0) 07/18/18 05:30 MCHC Differential 33.3 pg (28.0-36.0) 07/18/18 05:30 RDW 14.2 % (11.5-20.0) 07/18/18 05:30 Plt Count 167 Th/cmm (150-400) 07/18/18 05:30 MPV 7.5 fl 07/18/18 05:30 Neutrophils % 53.3 % (40.0-80.0) 07/18/18 05:30 Lymphocytes % 29.1 % (20.0-50.0) 07/18/18 05:30 Monocytes % 9.1 % (2.0-10.0) 07/18/18 05:30 Eosinophils % 7.9 % (0.0-5.0) H 07/18/18 05:30 Basophils % 0.6 % (0.0-2.0) 07/18/18 05:30 PT 10.8 SECONDS (9.5-11.5) 07/17/18 01:35 INR 1.04 (0.5-1.4) 07/17/18 01:35 Sodium 135 mEq/L (136-145) L 07/17/18 05:08 Potassium 4.5 mEq/L (3.5-5.1) 07/17/18 05:08 Chloride 103 mEq/L (98-107) 07/17/18 05:08 Carbon Dioxide 23.5 mEq/L (21.0-31.0) 07/17/18 05:08 Anion Gap 13.0 (7.0-16.0) 07/17/18 05:08 BUN 26 mg/dL (7-25) H 07/17/18 05:08 Creatinine 1.2 mg/dL (0.7-1.3) 07/17/18 05:08 Est GFR ( Amer) TNP 07/17/18 05:08 Est GFR (Non-Af Amer) TNP 07/17/18 05:08 BUN/Creatinine Ratio 21.7 07/17/18 05:08 Glucose 152 mg/dL (70-105) H 07/17/18 05:08 Calcium 9.1 mg/dL (8.6-10.3) 07/17/18 05:08 Iron 44 ug/dL (38-169) 07/17/18 01:35 TIBC 279 ug/dL (250-450) 07/17/18 01:35 Iron Saturation 16 % (15-55) 07/17/18 01:35 Unsaturated IBC 235 ug/dL (111-343) 07/17/18 01:35 Total Bilirubin 0.8 mg/dL (0.3-1.0) 07/17/18 01:35 AST 17 U/L (13-39) 07/17/18 01:35 ALT 10 U/L (7-52) 07/17/18 01:35 Alkaline Phosphatase 66 U/L (34-104) 07/17/18 01:35 Troponin I 0.01 ng/mL (0.01-0.05) 07/17/18 01:35 Total Protein 7.0 gm/dL (6.0-8.3) 07/17/18 01:35 Albumin 3.9 gm/dL (4.2-5.5) L 07/17/18 01:35 Globulin 3.1 gm/dL 07/17/18 01:35 Albumin/Globulin Ratio 1.3 (1.0-1.8) 07/17/18 01:35 Triglycerides 41 mg/dL (<150) 07/17/18 05:08 Cholesterol 164 mg/dL (<200) 07/17/18 05:08 LDL Cholesterol Direct 86 mg/dL (75-193) 07/17/18 05:08 HDL Cholesterol 67 mg/dL (23-92) 07/17/18 05:08 TSH 1.44 uIU/ml (0.34-5.60) 07/17/18 05:08 - Physical Exam Vitals and I&O: Vital Signs Temp 97.5 F 07/18/18 04:00 Pulse 72 07/18/18 10:01 Resp 18 07/18/18 04:00 BP 126/72 07/18/18 04:00 Pulse Ox 94 07/18/18 04:00 Intake & Output 07/17/18 07/18/18 07/18/18 18:59 06:59 18:59 Intake Total 1300 Balance 1300 Weight (lbs) 80.739 kg 80.739 kg Intake: Intake, IV Amount 1000 D5-0.45NS 1,000 ml @ 125 1000 mls/hr IV .Q8H [facility] Rx#: [id number] Oral 300 Other: # Voids 2 # Bowel Movements 1 2 Weight Source Bedscale Bedscale Active Medications: Current Medications Acetaminophen (Tylenol) 650 mg PO Q6HR PRN PRN Reason: Pain or Fever >101 Stop: 09/15/18 14:58 Amiodarone HCl (Cordarone) 200 mg PO DAILY [facility] Stop: 09/16/18 08:59 Last Admin: 07/18/18 10:01 Dose: 200 mg Dextrose/Sodium Chloride (D5-0.45ns) 1,000 mls @ 75 mls/hr IV .[id number] [facility] Stop: 09/15/18 15:29 Last Admin: 07/18/18 09:50 Dose: Not Given Mirtazapine (Remeron) 7.5 mg PO HS [facility] Stop: 09/15/18 20:59 Last Admin: 07/17/18 20:45 Dose: 7.5 mg Pantoprazole Sodium (Protonix) 40 mg IVP BID [facility] Stop: 09/15/18 16:59 Last Admin: 07/17/18 17:53 Dose: 40 mg Rivastigmine (Exelon 9.5 Mg/24 Hr Tdm) 1 patch TD DAILY [facility] Stop: 09/16/18 08:59 Last Admin: 07/18/18 10:01 Dose: 1 patch Tamsulosin HCl (Flomax) 0.4 mg PO DAILY [facility] Stop: 09/16/18 08:59 Last Admin: 07/18/18 10:01 Dose: 0.4 mg Tramadol HCl (Ultram) 50 mg PO Q6H PRN PRN Reason: Pain (Moderate) Stop: 09/15/18 14:58 General: weak HEENT: throat clear Neck: No JVD Cardiovascular: Normal S1, Normal S2 Abdomen: soft, non-tender Extremities: other (General Weakness.) - Procedures Procedures: Procedures Procedure Code Date EXCISION OF ESOPHAGUS, ENDO, DIAGN [id number] 06/07/18 EXCISION OF STOMACH, ENDO, DIAGN [id number] 06/07/18
[2018-07-19] MEDS: Multivitamin w/ Minerals Tab PO SCH (08:34)
[2018-07-19] MEDS: Rivastigmine 9.5 mg/24 hr Tdm TD SCH (08:34)
[2018-07-19] MEDS: D5-0.45NS 1,000 ML IV SCH (16:07)
--- NOTE | 2018-07-19 16:17 | Internal Medicine Prog Note ---
Internal Medicine Subjective - Subjective Service Date: 07/19/18 Patient is:: awake, confused Patient Complaints of:: other (Dis-oriented and mildly confused.) Per staff patient has:: no adverse event Internal Medicine Objective - Results Result Diagrams: 07/18/18 05:30 07/17/18 05:08 Recent Labs: Laboratory Last Values WBC 6.1 Th/cmm (4.8-10.8) 07/18/18 05:30 RBC 3.78 Mil/cmm (3.80-5.80) L 07/18/18 05:30 Hgb 11.4 gm/dL (12-16) L 07/18/18 05:30 Hct 34.3 % (41.0-60) L 07/18/18 05:30 MCV 90.7 fl (80-99) 07/18/18 05:30 MCH 30.2 pg (27.0-31.0) 07/18/18 05:30 MCHC Differential 33.3 pg (28.0-36.0) 07/18/18 05:30 RDW 14.2 % (11.5-20.0) 07/18/18 05:30 Plt Count 167 Th/cmm (150-400) 07/18/18 05:30 MPV 7.5 fl 07/18/18 05:30 Neutrophils % 53.3 % (40.0-80.0) 07/18/18 05:30 Lymphocytes % 29.1 % (20.0-50.0) 07/18/18 05:30 Monocytes % 9.1 % (2.0-10.0) 07/18/18 05:30 Eosinophils % 7.9 % (0.0-5.0) H 07/18/18 05:30 Basophils % 0.6 % (0.0-2.0) 07/18/18 05:30 PT 10.8 SECONDS (9.5-11.5) 07/17/18 01:35 INR 1.04 (0.5-1.4) 07/17/18 01:35 Sodium 135 mEq/L (136-145) L 07/17/18 05:08 Potassium 4.5 mEq/L (3.5-5.1) 07/17/18 05:08 Chloride 103 mEq/L (98-107) 07/17/18 05:08 Carbon Dioxide 23.5 mEq/L (21.0-31.0) 07/17/18 05:08 Anion Gap 13.0 (7.0-16.0) 07/17/18 05:08 BUN 26 mg/dL (7-25) H 07/17/18 05:08 Creatinine 1.2 mg/dL (0.7-1.3) 07/17/18 05:08 Est GFR ( Amer) TNP 07/17/18 05:08 Est GFR (Non-Af Amer) TNP 07/17/18 05:08 BUN/Creatinine Ratio 21.7 07/17/18 05:08 Glucose 152 mg/dL (70-105) H 07/17/18 05:08 Calcium 9.1 mg/dL (8.6-10.3) 07/17/18 05:08 Iron 44 ug/dL (38-169) 07/17/18 01:35 TIBC 279 ug/dL (250-450) 07/17/18 01:35 Iron Saturation 16 % (15-55) 07/17/18 01:35 Unsaturated IBC 235 ug/dL (111-343) 07/17/18 01:35 Total Bilirubin 0.8 mg/dL (0.3-1.0) 07/17/18 01:35 AST 17 U/L (13-39) 07/17/18 01:35 ALT 10 U/L (7-52) 07/17/18 01:35 Alkaline Phosphatase 66 U/L (34-104) 07/17/18 01:35 Troponin I 0.01 ng/mL (0.01-0.05) 07/17/18 01:35 Total Protein 7.0 gm/dL (6.0-8.3) 07/17/18 01:35 Albumin 3.9 gm/dL (4.2-5.5) L 07/17/18 01:35 Globulin 3.1 gm/dL 07/17/18 01:35 Albumin/Globulin Ratio 1.3 (1.0-1.8) 07/17/18 01:35 Triglycerides 41 mg/dL (<150) 07/17/18 05:08 Cholesterol 164 mg/dL (<200) 07/17/18 05:08 LDL Cholesterol Direct 86 mg/dL (75-193) 07/17/18 05:08 HDL Cholesterol 67 mg/dL (23-92) 07/17/18 05:08 TSH 1.44 uIU/ml (0.34-5.60) 07/17/18 05:08 - Physical Exam Vitals and I&O: Vital Signs Temp 96.8 F 07/19/18 12:00 Pulse 55 07/19/18 12:00 Resp 18 07/19/18 12:00 BP 124/79 07/19/18 12:00 Pulse Ox 98 07/19/18 12:00 Intake & Output 07/18/18 07/19/18 07/19/18 18:59 06:59 18:59 Intake Total 300 240 Balance 300 240 Weight (lbs) 178 lb 178 lb Intake: Oral 300 240 Other: # Voids 2 4 # Bowel Movements 1 4 Weight Source Bedscale Bedscale Active Medications: Current Medications Acetaminophen (Tylenol) 650 mg PO Q6HR PRN PRN Reason: Pain or Fever >101 Stop: 09/15/18 14:58 Amiodarone HCl (Cordarone) 200 mg PO DAILY [facility] Stop: 09/16/18 08:59 Last Admin: 07/19/18 08:34 Dose: 200 mg Dextrose/Sodium Chloride (D5-0.45ns) 1,000 mls @ 75 mls/hr IV .[id number] [facility] Stop: 09/15/18 15:29 Last Admin: 07/19/18 16:07 Dose: 75 mls/hr Mirtazapine (Remeron) 7.5 mg PO HS [facility] Stop: 09/15/18 20:59 Last Admin: 07/18/18 21:31 Dose: 7.5 mg Pantoprazole Sodium (Protonix) 40 mg IVP BID [facility] Stop: 09/15/18 16:59 Last Admin: 07/19/18 16:04 Dose: 40 mg Rivastigmine (Exelon 9.5 Mg/24 Hr Tdm) 1 patch TD DAILY [facility] Stop: 09/16/18 08:59 Last Admin: 07/19/18 08:34 Dose: 1 patch Tamsulosin HCl (Flomax) 0.4 mg PO DAILY [facility] Stop: 09/16/18 08:59 Last Admin: 07/19/18 08:34 Dose: 0.4 mg Tramadol HCl (Ultram) 50 mg PO Q6H PRN PRN Reason: Pain (Moderate) Stop: 09/15/18 14:58 General: weak, lethargic HEENT: PERRLA, throat clear Neck: Supple, No JVD Lungs: other (All negative.) Cardiovascular: Normal S1, Normal S2 Abdomen: soft, non-tender Extremities: other (General Weakness.) Neurological: lethargic, disorganized, muscle weakness - Procedures Procedures: Procedures Procedure Code Date EXCISION OF ESOPHAGUS, ENDO, DIAGN [id number] 06/07/18 EXCISION OF STOMACH, ENDO, DIAGN [id number] 06/07/18 Internal Medicine Assmt/Plan - Assessment Assessment: Dementia. Coffee Ground Emesis. Upper GI bleeding. History of Gerd. History of Peptic Ulcer Disease. History of COPD. Hististory of Hypertension. History of Asthma. History of Prostatic Cancer. History of Colon Cancer. History of CVA, with left hemiparesis. History of Atrial fibrillation. - Plan Plan: am labs monitor h/h ppi continue current plan of care
[2018-07-20 06:46] LABS: % BASOPHILS 0.5 % (0.0-2.0); % EOSINOPHILS 6.5 % (0.0-5.0); % LYMPHOCYTES 23.7 % (20.0-50.0); % MONOCYTES 8.9 % (2.0-10.0); % NEUTROPHILS 60.4 % (40.0-80.0); EOSINOPHILE ABSOLUTE 0.4 Th/cmm (0.1-0.4); HEMATOCRIT 36.6 % (41.0-60); HEMOGLOBIN 12.2 gm/dL (12-16); LYMPHOCYTE ABSOLUTE 1.6 Th/cmm (1.5-3.0); MEAN CORPUSCULAR HEMOGLOBIN 30.1 pg (27.0-31.0); MEAN CORPUSCULAR HGB CONC 33.4 pg (28.0-36.0); MEAN PLATELET VOLUME 7.7 fl; MONOCYTE ABSOLUTE 0.6 Th/cmm (0.3-1.0); NEUTROPHILE ABSOLUTE 4.3 Th/cmm (1.8-8.0); PLATELET COUNT 194 Th/cmm (150-400); RED BLOOD COUNT 4.07 Mil/cmm (3.80-5.80); RED CELL DISTRIBUTION WIDTH 14.2 % (11.5-20.0); WHITE BLOOD COUNT 6.9 Th/cmm (4.8-10.8)
[2018-07-20 06:58] LABS: BUN - UREA NITROGEN 15 mg/dL (7-25); CARBON DIOXIDE 25.7 mEq/L (21.0-31.0); CHLORIDE 105 mEq/L (98-107); CREATININE - SERUM 0.9 mg/dL (0.7-1.3); GLUCOSE 97 mg/dL (70-105); POTASSIUM SERUM 3.7 mEq/L (3.5-5.1); SODIUM SERUM 138 mEq/L (136-145)
[2018-07-20] MEDS: Multivitamin w/ Minerals Tab PO SCH (09:47)
--- NOTE | 2018-07-20 10:49 | Internal Medicine Prog Note ---
Internal Medicine Subjective - Subjective Service Date: 07/20/18 Patient seen and examined:: chart reviewed Patient is:: awake, verbal, confused Patient Complaints of:: other (remains Dis-oriented and mildly confused.) Per staff patient has:: no adverse event, no episodes of fall Internal Medicine Objective - Results Result Diagrams: 07/20/18 06:11 07/20/18 06:11 Recent Labs: Laboratory Last Values WBC 6.9 Th/cmm (4.8-10.8) 07/20/18 06:11 RBC 4.07 Mil/cmm (3.80-5.80) 07/20/18 06:11 Hgb 12.2 gm/dL (12-16) 07/20/18 06:11 Hct 36.6 % (41.0-60) L 07/20/18 06:11 MCV 90.0 fl (80-99) 07/20/18 06:11 MCH 30.1 pg (27.0-31.0) 07/20/18 06:11 MCHC Differential 33.4 pg (28.0-36.0) 07/20/18 06:11 RDW 14.2 % (11.5-20.0) 07/20/18 06:11 Plt Count 194 Th/cmm (150-400) 07/20/18 06:11 MPV 7.7 fl 07/20/18 06:11 Neutrophils % 60.4 % (40.0-80.0) 07/20/18 06:11 Lymphocytes % 23.7 % (20.0-50.0) 07/20/18 06:11 Monocytes % 8.9 % (2.0-10.0) 07/20/18 06:11 Eosinophils % 6.5 % (0.0-5.0) H 07/20/18 06:11 Basophils % 0.5 % (0.0-2.0) 07/20/18 06:11 PT 10.8 SECONDS (9.5-11.5) 07/17/18 01:35 INR 1.04 (0.5-1.4) 07/17/18 01:35 Sodium 138 mEq/L (136-145) 07/20/18 06:11 Potassium 3.7 mEq/L (3.5-5.1) 07/20/18 06:11 Chloride 105 mEq/L (98-107) 07/20/18 06:11 Carbon Dioxide 25.7 mEq/L (21.0-31.0) 07/20/18 06:11 Anion Gap 11.0 (7.0-16.0) 07/20/18 06:11 BUN 15 mg/dL (7-25) 07/20/18 06:11 Creatinine 0.9 mg/dL (0.7-1.3) 07/20/18 06:11 Est GFR ( Amer) TNP 07/20/18 06:11 Est GFR (Non-Af Amer) TNP 07/20/18 06:11 BUN/Creatinine Ratio 16.7 07/20/18 06:11 Glucose 97 mg/dL (70-105) 07/20/18 06:11 Calcium 9.0 mg/dL (8.6-10.3) 07/20/18 06:11 Iron 44 ug/dL (38-169) 07/17/18 01:35 TIBC 279 ug/dL (250-450) 07/17/18 01:35 Iron Saturation 16 % (15-55) 07/17/18 01:35 Unsaturated IBC 235 ug/dL (111-343) 07/17/18 01:35 Total Bilirubin 0.8 mg/dL (0.3-1.0) 07/17/18 01:35 AST 17 U/L (13-39) 07/17/18 01:35 ALT 10 U/L (7-52) 07/17/18 01:35 Alkaline Phosphatase 66 U/L (34-104) 07/17/18 01:35 Troponin I 0.01 ng/mL (0.01-0.05) 07/17/18 01:35 Total Protein 7.0 gm/dL (6.0-8.3) 07/17/18 01:35 Albumin 3.9 gm/dL (4.2-5.5) L 07/17/18 01:35 Globulin 3.1 gm/dL 07/17/18 01:35 Albumin/Globulin Ratio 1.3 (1.0-1.8) 07/17/18 01:35 Triglycerides 41 mg/dL (<150) 07/17/18 05:08 Cholesterol 164 mg/dL (<200) 07/17/18 05:08 LDL Cholesterol Direct 86 mg/dL (75-193) 07/17/18 05:08 HDL Cholesterol 67 mg/dL (23-92) 07/17/18 05:08 TSH 1.44 uIU/ml (0.34-5.60) 07/17/18 05:08 - Physical Exam Vitals and I&O: Vital Signs Temp 95.9 F 07/20/18 08:34 Pulse 69 07/20/18 08:34 Resp 18 07/20/18 08:34 BP 134/63 07/20/18 08:34 Pulse Ox 100 07/20/18 08:34 Intake & Output 07/19/18 07/20/18 07/20/18 18:59 06:59 18:59 Intake Total 600 Balance 600 Weight (lbs) 81.193 kg Intake: Oral 600 Other: # Voids 3 # Bowel Movements 1 Weight Source Bedscale Active Medications: Current Medications Acetaminophen (Tylenol) 650 mg PO Q6HR PRN PRN Reason: Pain or Fever >101 Stop: 09/15/18 14:58 Amiodarone HCl (Cordarone) 200 mg PO DAILY HILARY Stop: 09/16/18 08:59 Last Admin: 07/20/18 09:47 Dose: 200 mg Dextrose/Sodium Chloride (D5-0.45ns) 1,000 mls @ 75 mls/hr IV .[id number] HILARY Stop: 09/15/18 15:29 Last Admin: 07/19/18 16:07 Dose: 75 mls/hr Mirtazapine (Remeron) 7.5 mg PO HS HILARY Stop: 09/15/18 20:59 Last Admin: 07/19/18 20:56 Dose: 7.5 mg Pantoprazole Sodium (Protonix) 40 mg IVP BID HILARY Stop: 09/15/18 16:59 Last Admin: 07/20/18 09:47 Dose: 40 mg Rivastigmine (Exelon 9.5 Mg/24 Hr Tdm) 1 patch TD DAILY HILARY Stop: 09/16/18 08:59 Last Admin: 07/19/18 08:34 Dose: 1 patch Tamsulosin HCl (Flomax) 0.4 mg PO DAILY HILARY Stop: 09/16/18 08:59 Last Admin: 07/20/18 09:47 Dose: 0.4 mg Tramadol HCl (Ultram) 50 mg PO Q6H PRN PRN Reason: Pain (Moderate) Stop: 09/15/18 14:58 General: weak, lethargic HEENT: PERRLA, throat clear Neck: Supple, No JVD Lungs: other (All negative.) Cardiovascular: Normal S1, Normal S2 Abdomen: soft, non-tender Extremities: other (General Weakness.) Neurological: lethargic, disorganized, muscle weakness - Procedures Procedures: Procedures Procedure Code Date EXCISION OF ESOPHAGUS, ENDO, DIAGN [id number] 06/07/18 EXCISION OF STOMACH, ENDO, DIAGN [id number] 06/07/18 Internal Medicine Assmt/Plan - Assessment Assessment: Dementia. Coffee Ground Emesis. Upper GI bleeding. History of Gerd. History of Peptic Ulcer Disease. History of COPD. Hististory of Hypertension. History of Asthma. History of Prostatic Cancer. History of Colon Cancer. History of CVA, with left hemiparesis. History of Atrial fibrillation. - Plan Plan: Continuation of care Monitor labs Monitor diet Monitor Mental progress. Continue present care management.
[2018-07-20] MEDS: Rivastigmine 9.5 mg/24 hr Tdm TD SCH (12:34)
[2018-07-20] MEDS: D5-0.45NS 1,000 ML IV SCH (17:29)
--- NOTE | 2018-07-23 12:27 | Discharge Summary ---
DATE OF DISCHARGE: 07/20/2018 The patient was admitted to [facility] on 07/17/2018, the patient was discharged to [facility] on 07/20/2018. HOSPITAL COURSE: This is an elderly male patient, very well known to me. The patient known to have a history of functional quadriparesis, history of chronic obstructive pulmonary disease, history of severe dementia, history of hypertension, history of prostate cancer, history of colon cancer, and the patient came in because of coffee-ground emesis to rule out gastrointestinal bleeding. The patient was seen by the GI doctor and eventually the coffee-ground emesis stopped and GI doctor did not do any more workup because he has history of similar problem before, but the patient's hemoglobin was stable. With the final diagnoses of status post possible gastrointestinal bleeding, history of cerebrovascular accident with left hemiparesis, history of chronic obstructive pulmonary disease, hypertension, history of asthma, history of peptic ulcer disease, history of colon cancer, history of prostate cancer, history of atrial fibrillation and gastroesophageal reflux disease, the patient was sent back and I will be following the patient at [facility]. CONDITION AT TIME OF DISCHARGE: Stable. MEDICATIONS: See the reconciliation sheet. JOB# [id number]
== END 2018-07-20 19:25 | DRG 377 ==
LOC: ER 01:13 → TELE 01:36 → MSI 15:54
PROVIDERS: ADMIT Internal Medicine; ATTEND Internal Medicine
DX: K29.71 Gastritis, unspecified, with bleeding (principal); R53.2 Functional quadriplegia; I69.954 Hemiplegia and hemiparesis following unspecified cerebrovascular disease affecting left non-dominant side; I10 Essential (primary) hypertension; J44.9 Chronic obstructive pulmonary disease, unspecified; K21.9 Gastro-esophageal reflux disease without esophagitis; F03.90 Unspecified dementia, unspecified severity, without behavioral disturbance, psychotic disturbance, mood disturbance, and anxiety; I48.91 Unspecified atrial fibrillation; K20.9 Esophagitis, unspecified; Z85.048 Personal history of other malignant neoplasm of rectum, rectosigmoid junction, and anus; Z85.038 Personal history of other malignant neoplasm of large intestine; Z85.46 Personal history of malignant neoplasm of prostate
CPT/HCPCS: 36415-UA; 80048-TC; 80053-TC; 80061-TC; 83540-90; 83550-90; 84443-TC; 84484-TC; 85025-TC; 85610-TC; 93005; 97530; C9113; J2405; J7030; Z7610

== ENCOUNTER 2018-10-09 13:51 | Emergency (ER) | payer MEDICARE, MEDICAID ==
--- NOTE | 2018-10-09 14:29 | ED Physician Chart ---
ED Chief Complaint/HPI - Patient Information Date Seen:: 10/09/18 Time Seen:: 14:26 Chief Complaint:: abd pain History of Present Illness:: 87 yr old male bib from group home for nausea diarhea pt denies Allergies:: Allergies Allergy/AdvReac Type Severity Reaction Status Date / Time No Known Allergies Allergy Verified 10/09/18 14:11 Vitals:: Vital Signs - 8 hr 10/09/18 14:11 Temp 98.2 F HR 55 RR 18 BP 111/63 O2 Sat % 98 ED Review of Systems - Review of Systems General/Constitutional: No fever, No chills, No weight loss, No weakness, No diaphoresis, No edema, No loss of appetite Skin: No skin lesions, No rash, No bruising Head: No headache, No light-headedness Eyes: No loss of vision, No pain, No diplopia ENT: No earache, No nasal drainage, No sore throat, No tinnitus Neck: No neck pain, No swelling, No thyromegaly, No stiffness, No mass noted Cardio Vascular: No chest pain, No palpitations, No PND, No orthopnea, No edema Pulmonary: No SOB, No cough, No sputum, No wheezing GI: No nausea, No vomiting, No diarrhea, No pain, No melena, No hematochezia, No constipation, No hematemesis G/U: No dysuria, No frequency, No hematuria Musculoskeletal: No bone or joint pain, No back pain, No muscle pain Endocrine: No polyuria, No polydipsia Psychiatric: No prior psych history, No depression, No anxiety, No suicidal ideation Hematopoietic: No bruising, No lymphadenopathy Allergic/Immuno: No urticaria, No angioedema Neurological: No syncope, No focal symptoms, No weakness, No paresthesia, No headache, No seizure, No dizziness, No confusion, No vertigo ED Past Medical History - Past Medical History Past Medical History: Other (copd bph hard of hearing neoplasm of lower intestine recum htn afib 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 Is Septic Shock (SBP<90, OR Lactate>4 mmol\L) present?: No - <6hrs of presentation: Vital Signs: Vital Signs - 8 hr 10/09/18 14:11 Temp 98.2 F HR 55 RR 18 BP 111/63 O2 Sat % 98 ED Reassessment (Disposition) - Reassessment Reassessment:: hx of neoplasm colon - Diagnosis Diagnosis:: as above - Patient Disposition Admitted to:: Med/Surg Condition at Disposition:: Stable
[2018-10-09 14:50] LABS: % BASOPHILS 1.3 % (0.0-2.0); % EOSINOPHILS 8.5 % (0.0-5.0); % LYMPHOCYTES 33.8 % (20.0-50.0); % NEUTROPHILS 49.4 % (40.0-80.0); BASOPHILE ABSOLUTE 0.1 Th/cumm (0-0.2); EOSINOPHILE ABSOLUTE 0.4 Th/cmm (0.1-0.4); HEMATOCRIT 34.2 % (41.0-60); HEMOGLOBIN 11.6 gm/dL (12-16); LYMPHOCYTE ABSOLUTE 1.7 Th/cmm (1.5-3.0); MEAN CELL VOLUME 89.9 fl (80-99); MEAN CORPUSCULAR HEMOGLOBIN 30.4 pg (27.0-31.0); MEAN CORPUSCULAR HGB CONC 33.9 pg (28.0-36.0); MEAN PLATELET VOLUME 7.6 fl; MONOCYTE ABSOLUTE 0.4 Th/cmm (0.3-1.0); NEUTROPHILE ABSOLUTE 2.5 Th/cmm (1.8-8.0); PLATELET COUNT 178 Th/cmm (150-400); RED BLOOD COUNT 3.81 Mil/cmm (3.80-5.80); WHITE BLOOD COUNT 5.1 Th/cmm (4.8-10.8)
[2018-10-09 15:16] LABS: ALB/GLOB RATIO 1.2 (1.0-1.8); ALBUMIN 3.6 gm/dL (4.2-5.5); ALKALINE PHOSPHATASE 73 U/L (34-104); BILIRUBIN,TOTAL 0.4 mg/dL (0.3-1.0); BUN - UREA NITROGEN 24 mg/dL (7-25); CALCIUM SERUM 8.9 mg/dL (8.6-10.3); CARBON DIOXIDE 24.7 mEq/L (21.0-31.0); CHLORIDE 107 mEq/L (98-107); CREATININE - SERUM 1.2 mg/dL (0.7-1.3); GLUCOSE 100 mg/dL (70-105); POTASSIUM SERUM 4.7 mEq/L (3.5-5.1); SGOT 17 U/L (13-39); SGPT/ALT 9 U/L (7-52); SODIUM SERUM 137 mEq/L (136-145); TOTAL PROTEIN,SERUM 6.6 gm/dL (6.0-8.3)
--- NOTE | 2018-10-10 08:20 | Diagnostic Imaging Report ---
Exam: CT examination of the abdomen pelvis. HISTORY: Abdominal pain Total DLP equals 639 CTDI equals 13.2 Findings: Multiple contiguous thin section of the abdomen pelvis obtained from lower thorax to pubic symphysis without administration of intravenous or oral contrast material. The study correlated with prior exam of the 04/08/2018. The study demonstrates normal aeration of lung parenchyma at the bases. The liver and spleen are intact. The gallbladder is normal. The visualized pancreas intact. Large amount of fecal content throughout the colon fecal impaction the rectum Uterine bladder is markedly distended. There is evidence for mild bilateral hydronephrosis. There is no evidence of nephrolithiasis. Inhomogeneous prostate gland. Degenerative changes of lumbar sacral spine. IMPRESSION: Distended urinary bladder, mild hydronephrosis. Large amount of fecal content in the colon, fecal impaction the rectum. Generative changes lumbosacral spine. 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
== END 2018-10-09 16:45 ==
LOC: ER 13:51
DX: R10.9 Unspecified abdominal pain (principal); R11.0 Nausea; R19.7 Diarrhea, unspecified; Z85.038 Personal history of other malignant neoplasm of large intestine
CPT/HCPCS: 36415-UA; 80053-TC; 85025-TC; 93005